=== PATIENT | male | born 1945 | race Caucasian/White ===

== ENCOUNTER → 2020-08-30 10:49 | Outpatient (BNVA) | payer MEDICARE, MEDICAID, SELFPAY | PROVIDERS: PCP Internal Medicine; Visit Provider Urology | DX: N40.0 Benign prostatic hyperplasia without lower urinary tract symptoms (principal); R39.12 Poor urinary stream; R97.20 Elevated prostate specific antigen [PSA] | CPT/HCPCS: Q3014 ==

== ENCOUNTER 2021-03-02 19:30 | Emergency (ER) | payer MEDICARE, MEDICAID, SELFPAY ==
[2021-03-02 19:52] VITALS: BMI 23.0
--- NOTE | 2021-03-02 20:09 | ED_ITS ---
HPI - Fall General Chief Complaint: Fall Stated Complaint: Fall Time Seen by Provider: 03/02/21 20:00 Source: other Mode of arrival: ambulatory Limitations: altered mental status History of Present Illness HPI Narrative: Patient 76 years old with mental challenge brought by kick press operator is he got up from the toilet lost balance and fell hitting his head to the side rail. Patient Registration Supervisor was next to him and tried to break the fall patient did not fall completely does hit the head to the side rail since then patient is behaving at his baseline ambulatory no vomiting no seizures no change in mental status Related Data Home Medications Medication Instructions Recorded Confirmed chlorhexidine gluconate 0.12 % PO 02/10/20 02/10/20 mouthwash finasteride 5 mg tablet 5 mg PO DAILY 02/10/20 02/10/20 fluoxetine 10 mg capsule mg PO 02/10/20 02/10/20 loratadine 10 mg tablet 10 mg PO DAILY 02/10/20 02/10/20 lorazepam 2 mg tablet 2 mg PO BEDTIME PRN 02/10/20 02/10/20 melatonin 3 mg tablet 3 mg PO BEDTIME 02/10/20 02/10/20 multivitamin with folic acid 400 1 tab PO DAILY 02/10/20 02/10/20 mcg tablet omeprazole 20 mg capsule,delayed mg PO 02/10/20 02/10/20 release terazosin 1 mg capsule mg PO 02/10/20 02/10/20 erythromycin with ethanol 2 % 1 appl TOPICAL BID 08/30/20 topical gel fluoxetine 20 mg capsule 20 mg PO DAILY 08/30/20 fluticasone propionate 50 spray INTRANASAL 08/30/20 mcg/actuation nasal spray,suspension loperamide 2 mg capsule 0 mg PO 08/30/20 magnesium hydroxide 400 mg/5 mL 5 ml PO BID 08/30/20 oral suspension melatonin 3 mg capsule 3 mg PO BEDTIME PRN 08/30/20 melatonin 3 mg capsule 3 mg PO BEDTIME PRN 08/30/20 omeprazole 40 mg capsule,delayed 40 mg PO DAILY 08/30/20 release Previous Rx's Medication Instructions Recorded finasteride 5 mg tablet 5 mg PO DAILY 30 Days #30 tab 09/02/20 terazosin 1 mg capsule 1 mg PO BEDTIME 30 Days #30 cap 11/13/20 Allergies Allergy/AdvReac Type Severity Reaction Status Date / Time loxapine [LOXAPINE] Allergy Unknown UNKNOWN Verified 08/30/20 10:50 mesoridazine [From SERENTIL] Allergy Unknown UNKNOWN Verified 08/30/20 10:50 Phenothiazines Allergy Unknown UNKNOWN Verified 08/30/20 10:50 [PHENOTHIAZINES] Loxitane Allergy Unknown Unknown Uncoded 08/30/20 10:50 phenothiazines Allergy Unknown Unknown Uncoded 08/30/20 10:50 SUCCINATE Allergy Unknown UNKNOWN Uncoded 01/25/20 14:39 succinate Allergy Unknown Unknown Uncoded 08/30/20 10:50 Review of Systems Review of Systems: Yes Unobtainable due to mental status [facility] Past Medical History Medical History (Updated 03/02/21 @ 20:15 by Jax Sanz MD) Barretts esophagus BPH (benign prostatic hyperplasia) Edema Elevated PSA GERD (gastroesophageal reflux disease) Incomplete emptying of bladder Incontinent of urine Kyphoscoliosis Scoliosis Weak urinary stream Family History Family History Father No problems noted. Mother No problems noted. Social History Social History Advance Directives: No Advance Directives Information Provided: No Physical Exam Vital Signs: Vital Signs: Body Mass Index 23.0 Appearance: Alert. And awake ambulatory mentally challenged Eyes: PERRLA, HEENT: Pharynx normal. Oral Mucosa moist, superficial abrasion at the top of the head Neck: Normal inspection. Neck supple. No neck tenderness CVS: Normal heart rate and rhythm. Pulses normal. Respiratory: No respiratory distress. Equal air entry bilateral, Abdomen: Soft and nontender. Bowel sounds are present, no mass palpable, Skin: Skin warm and dry. Normal skin color. Normal skin turgor. Extremities: No lower extremity edema. No calf tenderness back; no spinal tenderness Neuro: Alert and awake at his baseline Discharge Plan Discharge Clinical Impression: Head injury Qualifiers: Encounter type: initial encounter Qualified Code(s): S09.90XA - Unspecified injury of head, initial encounter Patient Disposition: Home, Self-Care Instructions: Head Injury (ED) Additional Instructions: No significant injuries noticed No need for any imaging at this time Report to the ER if patient starts vomiting/seizures/change in mental status Prescriptions: No Action finasteride 5 mg tablet 5 mg PO DAILY 30 Days Qty: 30 RF: 11 terazosin 1 mg capsule 1 mg PO BEDTIME 30 Days Qty: 30 RF: 3 finasteride 5 mg tablet 5 mg PO DAILY RF: 0 lorazepam 2 mg tablet 2 mg PO BEDTIME PRNRF: 0 loratadine 10 mg tablet 10 mg PO DAILY RF: 0 omeprazole 20 mg capsule,delayed release(DR/EC) PO RF: 0 terazosin 1 mg capsule PO RF: 0 fluoxetine 10 mg capsule PO RF: 0 melatonin 3 mg tablet 3 mg PO BEDTIME RF: 0 Thera 400 mcg tablet 1 tab PO DAILY RF: 0 chlorhexidine gluconate 0.12 % mouthwash PO RF: 0
[2021-03-02 20:46] VITALS: RESP 16
== END 2021-03-02 20:59 | disposition home or self-care (01) ==
PROVIDERS: Emergency Provider Internal Medicine; PCP Internal Medicine
DX: S09.90XA Unspecified injury of head, initial encounter (principal); R41.82 Altered mental status, unspecified; G44.309 Post-traumatic headache, unspecified, not intractable; W01.0XXA Fall on same level from slipping, tripping and stumbling without subsequent striking against object, initial encounter; Y93.9 Activity, unspecified; Y92.9 Unspecified place or not applicable; Y99.9 Unspecified external cause status; Z79.899 Other long term (current) drug therapy
CPT/HCPCS: 99283; 99284

== ENCOUNTER 2021-06-05 15:07 | Outpatient (REF) | payer MEDICARE, MEDICAID, SELFPAY | END 2021-06-05 15:08 | disposition home or self-care (01) | LOC: HO.HMGCLNP 15:07 | PROVIDERS: PCP Urology; Visit Provider Urology | DX: R39.12 Poor urinary stream (principal) | CPT/HCPCS: 87086 ==

== ENCOUNTER → 2021-08-22 11:14 | Outpatient (BNVA) | payer MEDICARE, MEDICAID, SELFPAY | PROVIDERS: PCP Urology; Visit Provider Urology | DX: R97.20 Elevated prostate specific antigen [PSA] (principal); N40.1 Benign prostatic hyperplasia with lower urinary tract symptoms; R39.12 Poor urinary stream | CPT/HCPCS: 51798; 99212 ==

== ENCOUNTER 2022-01-06 14:42 | Outpatient (REF) | payer MEDICARE, MEDICAID, SELFPAY ==
[2022-01-06 16:41] LABS: Appearance Urine Cloudy; Color Urine Yellow; Glucose Urine UA Negative (Negative); Leukocyte Esterase Urine Large (3+) (Negative); Nitrite Urine Negative (Negative); PH 6.5 (5.0-9.0); Specific Gravity - Urine <= 1.005 (1.005-1.025); Urine Blood Small (1+) (Negative); Urine Ketones Negative (Negative); Urine Protein Negative (Neg-Trace)
[2022-01-06 17:00] LABS: Bacteria Urine Trace (None Seen); Hyaline Casts Urine 0-2 /LPF (0-2); RBC Urine 0-2 /HPF (0-2); Squamous Epithelial Cell Urine 0-2 /HPF (0-2); UACC Culture Trigger YES; WBC Urine >50 /HPF (0-5)
== END 2022-01-06 14:43 | disposition home or self-care (01) ==
LOC: HO.HMGCLNP 14:42
PROVIDERS: Visit Provider Urology
DX: N40.0 Benign prostatic hyperplasia without lower urinary tract symptoms (principal)
CPT/HCPCS: 81001; 87086; 87088; 87186

== ENCOUNTER → 2022-08-21 11:30 | Outpatient (BNVA) | payer MEDICARE, MEDICAID, SELFPAY | PROVIDERS: PCP Urology; Visit Provider Urology | DX: N40.1 Benign prostatic hyperplasia with lower urinary tract symptoms (principal); N13.8 Other obstructive and reflux uropathy; Z79.899 Other long term (current) drug therapy | CPT/HCPCS: 99212 ==

== ENCOUNTER 2022-10-22 16:37 | Outpatient (REF) | payer MEDICARE, MEDICAID, SELFPAY ==
[2022-10-22 17:28] LABS: Appearance Urine Cloudy; Color Urine Yellow; Glucose Urine UA Negative (Negative); Leukocyte Esterase Urine Large (3+) (Negative); Nitrite Urine Positive (Negative); UMIC TRIGGER UA YES; Urine Blood Trace (Negative); Urine Ketones Negative (Negative); Urine Protein Negative (Neg-Trace)
[2022-10-22 17:32] LABS: Bacteria Urine 4+ (None Seen); Hyaline Casts Urine 0-2 /LPF (0-2); RBC Urine 0-2 /HPF (0-2); Squamous Epithelial Cell Urine 0-2 /HPF (0-2); WBC Urine >50 /HPF (0-5)
== END 2022-10-22 16:38 | disposition home or self-care (01) ==
LOC: HO.LNP 16:37
PROVIDERS: Visit Provider Urology
DX: R39.12 Poor urinary stream (principal); N40.0 Benign prostatic hyperplasia without lower urinary tract symptoms
CPT/HCPCS: 81001; 87086; 87088; 87186

== ENCOUNTER 2022-11-08 16:25 | Emergency (ER) | payer MEDICARE, MEDICAID, SELFPAY ==
[2022-11-08 16:53] VITALS: BP 111/71; PULSE 80; RESP 18; TEMP 36.2; O2SAT 96; BMI 23.2
--- NOTE | 2022-11-08 16:57 | ED.GENADULT ---
HPI - General Adult General Chief complaint: Urogenital-Male Stated complaint: uti? 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 Patient usually is prone to antibiotic in the past. Related Data Home Medications Medication Instructions Recorded Confirmed chlorhexidine gluconate 0.12 % PO 02/10/20 02/10/20 mouthwash finasteride 5 mg tablet 5 mg PO DAILY 02/10/20 02/10/20 fluoxetine 10 mg capsule mg PO 02/10/20 02/10/20 loratadine 10 mg tablet 10 mg PO DAILY 02/10/20 02/10/20 lorazepam 2 mg tablet 2 mg PO BEDTIME PRN 02/10/20 02/10/20 melatonin 3 mg tablet 3 mg PO BEDTIME 02/10/20 02/10/20 multivitamin with folic acid 400 1 tab PO DAILY 02/10/20 02/10/20 mcg tablet omeprazole 20 mg capsule,delayed mg PO 02/10/20 02/10/20 release terazosin 1 mg capsule mg PO 02/10/20 02/10/20 erythromycin with ethanol 2 % 1 appl topical BID 08/30/20 topical gel fluoxetine 20 mg capsule 20 mg PO DAILY 08/30/20 fluticasone propionate 50 spray intranasal 08/30/20 mcg/actuation nasal spray,suspension loperamide 2 mg capsule 0 mg PO 08/30/20 magnesium hydroxide 400 mg/5 mL 5 ml PO BID 08/30/20 oral suspension melatonin 3 mg capsule 3 mg PO BEDTIME PRN 08/30/20 melatonin 3 mg capsule 3 mg PO BEDTIME PRN 08/30/20 omeprazole 40 mg capsule,delayed 40 mg PO DAILY 08/30/20 release Previous Rx's Medication Instructions Recorded sulfamethoxazole 800 1 tab PO BID 7 days #14 tabs 01/08/22 mg-trimethoprim 160 mg tablet (Bactrim DS) terazosin 1 mg capsule 1 mg PO BEDTIME 30 days #30 caps 03/11/22 finasteride 5 mg tablet 5 mg PO DAILY 90 days #90 tabs 09/16/22 cefuroxime axetil 500 mg tablet 500 mg PO BID #14 tabs 11/09/22 Allergies Allergy/AdvReac Type Severity Reaction Status Date / Time loxapine [LOXAPINE] Allergy Unknown UNKNOWN Verified 11/08/22 16:53 mesoridazine [From SERENTIL] Allergy Unknown UNKNOWN Verified 11/08/22 16:53 Phenothiazines Allergy Unknown UNKNOWN Verified 11/08/22 16:53 [PHENOTHIAZINES] Loxitane Allergy Unknown Unknown Uncoded 08/21/22 11:52 phenothiazines Allergy Unknown Unknown Uncoded 08/21/22 11:52 SUCCINATE Allergy Unknown UNKNOWN Uncoded 08/21/22 11:52 succinate Allergy Unknown Unknown Uncoded 08/21/22 11:52 Review of Systems Review of Systems: All other systems are reviewed and are negative Constitutional: Reports as per HPI and Reports no additional constitutional complaints Eyes: Reports as per HPI and Reports no additional eye complaints Reports system reviewed and no additional complaints, except as documented Cardiovascular: Reports as per HPI and Reports no additional cardiovascular complaints Respiratory: Reports as per HPI and Reports no additional respiratory complaints Gastrointestinal: Reports as per HPI and Reports no additional gastrointestinal complaints Genitourinary: Reports no additional female genitourinary complaints Musculoskeletal: Reports no additional musculoskeletal complaints Skin/Breast: Reports system reviewed and no additional complaints, except as docu Psychiatric: Reports no additional psychiatric complaints Endocrine: Reports no additional endocrine complaints Hematologic/Lymphatic: Reports no additional hematologic/lymphatic complaints Allergic/Immunologic: Reports no additional allergic/immunologic complaints Reports system reviewed and no additional complaints, except as documented and Reports Abnormal speech present [facility] Past Medical History Medical History Barretts esophagus BPH (benign prostatic hyperplasia) Edema Elevated PSA GERD (gastroesophageal reflux disease) Incomplete emptying of bladder Incontinent of urine Kyphoscoliosis Scoliosis Weak urinary stream Family History Family History Father No problems noted. Mother No problems noted. Social History Social History Alcohol intake: never Patient Tobacco Use Status: Never used Tobacco Smoked in Last 30 Days: No Use of substances other than those prescribed or required for medical reasons: No Advance Directives: No Advance Directives Information Provided: No Physical Exam ED Vital Signs: Vital Signs - 24 hr 11/08/22 16:53 11/09/22 00:17 Temperature 97.2 F 98.0 F Pulse Rate 80 106 H Respiratory Rate 18 20 Blood Pressure 111/71 132/74 Pulse Oximetry 96 98 Oxygen Delivery Method Room Air Room Air BMI result Body Mass Index 23.2 Vital signs have been reviewed as appeared to be correct. Blood pressure normal. Heart rate normal. Respiration rate normal. Temperature normal. Oxygen saturation normal. Appearance: Alert. No acute distress. Head: Normal external exam. Normocephalic. Atraumatic. No Vazquez signs noted. No raccoon eyes noted Eyes: PERRLA. EOMI. Conjunctiva and sclera normal. Eyelids normal. ENT: TM's Normal. Pharynx normal. Uvula midline. Moist mucous membranes. No trismus noted. No drooling noted. No muffled voice noted. Neck: Normal inspection. Neck supple. FROM. No adenopathy. Thyroid Normal. No meningeal signs. No neck mass noted. CVS: Normal heart rate and rhythm. Heart sound normal. No murmurs noted. Pulses normal throughout. Respiratory: No respiratory distress. Painless inspiration. Breath sounds normal. No wheezes/rales/rhonchi noted. Chest nontender. No accessory muscle usage noted or decreased air movement noted. Abdomen: Soft and nontender. Bowel sounds normal in all 4 quadrants. No distention noted. No organomegaly noted. No visible injury noted. Back: No CVA tenderness. Full range of motion noted. Skin: Skin warm and dry. Normal skin color. Normal skin turgor. No rashes/lesions/lacerations noted. Extremities: No lower extremity edema. Extremities exhibit normal range of motion. Extremities nontender. Neuro: Cranial nerve exam: II-XII are grossly intact No motor deficit. No sensory deficit. Reflexes normal. Course Course Course Narrative: RME: 77 yold male brought to ED from care home for foul odor UA and increase urinary freqeuncy. As per care home patient has recurrent UTIS. labs and UA ordered Reevaluation(s) Reevaluation #1: 77-year-old male came in for mild UTI symptoms urine is showing mild UTI will start the patient on cefuroxime for 7 days and encouraged to drink plenty of fluids. Repeat abdominal exam is benign with no abdominal pain. Patient has no nausea, no vomiting, according to the staff patient at his baseline. Time: 01:01 Medical Decision Making Differential Diagnosis Differential Diagnoses: The differential diagnosis associated with the presentation includes (UTI, sepsis, septic shock, electrolyte abnormalities, anemia.) Admission/Observation Consideration of admission/observation: Escalation of care including admission/observation considered Lab Data MDM Lab Attestation statement: I reviewed the patient's lab results. 11/08/22 18:45 11/08/22 18:45 Labs: Lab Results 11/08/22 11/08/22 11/09/22 Range/Units 18:45 18:45 00:07 WBC 6.2 (4.8-10.8) X10*3/uL RBC 4.35 L (4.60-5.80) X10*6/uL Hgb 12.7 L (14.0-18.0) g/dl Hct 38.7 L (42.0-52.0) % MCV 89.0 (80.0-98.0) fL MCH 29.2 (27.0-33.0) pg MCHC 32.8 (31.0-36.0) g/dl RDW 13.4 (11.0-16.0) % Plt Count 243 (160-400) X10*3/uL MPV 11.5 (9.4-12.4) fL Immature Gran % (Auto) 0.3 (0.0-0.4) % Neut % (Auto) 59.1 (45-73) % Lymph % (Auto) 22.7 (20-40) % [place] % (Auto) 10.9 (2-11) % Eos % (Auto) 6.4 H (0-4) % Baso % (Auto) 0.6 (0-2) % Lymph # (Auto) 1.4 (1.2-4.9) X10*3/uL [place] # (Auto) 0.7 (0.1-1.2) X10*3/uL Eos # (Auto) 0.4 (0.0-0.4) X10*3/uL Baso # (Auto) 0.0 (0.0-0.2) X10*3/uL Abs Immat Gran (auto) 0.02 (0.00-0.03) X10*3/uL Absolute Neuts (auto) 3.7 (2.0-8.3) x10*3/uL Absolute Nucleated RBC 0.000 (0.0-0.012) X10*3/uL Nucleated RBC % (auto) 0.0 (0.0-0.2) /100WBC Sodium 140 (135-145) mmol/L Potassium 4.1 (3.3-5.1) mmol/L Chloride 105 (96-108) mmol/L Carbon Dioxide 25 (22-29) mmol/L Anion Gap 14 (12-20) BUN 32 H (9-16) mg/dL Creatinine 0.86 (0.5-1.4) mg/dL Estim Creat Clear Calc 55.5 Estimated GFR > 60 Random Glucose 114 (60-115) mg/dL Calcium 9.4 (8.4-10.2) mg/dL Total Bilirubin 0.4 (0.0-1.0) mg/dL AST 22 (5-37) U/L ALT 18 (0-40) U/L Alkaline Phosphatase 73 (39-117) U/L Total Protein 7.6 (6.5-8.0) g/dL Albumin 3.9 (3.5-5.0) g/dL Urine Color Dark Yellow Urine Appearance Clear Urine pH 5.5 (5.0-9.0) Ur Specific [place] 1.025 (1.005-1.025) Urine Protein 30 (1+) H (Neg-Trace) mg/dL Urine Glucose (UA) Negative (Negative) mg/dL Urine Ketones Trace (Negative) mg/dL Urine Blood Moderate (2+) H (Negative) Urine Nitrite Negative (Negative) Ur Leukocyte Esterase Moderate (2+) H (Negative) Urine RBC 6-10 H (0-2) /HPF Urine WBC 11-20 (0-5) /HPF Ur Squamous Epith Cells 3-5 (0-2) /HPF Calcium Oxalate Crystal Present Urine Bacteria Trace (None Seen) Hyaline Casts 11-20 (0-2) /LPF Independent Historian Clinical information obtained from an independent historian. History obtained from or confirmed by: Other (Caregiver) Discharge Plan Discharge Clinical Impression: Acute UTI Patient Disposition: Xfer [facility] Instructions: Urinary Tract Infection in Men (ED) Prescriptions: New cefuroxime axetil 500 mg tablet 500 mg PO BID Qty: 14 0RF No Action sulfamethoxazole-trimethoprim [Bactrim DS] 800-160 mg tablet 1 tab PO BID 7 Days Qty: 14 0RF terazosin 1 mg capsule 1 mg PO BEDTIME 30 Days Qty: 30 11RF finasteride 5 mg tablet 5 mg PO DAILY 90 Days Qty: 90 3RF finasteride 5 mg tablet 5 mg PO DAILY lorazepam 2 mg tablet 2 mg PO BEDTIME PRN loratadine 10 mg tablet 10 mg PO DAILY omeprazole 20 mg capsule,delayed release(DR/EC) PO terazosin 1 mg capsule PO fluoxetine 10 mg capsule PO melatonin 3 mg tablet 3 mg PO BEDTIME Thera 400 mcg tablet 1 tab PO DAILY chlorhexidine gluconate 0.12 % mouthwash PO omeprazole 40 mg capsule,delayed release(DR/EC) 40 mg PO DAILY fluoxetine 20 mg capsule 20 mg PO DAILY magnesium hydroxide 400 mg/5 mL suspension 5 ml PO BID melatonin 3 mg capsule 3 mg PO BEDTIME PRN fluticasone propionate 50 mcg/actuation spray,suspension intranasal loperamide 2 mg capsule 0 mg PO melatonin 3 mg capsule 3 mg PO BEDTIME PRN erythromycin with ethanol 2 % gel 1 appl topical BID Referrals: John Carmona MD [Primary Care Provider] - Interventions: ED Discharge Assessment Last Done: 11/09/22 01:57 Discharge Date/Time: 11/09/22 01:57
--- NOTE | 2022-11-09 00:10 | PC.NURSE ---
pt was straight cath, tolerated well
[2022-11-09 00:17] VITALS: BP 132/74; PULSE 106; RESP 20; TEMP 36.7; O2SAT 98
--- NOTE | 2022-11-09 01:34 | MHC.EDTECH ---
call out to [facility] to book transport back to senior living at [id number], ETA given was 0200
== END 2022-11-09 01:57 | disposition skilled nursing facility (03) ==
PROVIDERS: Emergency Provider Emergency Medicine; PCP Internal Medicine
DX: N39.0 Urinary tract infection, site not specified (principal); R35.0 Frequency of micturition
CPT/HCPCS: 36415; 80053; 81001; 85025; 87086; 99283; 99284

== ENCOUNTER 2023-04-09 18:08 | Emergency (ER) | payer MEDICARE, MEDICAID, SELFPAY ==
--- NOTE | ~2023-04-09 | XR_ITS ---
EXAMINATION: XR CHEST CLINICAL INFORMATION: Shortness of breath. COMPARISON: None available. TECHNIQUE: AP view of the chest was obtained. FINDINGS: Severe scoliosis with rotation limits the evaluation of parenchymal details. Equivocal focal retrocardiac opacities. No significant pleural effusion or pneumothorax. Normal heart size. Pronounced scoliosis with rib cage deformity. No acute osseous findings. Nonspecific colonic gaseous distention in the upper abdomen. XR/XR chest 1V IMPRESSION: 1. Equivocal focal retrocardiac opacities. Correlate clinically for aspiration or pneumonia. 2. Pronounced scoliosis. 3. Nonspecific colonic gaseous distention; further evaluation with abdominal radiograph as clinically warranted.
--- NOTE | ~2023-04-09 | US_ITS ---
EXAMINATION: US VENOUS ULTRASOUND WITH DOPPLER LOWER EXTREMITY, BILATERAL CLINICAL INFORMATION: Bilateral lower extremity edema. COMPARISON: None available. TECHNIQUE: Ultrasound of the deep veins is performed from the hip to the calf with compression sonography and color and pulse Doppler assessment. Spectral analysis with color-flow imaging is performed. FINDINGS: RIGHT: There is normal venous compression and respiratory variation and augmented flow. The visualized common femoral vein, superficial femoral vein, profunda femoral vein, popliteal vein, and the visualized trifurcation region shows no evidence of deep venous thrombosis. The peroneal vein is not seen. There is no significant popliteal fossa cyst. LEFT: There is normal venous compression and respiratory variation and augmented flow. The visualized common femoral vein, superficial femoral vein, profunda femoral vein, popliteal vein, and the visualized trifurcation region shows no evidence of deep venous thrombosis. The peroneal vein is not seen. There is no significant popliteal fossa cyst. If the patient's symptoms persist, followup ultrasound in 5 days 7 days might be of value to exclude proximal propagation from a non-visualized calf vein. US/US venous duplex LE BI IMPRESSION: No DVT demonstrated in the bilateral lower extremities.
[2023-04-09 18:13] VITALS: BP 128/74; BP 138/69; PULSE 86; PULSE 88; RESP 18; O2SAT 95; O2SAT 96; BMI 25.6
--- NOTE | 2023-04-09 19:36 | ED_ITS ---
HPI - General Adult General Chief complaint: General Medical Stated complaint: Possible choking then cleared with vomiting. Time Seen by Provider: 04/09/23 18:15 Source: other (nursing home director) Limitations: other (cognitively impaired) History of Present Illness HPI narrative: Pt is a 78yo male who presents to the ED with his nursing home director after vomiting multiple times after dinner. Pt is cognitively impaired and nonverbal so information obtained from nursing home director. Director states that the pt ate spaghetti at approximately 1730 and right after he began vomiting it up. After vomiting the director states that employees were concerned that he was wheezing and possibly choked. Additionally the director says that the pt has had increased swelling of his feet that was noticed last night and is associated with itching. Pt saw specialist earlier today for this concern. Related Data Home Medications Medication Instructions Recorded Confirmed chlorhexidine gluconate 0.12 % PO 02/10/20 02/10/20 mouthwash finasteride 5 mg tablet 5 mg PO DAILY 02/10/20 02/10/20 fluoxetine 10 mg capsule mg PO 02/10/20 02/10/20 loratadine 10 mg tablet 10 mg PO DAILY 02/10/20 02/10/20 lorazepam 2 mg tablet 2 mg PO BEDTIME PRN 02/10/20 02/10/20 melatonin 3 mg tablet 3 mg PO BEDTIME 02/10/20 02/10/20 multivitamin with folic acid 400 1 tab PO DAILY 02/10/20 02/10/20 mcg tablet omeprazole 20 mg capsule,delayed mg PO 02/10/20 02/10/20 release terazosin 1 mg capsule mg PO 02/10/20 02/10/20 erythromycin with ethanol 2 % 1 appl topical BID 08/30/20 topical gel fluoxetine 20 mg capsule 20 mg PO DAILY 08/30/20 fluticasone propionate 50 spray intranasal 08/30/20 mcg/actuation nasal spray,suspension loperamide 2 mg capsule 0 mg PO 08/30/20 magnesium hydroxide 400 mg/5 mL 5 ml PO BID 08/30/20 oral suspension melatonin 3 mg capsule 3 mg PO BEDTIME PRN 08/30/20 melatonin 3 mg capsule 3 mg PO BEDTIME PRN 08/30/20 omeprazole 40 mg capsule,delayed 40 mg PO DAILY 08/30/20 release Previous Rx's Medication Instructions Recorded sulfamethoxazole 800 1 tab PO BID 7 days #14 tabs 01/08/22 mg-trimethoprim 160 mg tablet (Bactrim DS) finasteride 5 mg tablet 5 mg PO DAILY 90 days #90 tabs 09/16/22 cefuroxime axetil 500 mg tablet 500 mg PO BID #14 tabs 11/09/22 terazosin 1 mg capsule 1 mg PO BEDTIME 30 days #30 caps 03/08/23 amoxicillin 875 mg-potassium 1 tab PO BID #14 tabs 04/09/23 clavulanate 125 mg tablet Allergies Allergy/AdvReac Type Severity Reaction Status Date / Time loxapine [LOXAPINE] Allergy Unknown UNKNOWN Verified 11/08/22 16:53 mesoridazine [From SERENTIL] Allergy Unknown UNKNOWN Verified 11/08/22 16:53 Phenothiazines Allergy Unknown UNKNOWN Verified 11/08/22 16:53 [PHENOTHIAZINES] Loxitane Allergy Unknown Unknown Uncoded 08/21/22 11:52 phenothiazines Allergy Unknown Unknown Uncoded 08/21/22 11:52 SUCCINATE Allergy Unknown UNKNOWN Uncoded 08/21/22 11:52 succinate Allergy Unknown Unknown Uncoded 08/21/22 11:52 Review of Systems 2 Review of Systems: Yes Unobtainable due to mental condition (pt nonverbal and cognitively impaired) Constitutional: Constitutional: Denies chills and Denies fever(s) Gastrointestinal: Gastrointestinal: Reports vomiting PMFSH Past Medical History Medical History Barretts esophagus BPH (benign prostatic hyperplasia) Edema Elevated PSA GERD (gastroesophageal reflux disease) Incomplete emptying of bladder Incontinent of urine Kyphoscoliosis Scoliosis Weak urinary stream Family History Family History Father No problems noted. Mother No problems noted. Social History Social History Alcohol intake: never Patient Tobacco Use Status: Never used Tobacco Advance Directives: No Advance Directives Information Provided: No Physical Exam ED Vital Signs: Vital Signs - 24 hr 04/09/23 18:13 04/09/23 20:00 Pulse Rate 88 106 H Respiratory Rate 18 20 Blood Pressure 138/69 153/82 H Pulse Oximetry 95 96 Oxygen Delivery Method Room Air Room Air BMI result Body Mass Index 25.6 Const General: no acute distress, alert, awake and Physically active Orientation/consciousness: Other orientation findings (conscious) Limitations: behavioral limitations, physical limitations and other limitations (cognitively impaired) [facility] Head: Yes normal to inspection Ears: hearing grossly normal bilaterally General nose exam: Normal external nose present Eyes General: appearance normal, both eyes and all related structures Resp Effort & Inspection: normal respiratory effort Auscultation: clear to auscultation bilaterally Cardio Rate: regular rate Rhythm: regular rhythm Heart sounds: S1 normal heart sound present and S2 normal heart sound present GI Palpation (GI): Soft to palpation and no guarding Neuro General: moves all extremities Extrem Right lower extremity: edema (edema to the top of the foot with erythema) Left lower extremity: edema (top of foot with erythema) and lower leg (superficial scratches) Course Reevaluation(s) Reevaluation #1: Chest x-ray shows concern for aspiration pneumonia, given the history. The patient treated for this with Augmentin. He has not been hypoxic, tachypneic to suggest any respiratory distress. He has no leukocytosis. The patient is stable for discharge. I discussed this with the nursing home staff. Time: 21:35 Medications Administered Discontinued Medications Generic Name Dose Route Start Last Admin Trade Name Freq PRN Reason Stop Dose Admin Amoxicillin/Clavulanate Potassium 875 mg 04/09/23 21:33 04/09/23 21:54 Amoxicillin/Potassium Clav 875 Mg Tablet PO 04/09/23 21:34 875 mg ONCE ONE Administration Medical Decision Making Medical Decision Making [facility] Narrative: 78-year-old male with history of adenocarcinoma of the esophagus, mental retardation with very limited historian presents for evaluation episode of vomiting after eating dinner. Will check basic labs on the patient not vomiting. He also his leg swelling to the bilateral lower extremities which were present for last few days any apparently followed up with a specialist earlier today regarding this. Will get ultrasound to rule out DVT. Will get it a chest x-ray to evaluate for pleural effusions and heart failure. The patient's lungs sound clear, oxygen saturation is 95%. I have a low suspicion for aspiration, there was no witnessed choking episode, he was vomiting only. Differential Diagnosis Differential Diagnoses: The differential diagnosis associated with the presentation includes (new onset chf, aspiration of foreign body, gastroenteritis, pedal swelling secondary to footwear, dermatitis, leg edema) Admission/Observation Consideration of admission/observation: Escalation of care including admission/observation considered Concern for aspiration pneumonia Lab Data MDM Lab Attestation statement: I reviewed the patient's lab results. No leukocytosis. The patient has a chronic baseline anemia. Normal platelet count. The elevated 26 a normal creatinine 0.77. 04/09/23 20:05 04/09/23 20:05 Labs: Lab Results 04/09/23 04/09/23 04/09/23 Range/Units 20:05 20:07 21:53 WBC 6.8 (4.8-10.8) X10*3/uL RBC 4.12 L (4.60-5.80) X10*6/uL Hgb 12.0 L (14.0-18.0) g/dl Hct 36.9 L (42.0-52.0) % MCV 89.6 (80.0-98.0) fL MCH 29.1 (27.0-33.0) pg MCHC 32.5 (31.0-36.0) g/dl RDW 14.5 (11.0-16.0) % Plt Count 182 D (160-400) X10*3/uL MPV 10.6 (9.4-12.4) fL Immature Gran % (Auto) 0.3 (0.0-0.4) % Neut % (Auto) 54.2 (45-73) % Lymph % (Auto) 21.8 (20-40) % [place] % (Auto) 15.0 H (2-11) % Eos % (Auto) 8.3 H (0-4) % Baso % (Auto) 0.4 (0-2) % Lymph # (Auto) 1.5 (1.2-4.9) X10*3/uL [place] # (Auto) 1.0 (0.1-1.2) X10*3/uL Eos # (Auto) 0.6 H (0.0-0.4) X10*3/uL Baso # (Auto) 0.0 (0.0-0.2) X10*3/uL Abs Immat Gran (auto) 0.02 (0.00-0.03) X10*3/uL Absolute Neuts (auto) 3.7 (2.0-8.3) x10*3/uL Absolute Nucleated RBC 0.000 (0.0-0.012) X10*3/uL Nucleated RBC % (auto) 0.0 (0.0-0.2) /100WBC Sodium 140 (135-145) mmol/L Potassium 4.6 (3.3-5.1) mmol/L Chloride 110 H (96-108) mmol/L Carbon Dioxide 25 (22-29) mmol/L Anion Gap 10 L (12-20) BUN 26 H (9-16) mg/dL Creatinine 0.77 (0.5-1.4) mg/dL Estim Creat Clear Calc 57.7 Estimated GFR > 60 POC Glucose 173 H (60-115) mg/dL Random Glucose 172 H (60-115) mg/dL Calcium 8.3 L D (8.4-10.2) mg/dL Total Bilirubin 0.3 (0.0-1.0) mg/dL AST 23 (5-37) U/L ALT 27 (0-40) U/L Alkaline Phosphatase 67 (39-117) U/L B-Natriuretic Peptide 18 (<100) pg/mL Total Protein 6.6 (6.5-8.0) g/dL Albumin 3.6 (3.5-5.0) g/dL Lipase 13 (8-78) U/L Independent Interpretation I performed an independent interpretation of an: Plain X-Ray (No effusions or focal infiltrate) Radiology Impression Discussion of test interpretation with radiology: I have reviewed the radiologist's reading. (Concern for aspiration pneumonia) Discharge Plan Discharge Clinical Impression: Aspiration pneumonia Patient Disposition: Home, Self-Care Instructions: Aspiration Pneumonia (DC), Aspiration Precautions (ED) Additional Instructions: Aviva has evidence of aspiration pneumonia on x-ray. Take the antibiotic twice daily for 7 days Return for new or worsening symptoms He may take all of his other medications as prescribed Prescriptions: New amoxicillin-pot clavulanate 875-125 mg tablet 1 tab PO BID Qty: 14 0RF No Action sulfamethoxazole-trimethoprim [Bactrim DS] 800-160 mg tablet 1 tab PO BID 7 Days Qty: 14 0RF finasteride 5 mg tablet 5 mg PO DAILY 90 Days Qty: 90 3RF terazosin 1 mg capsule 1 mg PO BEDTIME 30 Days Qty: 30 11RF cefuroxime axetil 500 mg tablet 500 mg PO BID Qty: 14 0RF finasteride 5 mg tablet 5 mg PO DAILY lorazepam 2 mg tablet 2 mg PO BEDTIME PRN loratadine 10 mg tablet 10 mg PO DAILY omeprazole 20 mg capsule,delayed release(DR/EC) PO terazosin 1 mg capsule PO fluoxetine 10 mg capsule PO melatonin 3 mg tablet 3 mg PO BEDTIME Thera 400 mcg tablet 1 tab PO DAILY chlorhexidine gluconate 0.12 % mouthwash PO omeprazole 40 mg capsule,delayed release(DR/EC) 40 mg PO DAILY fluoxetine 20 mg capsule 20 mg PO DAILY magnesium hydroxide 400 mg/5 mL suspension 5 ml PO BID melatonin 3 mg capsule 3 mg PO BEDTIME PRN fluticasone propionate 50 mcg/actuation spray,suspension intranasal loperamide 2 mg capsule 0 mg PO melatonin 3 mg capsule 3 mg PO BEDTIME PRN erythromycin with ethanol 2 % gel 1 appl topical BID
[2023-04-09 20:00] VITALS: BP 153/82; PULSE 106; RESP 20; O2SAT 96
[2023-04-09 20:11] LABS: MANUAL DIFF FLAG NO
[2023-04-09 20:13] LABS: Basophils Percent Auto 0.4 % (0-2); Eosinophils Absolute Auto 0.6 X10*3/uL (0.0-0.4); Eosinophils Percent Auto 8.3 % (0-4); Hematocrit 36.9 % (42.0-52.0); Imm Gran Abs Auto 0.02 X10*3/uL (0.00-0.03); Imm Gran Pct Auto 0.3 % (0.0-0.4); Lymphocytes Absolute Auto 1.5 X10*3/uL (1.2-4.9); Lymphocytes Percent Auto 21.8 % (20-40); Mean Corpuscular HGB Conc 32.5 g/dl (31.0-36.0); Mean Corpuscular Hemoglobin 29.1 pg (27.0-33.0); Mean Corpuscular Volume 89.6 fL (80.0-98.0); Mean Platelet Volume 10.6 fL (9.4-12.4); Neutrophils Absolute Auto 3.7 x10*3/uL (2.0-8.3); Neutrophils Percent Auto 54.2 % (45-73); Platelet Count 182 X10*3/uL (160-400); Red Blood Count 4.12 X10*6/uL (4.60-5.80); Red Cell Distribution Width 14.5 % (11.0-16.0); White Blood Count 6.8 X10*3/uL (4.8-10.8)
[2023-04-09 20:37] LABS: Alanine Aminotransferase 27 U/L (0-40); Albumin Level 3.6 g/dL (3.5-5.0); Alkaline Phosphatase 67 U/L (39-117); Anion Gap 10 (12-20); Aspartate Amino Transferase 23 U/L (5-37); Bilirubin Total 0.3 mg/dL (0.0-1.0); Blood Urea Nitrogen 26 mg/dL (9-16); Calcium 8.3 mg/dL (8.4-10.2); Carbon Dioxide 25 mmol/L (22-29); Chloride 110 mmol/L (96-108); Creatinine Clr Calc Pharmacy 57.7; Estimated Glomerular Filt Rate > 60; Glucose Random 172 mg/dL (60-115); Lipase 13 U/L (8-78); Potassium 4.6 mmol/L (3.3-5.1); Sodium 140 mmol/L (135-145); Total Protein 6.6 g/dL (6.5-8.0)
[2023-04-09 20:44] LABS: B Type Natriuretic Peptide 18 pg/mL (<100)
[2023-04-09] MEDS: Amoxicillin/Potassium Clav 875 MG TABLET PO (21:54)
[2023-04-09 21:56] LABS: Glucose, Whole Blood 173 mg/dL (60-115)
== END 2023-04-09 23:22 | disposition home or self-care (01) ==
PROVIDERS: Physician Assistant; Emergency Provider Emergency Medicine
DX: J69.0 Pneumonitis due to inhalation of food and vomit (principal); R09.89 Other specified symptoms and signs involving the circulatory and respiratory systems; R60.0 Localized edema; R06.02 Shortness of breath; Z79.899 Other long term (current) drug therapy
CPT/HCPCS: 36415; 71045; 80053; 82947; 83690; 83880; 85025; 93970; 99284

== ENCOUNTER 2023-08-26 10:39 | Outpatient (AMB) | payer MEDICARE, MEDICAID, SELFPAY ==
--- NOTE | 2023-08-26 10:51 | MHC.OFFVIS ---
Intake Intake Visit Reasons: 1y follow up Intake Note: Patient is Present for Follow Up Urology Medication: Finasteride Antibiotic Allergies:None Blood Thinners: None Allergies loxapine [LOXAPINE] Allergy (Unknown, Verified 08/26/23 10:51) UNKNOWN mesoridazine [From SERENTIL] Allergy (Unknown, Verified 08/26/23 10:51) UNKNOWN Phenothiazines [PHENOTHIAZINES] Allergy (Unknown, Verified 08/26/23 10:51) UNKNOWN Loxitane Allergy (Unknown, Uncoded 08/26/23 10:51) Unknown phenothiazines Allergy (Unknown, Uncoded 08/26/23 10:51) Unknown SUCCINATE Allergy (Unknown, Uncoded 08/26/23 10:51) UNKNOWN succinate Allergy (Unknown, Uncoded 08/26/23 10:51) Unknown Medication List - Last Reconciled 08/26/23 by Jeffry Dc MD amoxicillin-pot clavulanate 875-125 mg 1 tab PO BID cefuroxime axetil 500 mg PO BID chlorhexidine gluconate 0.12% PO erythromycin with ethanol 2 % 1 appl topical BID finasteride 5 mg PO DAILY 90 days fluoxetine 20 mg PO DAILY fluticasone propionate 50 mcg/actuation sprays intranasal loperamide 0 mg PO loratadine 10 mg PO DAILY lorazepam 2 mg PO BEDTIME PRN magnesium hydroxide 5 mL PO BID melatonin 3 mg PO BEDTIME multivitamin with folic acid 400 mcg 1 tab PO DAILY omeprazole mg PO omeprazole 40 mg PO DAILY terazosin 1 mg PO BEDTIME 30 days HPI HPI Comments History of Present Illness Details Mr Rosa is a very pleasant male. He is a patient of Dr. Carmona. He is seen for the following urologic conditions. - lower urinary tract symptoms - elevated PSA Yearly appointment He is a [facility] of a [facility] Symptoms managed with timed voiding +medications Continue with finasteride and alpha-sarah Elevated PSA/Abnormal SARAVANAN: He presents for further evaluation of elevated PSA. Current management is medication with 5AR, low dose alpha sarah. Laboratory investigations include a total PSA evaluation May 2014 2.7, May 2015 3.4, November 2015 4.4, July 2016 1.6, Dec 2016 1.6 01/25 1.6, 01/26 1.8, 08/28 1.8, 08/28 1.4, 08/30 1.0 Individualized Prostate Cancer Risk Calculator < 5% high risk. Symptoms include incomplete emptying, frequency, urgency, and are , and are stable - responds to terazosin 1mg. Overall symptoms are mild. His prior IPSS was moderate. Therapeutic plan will be continued surveillance on finasteride and terazosin PFS Medical History Barretts esophagus Kyphoscoliosis Scoliosis Edema GERD (gastroesophageal reflux disease) Incomplete emptying of bladder Weak urinary stream Incontinent of urine BPH (benign prostatic hyperplasia) Elevated PSA Family History Father No problems noted. Mother No problems noted. Social History Alcohol intake: never Patient Tobacco Use Status: Never used Tobacco Review of Systems Const Denies chills and Denies fever(s) Card Reports no additional complaints and Denies syncope Resp Denies cough GI Denies abdominal pain and Denies heartburn Reports as per HPI and Denies change in libido Neuro Denies syncope Psych Denies change in libido Endo Denies change in libido Physical Exam Const General: cooperative, healthy appearing, comfortable and no acute distress Orientation/consciousness: patient oriented x3 HEENT Face and sinus: Yes normal facial exam Mouth: moist mucous membranes Neck Neck: Yes normal visual inspection, Yes full ROM and Yes trachea midline Chest Chest palpation & inspection: normal inspection of the chest Resp Effort & Inspection: normal respiratory effort, able to speak in complete sentences and no respiratory distress GI Inspection: Yes normal to inspection Back/Spine/Pelvis Cervical Spine: normal cervical lordosis Thoracic/Lumbar Spine: thoracic and lumbar spine normal to inspection Skin General skin exam: no rashes or lesions noted Neuro General: patient oriented x3, gait normal, tone normal and moves all extremities Extrem General: Yes normal to inspection and Yes capillary refill normal Assessment & Plan Assessment & Plan (1) Elevated PSA: Code(s): R97.20 - Elevated prostate specific antigen [PSA] (2) Weak urinary stream: Code(s): R39.12 - Poor urinary stream (3) BPH (benign prostatic hyperplasia): Code(s): N40.0 - Benign prostatic hyperplasia without lower urinary tract symptoms Plan 12 month follow-up Continue medication Medications: Refilled terazosin 1 mg PO BEDTIME 30 days 30 caps 11RF finasteride 5 mg PO DAILY 90 days 90 tabs 3RF Discontinued sulfamethoxazole-trimethoprim 800-160 mg (Bactrim DS) Discontinued Reason: Patient Completed Course 1 tab PO BID 7 days 14 tabs 0RF Patient Instructions: Imaging studies, laboratory and physical exam results were discussed and reviewed in detail. No major barriers to patient understanding were identified. An opportunity to ask questions regarding the treatment plan was provided. All questions were answered. The patient expressed understanding and agreement with the above treatment plan. The patient is aware they should contact our office by phone for worsening of their current condition or the appearance of new urologic symptoms. Compliance is encouraged with any medications and followup testing that is ordered. It is a privilege to participate in the urologic care of your patient. If you have any questions or concerns regarding treatment for the above conditions, or other urologic issues, please do not hesitate to contact me. The office telephone contact is [phone]. This note is constructed using voice recognition software. While every effort has been made to ensure accuracy system dispatcher errors may have been included. Yours sincerely, Dr Jeffry Dc MD, [facility] - Urology Providers of Expert, Compassionate Care for the Genitourinary System Coding Level of Care Code Est Pt Level 4 (25787) Diagnoses Elevated PSA R97.20 Weak urinary stream R39.12 BPH (benign prostatic hyperplasia) N40.0
== END 2023-08-26 11:05 | disposition home or self-care (01) ==
PROVIDERS: Visit Provider Urology
DX: R97.20 Elevated prostate specific antigen [PSA] (principal); R39.12 Poor urinary stream; N40.0 Benign prostatic hyperplasia without lower urinary tract symptoms
CPT/HCPCS: 99213

== ENCOUNTER → 2023-08-26 10:39 | Outpatient (BNVA) | payer MEDICARE, MEDICAID, SELFPAY | PROVIDERS: Visit Provider Urology | DX: N40.1 Benign prostatic hyperplasia with lower urinary tract symptoms (principal); N13.8 Other obstructive and reflux uropathy; R39.12 Poor urinary stream; R97.20 Elevated prostate specific antigen [PSA] | CPT/HCPCS: 99212 ==

== ENCOUNTER 2024-03-18 18:52 | Inpatient (IN) | payer MEDICARE, MEDICAID, SELFPAY ==
--- NOTE | 2024-03-18 | ECG_ITS ---
Test Reason : TACHYCARDIA Blood Pressure : / mmHG Vent. Rate : 110 BPM Atrial Rate : 110 BPM P-R Int : 188 ms QRS Dur : 068 ms QT Int : 312 ms P-R-T Axes : 045 000 067 degrees QTc Int : 422 ms Sinus tachycardia Possible Left atrial enlargement Nonspecific ST abnormality Abnormal ECG No previous ECGs available Referred By: Generic ED Physician Electronically Signed By:KORI JONES MD
--- NOTE | ~2024-03-18 | XR_ITS ---
EXAMINATION: XR ABDOMEN KUB CLINICAL INDICATION: Abdominal distention COMPARISON: None available. TECHNIQUE: AP view of the abdomen. FINDINGS: Loops of bowel are significantly distended with possible small bowel obstruction. There is large amount of fecal debris in the colon. There is dextroscoliosis of lower thoracic-upper lumbar spine XR/XR KUB IMPRESSION: Questionably bowel obstruction and constipation Electronically signed by: Ramandeep Silva MD 03/18/2024 08:50 PM [facility]
--- NOTE | ~2024-03-18 | XR_ITS ---
EXAMINATION: XR CHEST CLINICAL INFORMATION: Dyspnea COMPARISON: Chest x-ray on 03/19/2024 TECHNIQUE: Frontal view of the chest was obtained. FINDINGS: HEART & VASCULARITY: There are mild cardiomegaly and increased pulmonary vascularity. LUNGS: Diffuse vascular prominence and superimposed patchy alveolar densities are seen in bilateral lungs, more intense in the upper lobes. Medial left lower lobe retrocardiac airspace disease with air bronchograms is also present, partially effacing the medial left hemidiaphragm. No pneumothorax is seen. BONES: There is persistent severe lower thoracic dextroscoliosis. A catheter is seen wrapping around the lower jaw of the patient ending at right side of C6 vertebral body. XR/XR chest 1V IMPRESSION: 1. Persistent Mild cardiomegaly and interval development of pulmonary venous congestion. 2. Interval increase in Diffuse vascular prominence and superimposed patchy alveolar densities in bilateral lungs, more intense in the upper lobes, compatible with worsening pneumonia. 3. Probable interval withdrawal of the coiled up enteric tube. A catheter is seen wrapping around the patient's lower jaw. 4. Persistent severe lower thoracic dextroscoliosis. Electronically signed by: Nadira Roberson MD 03/22/2024 06:42 AM EST
--- NOTE | ~2024-03-18 | CT_ITS ---
EXAMINATION: CT ABDOMEN AND PELVIS WITHOUT CONTRAST CLINICAL INFORMATION: Bowel obstruction. COMPARISON: None available. TECHNIQUE: Multidetector volumetric imaging was performed from the superior aspect of the liver through the pubic symphysis. Sagittal and coronal reformatted images were obtained on the technologist's workstation. This CT examination was performed using dose optimization techniques as appropriate, variously including the following: *Automated exposure control *Adjustment of mA and/or kV according to patient size (this includes techniques or standardized protocols for targeted exams where dose is matched to indication/reason for exam; i.e. extremities or head) *Use of iterative reconstruction technique DLP: 646 mGy-cm FINDINGS: LUNG BASES: There is elevation of the diaphragm with linear lung base opacities. LIVER, GALLBLADDER, AND BILIARY TREE: The liver is normal in size, shape, and attenuation. No focal hepatic lesion or biliary ductal dilatation is present. The gallbladder is unremarkable with no evidence of radiopaque gallstones, gallbladder wall thickening, or obvious pericholecystic inflammatory changes. PANCREAS: Atrophic/fatty infiltrated. SPLEEN: Spleen is not seen. ADRENAL GLANDS: Unremarkable. KIDNEYS AND URETERS: The kidneys are normal in size, shape, and attenuation. No hydronephrosis, hydroureter, or calculi seen. No perinephric stranding. BLADDER: Unremarkable. GASTROINTESTINAL TRACT: There is twisting at the base of the mesentery associated with sigmoid colon dilatation up to 10 cm and distention/dilatation of the more proximal colon. A small tubular structure along the cecum suggests a normal appendix. There is a moderate hiatal hernia. ABDOMINAL WALL: No significant hernia is appreciated. LYMPH NODES: Normal. VASCULAR: Unremarkable. PELVIC VISCERA: Unremarkable. OSSEOUS STRUCTURES: There is right-sided curvature of the thoracic spine and left curvature of the thoracolumbar spine. CT/CT abdomen pelvis wo IV con IMPRESSION: Twisting at the base of the mesentery with dilatation of the sigmoid colon consistent with sigmoid volvulus. Atelectatic change at the lung bases. Moderate hiatal hernia. Fleischner guidelines were followed. Electronically signed by: Joaquin Jara MD 03/19/2024 01:14 AM [facility]
--- NOTE | ~2024-03-18 | XR_ITS ---
EXAMINATION: XR CHEST CLINICAL INFORMATION: Nasogastric tube placement. COMPARISON: April 09, 2023. Correlation made with CT performed on the same day. TECHNIQUE: Frontal view of the chest was obtained. FINDINGS: The patient is rotated and the lung volumes are low limiting evaluation. The cardiomediastinal silhouette is grossly stable. There are faint basilar opacities. A G-tube is noted and appears to be coiled within a distended esophagus which was present on prior CT. The tip of G-tube is in the region of the gastroesophageal junction with side port at the level of the mid to lower chest. Distended/dilated large bowel loops are noted. There is moderate curvature of the thoracolumbar spine convex to the right. XR/XR chest 1V IMPRESSION: The G-tube appears to be coiled within a distended esophagus which was present on prior CT. The tip of the G-tube is in the region of the gastroesophageal junction with side port at the level of the mid to lower chest. Consider readjustment. There appears to be bibasilar atelectasis. Distended/dilated bowel loops again seen Electronically signed by: Joaquin Jara MD 03/19/2024 04:23 AM EST
--- NOTE | ~2024-03-18 | XR_ITS ---
EXAMINATION: XR CHEST CLINICAL INFORMATION: Follow-up aspiration versus edema. COMPARISON: Chest 03/22/2024 and chest 04/09/2023 TECHNIQUE: Frontal view of the chest was obtained. FINDINGS: The lungs are hypoexpanded with diffuse patchy opacities in both lungs likely representing infiltrates. The lungs are clear on old exam 04/09/2023. There is no pneumothorax. Pleural effusion cannot be excluded. There is moderate dextroscoliosis of dorsolumbar spine. Heart size appears enlarged with pulmonary vascularity within normal limits. XR/XR chest 1V IMPRESSION: Likely bilateral infiltrates stable to earlier exam at 1:39 AM. Electronically signed by: Bran Prado MD 03/22/2024 06:08 PM [facility]
[2024-03-18 19:15] VITALS: BP 124/80; BP 147/88; PULSE 106; PULSE 86; RESP 16; TEMP 36.6; O2SAT 95; BMI 21.0
[2024-03-18 19:32] LABS: MANUAL DIFF FLAG NO
[2024-03-18 19:36] LABS: Basophils Percent Auto 0.2 % (0-2); Hematocrit 34.8 % (42.0-52.0); Hemoglobin 11.7 g/dl (14.0-18.0); Imm Gran Abs Auto 0.05 X10*3/uL (0.00-0.03); Imm Gran Pct Auto 0.4 % (0.0-0.4); Lymphocytes Absolute Auto 0.5 X10*3/uL (1.2-4.9); Lymphocytes Percent Auto 4.4 % (20-40); Mean Corpuscular HGB Conc 33.6 g/dl (31.0-36.0); Mean Corpuscular Volume 83.3 fL (80.0-98.0); Mean Platelet Volume 11.1 fL (9.4-12.4); Monocytes Absolute Auto 1.2 X10*3/uL (0.1-1.2); Monocytes Percent Auto 10.3 % (2-11); Neutrophils Absolute Auto 9.5 x10*3/uL (2.0-8.3); Neutrophils Percent Auto 84.7 % (45-73); Platelet Count 197 X10*3/uL (160-400); Red Blood Count 4.18 X10*6/uL (4.60-5.80); Red Cell Distribution Width 14.9 % (11.0-16.0); White Blood Count 11.3 X10*3/uL (4.8-10.8)
[2024-03-18 19:37] VITALS: TEMP 37.5
--- NOTE | 2024-03-18 19:38 | PC.NURSE ---
on arrival pt is getting oob to go to the bathroom, sits on toilet for some time and back to room. uncooperative but follows commands. staff to bedside. made aware of belly distention, to bedside for eval. rectal temp obtained. staff reports pt has had some URI sx and low grade fevers at home.
--- NOTE | 2024-03-18 19:39 | ED_ITS ---
HPI - General Adult General Chief complaint: General Medical Stated complaint: [facility] staff says pt. not himself & wants eval Time Seen by Provider: 03/18/24 19:25 Source: EMS and other ([facility] staff) History of Present Illness ED Provider: Dr. Hattie Camacho HPI narrative: Patient comes to the emergency room [facility] by [facility]. According to the staff, patient has not had a bowel movement for over 24 hours, he has not been acting himself. According to EMS, the staff reported that patient has a new diagnosis of esophageal cancer. At baseline patient is nonverbal. Seems that he is able to follow commands and answer yes/no questions intermittently. Patient can not give any significant history overall. Related Data Home Medications ?Medication ?Instructions ?Recorded ?Confirmed chlorhexidine gluconate 0.12 % PO 02/10/20 08/26/23 mouthwash loratadine 10 mg tablet 10 mg PO DAILY 02/10/20 08/26/23 lorazepam 2 mg tablet 2 mg PO BEDTIME PRN 02/10/20 08/26/23 melatonin 3 mg tablet 3 mg PO BEDTIME 02/10/20 08/26/23 multivitamin with folic acid 400 1 tab PO DAILY 02/10/20 08/26/23 mcg tablet omeprazole 20 mg capsule,delayed mg PO 02/10/20 08/26/23 release erythromycin with ethanol 2 % 1 appl topical BID 08/30/20 08/26/23 topical gel fluoxetine 20 mg capsule 20 mg PO DAILY 08/30/20 08/26/23 fluticasone propionate 50 spray intranasal 08/30/20 08/26/23 mcg/actuation nasal spray,suspension loperamide 2 mg capsule 0 mg PO 08/30/20 08/26/23 magnesium hydroxide 400 mg/5 mL 5 ml PO BID 08/30/20 08/26/23 oral suspension omeprazole 40 mg capsule,delayed 40 mg PO DAILY 08/30/20 08/26/23 release Previous Rx's ?Medication ?Instructions ?Recorded cefuroxime axetil 500 mg tablet 500 mg PO BID #14 tabs 11/09/22 amoxicillin 875 mg-potassium 1 tab PO BID #14 tabs 04/09/23 clavulanate 125 mg tablet finasteride 5 mg tablet 5 mg PO DAILY 90 days #90 tabs 08/26/23 terazosin 1 mg capsule 1 mg PO BEDTIME 30 days #30 caps 08/26/23 Allergies Allergy/AdvReac Type Severity Reaction Status Date / Time loxapine [LOXAPINE] Allergy Unknown UNKNOWN Verified 03/18/24 19:17 mesoridazine [From SERENTIL] Allergy Unknown UNKNOWN Verified 03/18/24 19:17 Phenothiazines Allergy Unknown UNKNOWN Verified 03/18/24 19:17 [PHENOTHIAZINES] Loxitane Allergy Unknown Unknown Uncoded 03/18/24 19:17 phenothiazines Allergy Unknown Unknown Uncoded 03/18/24 19:17 SUCCINATE Allergy Unknown UNKNOWN Uncoded 03/18/24 19:17 succinate Allergy Unknown Unknown Uncoded 03/18/24 19:17 Review of Systems 2 Review of Systems: Yes Unobtainable due to mental status [facility] Past Medical History Medical History (Updated 03/19/24 @ 03:35 by Hattie Camacho MD) Esophageal cancer Barretts esophagus Kyphoscoliosis Scoliosis Edema GERD (gastroesophageal reflux disease) Incomplete emptying of bladder Weak urinary stream Incontinent of urine BPH (benign prostatic hyperplasia) Elevated PSA Family History Family History Father No problems noted. Mother No problems noted. Social History Social History Alcohol intake: never Patient Tobacco Use Status: Never used Tobacco Advance Directives: No Advance Directives Information Provided: Yes Physical Exam ED Vital Signs: Vital Signs - 24 hr 03/18/24 19:15 03/18/24 19:37 03/18/24 22:03 Temperature 97.8 F 99.5 F 97.8 F Pulse Rate 106 H 86 Respiratory Rate 16 16 Blood Pressure 147/88 H 144/82 H Pulse Oximetry 95 94 Oxygen Delivery Method Room Air Room Air 03/18/24 22:30 03/19/24 02:24 Temperature 99.5 F Pulse Rate 97 Respiratory Rate 18 Blood Pressure 131/78 Pulse Oximetry 98 Oxygen Delivery Method Room Air BMI result Body Mass Index 21.4 Const Other: Appearance: Alert. Seems uncomfortable Eyes: Pupils equal, round and reactive to light. ENT: Mucous membranes Neck: Normal inspection. Neck supple. No lymph nodes noted. No crepitus CVS: Normal heart rate and rhythm. Pulses normal. Normal S1 and S2 Respiratory: No respiratory distress. Breath sounds normal. No Wheezing. No rales Abdomen: Significantly distended, seems to be uncomfortable to palpation. Skin: Skin warm and dry. Normal skin color. Normal skin turgor. Extremities: No lower extremity edema. No Lacerations. No Rash Neuro: Patient nonverbal at baseline, cranial nerves 2 -12 grossly intact, patient can not participate in full asthma has been Psych: A bit agitated but redirectable Medications Administered Discontinued Medications Generic Name Dose Route Start Last Admin Trade Name Freradha PRN Reason Stop Dose Admin Ceftriaxone Sodium 1 gm 03/19/24 01:48 03/19/24 02:09 Ceftriaxone Sodium 1 Gm Vial IVPUSH 03/19/24 01:49 1 gm ONCE ONE Administration Cefuroxime Axetil 250 mg 03/18/24 23:21 03/19/24 01:56 Cefuroxime Axetil 250 Mg Tablet PO 03/18/24 23:22 Not Given ONCE ONE Piperacillin Sod/Tazobactam 50 mls @ 100 mls/hr 03/19/24 02:23 03/19/24 02:33 Sod 3.375 gm/ Sodium Chloride IV 03/19/24 02:52 100 mls/hr ONCE ONE Administration Morphine Sulfate 4 mg 03/19/24 01:44 03/19/24 01:54 Morphine Sulfate 4 Mg/Ml Cartridge IVPUSH 03/19/24 01:45 4 mg ONCE ONE Administration Protocol Medical Decision Making Medical Decision Making [facility] Narrative: My interpretation of labs: Patient's white blood cell count 11.3. Patient seems to be anemic at baseline, hemoglobin today 11.7, hematocrit 34.8. Chemistry does not show any significant abnormality other than a BUN of 47 with a creatinine of 0.99, patient likely dehydrated. Lactic acid 3.2. Serology negative for influenza RSV and COVID Patient's lactic acid and steatosis likely secondary to the small bowel obstruction. Patient does have a UTI, already received antibiotics. Patient's blood pressure has been normal, no fever. Sepsis is not suspected. -KUB shows an SBO possible volvulus CT report: Twisting of the base of the mesentery with dilation of the sigmoid colon consistent with sigmoid volvulus -I discussed the patient with patient's niece Glory Rosa who is the patient's healthcare proxy. Informed her of the current situation. Dr. Lorenzana is on the way in to evaluate the patient. -Dr. Lorenzana evaluated the patient, patient likely will need surgery. He spoke with the patient's healthcare proxy who consented to proceed with surgery -patient's nostrils and oropharynx were sprayed with 4% lidocaine . An NG-tube was placed. X-ray for position pending. Differential Diagnosis Differential Diagnoses: The differential diagnosis associated with the presentation includes (SBO, volvulus, perforation) Admission/Observation Consideration of admission/observation: Escalation of care including admission/observation considered Consult Healthcare Provider Management of the patient was discussed with: [facility] Lab Data MDM Lab Attestation statement: I reviewed the patient's lab results. 03/18/24 19:28 03/18/24 19:28 Labs: Lab Results 03/18/24 03/18/24 03/18/24 Range/Units 19:28 19:41 22:28 WBC 11.3 H (4.8-10.8) X10*3/uL RBC 4.18 L (4.60-5.80) X10*6/uL Hgb 11.7 L (14.0-18.0) g/dl Hct 34.8 L (42.0-52.0) % MCV 83.3 (80.0-98.0) fL MCH 28.0 (27.0-33.0) pg MCHC 33.6 (31.0-36.0) g/dl RDW 14.9 (11.0-16.0) % Plt Count 197 (160-400) X10*3/uL MPV 11.1 (9.4-12.4) fL Immature Gran % (Auto) 0.4 (0.0-0.4) % Neut % (Auto) 84.7 H (45-73) % Lymph % (Auto) 4.4 L (20-40) % [place] % (Auto) 10.3 (2-11) % Eos % (Auto) 0.0 (0-4) % Baso % (Auto) 0.2 (0-2) % Lymph # (Auto) 0.5 L (1.2-4.9) X10*3/uL [place] # (Auto) 1.2 (0.1-1.2) X10*3/uL Eos # (Auto) 0.0 (0.0-0.4) X10*3/uL Baso # (Auto) 0.0 (0.0-0.2) X10*3/uL Abs Immat Gran (auto) 0.05 H (0.00-0.03) X10*3/uL Absolute Neuts (auto) 9.5 H (2.0-8.3) x10*3/uL Absolute Nucleated RBC 0.000 (0.0-0.012) X10*3/uL Nucleated RBC % (auto) 0.0 (0.0-0.2) /100WBC Sodium 140 (135-145) mmol/L Potassium 3.5 (3.3-5.1) mmol/L Chloride 107 (96-108) mmol/L Carbon Dioxide 21 L (22-29) mmol/L Anion Gap 16 (12-20) BUN 47 H (9-16) mg/dL Creatinine 0.99 (0.5-1.4) mg/dL Estim Creat Clear Calc 44.6 Estimated GFR > 60 Random Glucose 173 H (60-115) mg/dL Lactic Acid (0.5-2.0) mmol/L Calcium 9.5 D (8.4-10.2) mg/dL Total Bilirubin 0.4 (0.0-1.0) mg/dL AST 36 (5-37) U/L ALT 30 (0-40) U/L Alkaline Phosphatase 103 (39-117) U/L Troponin I High Sens 46.0 H 47.3 H (<3.5-35.0) ng/L Total Protein 7.2 (6.5-8.0) g/dL Albumin 3.9 (3.5-5.0) g/dL Lipase 8 (8-78) U/L Urine Color Yellow Urine Appearance Clear Urine pH 5.5 (5.0-9.0) Ur Specific [place] 1.025 (1.005-1.025) Urine Protein 30 (1+) H (Neg-Trace) mg/dL Urine Glucose (UA) Negative (Negative) mg/dL Urine Ketones Trace (Negative) mg/dL Urine Blood Small (1+) H (Negative) Urine Nitrite Positive H (Negative) Ur Leukocyte Esterase Moderate (2+) H (Negative) Urine RBC 3-5 H (0-2) /HPF Urine WBC 21-50 H (0-5) /HPF Ur Squamous Epith Cells 0-2 (0-2) /HPF Calcium Oxalate Crystal Present Urine Bacteria 1+ (None Seen) Hyaline Casts 0-2 (0-2) /LPF Influenza Type A (PCR) NEGATIVE (Negative) Influenza Type B (PCR) NEGATIVE (Negative) RSV RNA Qual (PCR) NEGATIVE (Negative) SARS-CoV-2 RNA (RT-PCR) NEGATIVE (Negative) 03/19/24 Range/Units 02:06 WBC (4.8-10.8) X10*3/uL RBC (4.60-5.80) X10*6/uL Hgb (14.0-18.0) g/dl Hct (42.0-52.0) % MCV (80.0-98.0) fL MCH (27.0-33.0) pg MCHC (31.0-36.0) g/dl RDW (11.0-16.0) % Plt Count (160-400) X10*3/uL MPV (9.4-12.4) fL Immature Gran % (Auto) (0.0-0.4) % Neut % (Auto) (45-73) % Lymph % (Auto) (20-40) % [place] % (Auto) (2-11) % Eos % (Auto) (0-4) % Baso % (Auto) (0-2) % Lymph # (Auto) (1.2-4.9) X10*3/uL [place] # (Auto) (0.1-1.2) X10*3/uL Eos # (Auto) (0.0-0.4) X10*3/uL Baso # (Auto) (0.0-0.2) X10*3/uL Abs Immat Gran (auto) (0.00-0.03) X10*3/uL Absolute Neuts (auto) (2.0-8.3) x10*3/uL Absolute Nucleated RBC (0.0-0.012) X10*3/uL Nucleated RBC % (auto) (0.0-0.2) /100WBC Sodium (135-145) mmol/L Potassium (3.3-5.1) mmol/L Chloride (96-108) mmol/L Carbon Dioxide (22-29) mmol/L Anion Gap (12-20) BUN (9-16) mg/dL Creatinine (0.5-1.4) mg/dL Estim Creat Clear Calc Estimated GFR Random Glucose (60-115) mg/dL Lactic Acid 3.2 H* (0.5-2.0) mmol/L Calcium (8.4-10.2) mg/dL Total Bilirubin (0.0-1.0) mg/dL AST (5-37) U/L ALT (0-40) U/L Alkaline Phosphatase (39-117) U/L Troponin I High Sens (<3.5-35.0) ng/L Total Protein (6.5-8.0) g/dL Albumin (3.5-5.0) g/dL Lipase (8-78) U/L Urine Color Urine Appearance Urine pH (5.0-9.0) Ur Specific [place] (1.005-1.025) Urine Protein (Neg-Trace) mg/dL Urine Glucose (UA) (Negative) mg/dL Urine Ketones (Negative) mg/dL Urine Blood (Negative) Urine Nitrite (Negative) Ur Leukocyte Esterase (Negative) Urine RBC (0-2) /HPF Urine WBC (0-5) /HPF Ur Squamous Epith Cells (0-2) /HPF Calcium Oxalate Crystal Urine Bacteria (None Seen) Hyaline Casts (0-2) /LPF Influenza Type A (PCR) (Negative) Influenza Type B (PCR) (Negative) RSV RNA Qual (PCR) (Negative) SARS-CoV-2 RNA (RT-PCR) (Negative) Independent Interpretation I performed an independent interpretation of an: Plain X-Ray and CT Scan Radiology Impression Discussion of test interpretation with radiology: I have reviewed the radiologist's reading. Radiologist Impression: Twisting at the base of the mesentery with dilatation of the sigmoid colon consistent with sigmoid volvulus. Atelectatic change at the lung bases. Moderate hiatal hernia. Fleischner guidelines were followed. KUB: Questionably bowel obstruction and constipation Critical Care Time Critical Care Time Critical Care Time: Yes Total Critical Care Time: 75 Attestation: I have personally provided critical care time. Time includes review of lab data, radiology results, discussion with consultants, and monitoring for potential decompensation. Intervention performed as documented. Discharge Plan Discharge Clinical Impression: Volvulus Patient Disposition: Admitted As Inpatient
[2024-03-18 19:48] LABS: Alanine Aminotransferase 30 U/L (0-40); Albumin Level 3.9 g/dL (3.5-5.0); Alkaline Phosphatase 103 U/L (39-117); Anion Gap 16 (12-20); Aspartate Amino Transferase 36 U/L (5-37); Bilirubin Total 0.4 mg/dL (0.0-1.0); Blood Urea Nitrogen 47 mg/dL (9-16); Calcium 9.5 mg/dL (8.4-10.2); Carbon Dioxide 21 mmol/L (22-29); Chloride 107 mmol/L (96-108); Creatinine Clr Calc Pharmacy 44.6; Estimated Glomerular Filt Rate > 60; Glucose Random 173 mg/dL (60-115); Lipase 8 U/L (8-78); Potassium 3.5 mmol/L (3.3-5.1); Sodium 140 mmol/L (135-145); Total Protein 7.2 g/dL (6.5-8.0)
[2024-03-18 20:25] LABS: Influenza A PCR NEGATIVE (Negative); Influenza B PCR NEGATIVE (Negative); Resp Syncy Virus RNA Qual PCR NEGATIVE (Negative); SARS COV2 PCR INHOUSE NEGATIVE (Negative)
[2024-03-18 22:03] VITALS: BP 144/82; PULSE 86; RESP 16; TEMP 36.6; O2SAT 94
[2024-03-18 22:30] VITALS: TEMP 37.5
[2024-03-18 22:38] LABS: Appearance Urine Clear; Color Urine Yellow; Glucose Urine UA Negative (Negative); Leukocyte Esterase Urine Moderate (2+) (Negative); Nitrite Urine Positive (Negative); PH 5.5 (5.0-9.0); Specific Gravity - Urine 1.025 (1.005-1.025); UMIC TRIGGER UACC YES; Urine Blood Small (1+) (Negative); Urine Ketones Trace mg/dL (Negative); Urine Protein 30 (1+) mg/dL (Neg-Trace)
[2024-03-18 22:51] LABS: Bacteria Urine 1+ (None Seen); Calcium Oxalate Crystals Urine Present; Hyaline Casts Urine 0-2 /LPF (0-2); Squamous Epithelial Cell Urine 0-2 /HPF (0-2); UACC Culture Trigger YES; WBC Urine 21-50 /HPF (0-5)
[2024-03-18 22:53] LABS: Troponin-I High Sensitivity 47.3 ng/L (<3.5-35.0)
[2024-03-19] VITALS (20 sets, daily range): BP systolic 118–179; BP diastolic 65–99; PULSE 63–103; RESP 16–24; TEMP 36.1–37.4; O2SAT 93–99; BMI 21.4
[2024-03-19] MEDS: Morphine Sulfate 4 MG/ML CARTRIDGE IVPUSH (01:54)
[2024-03-19] MEDS: cefTRIAXone sodium 1 GM VIAL IVPUSH (02:09)
[2024-03-19] MEDS: Piperacillin Sodium/Tazobactam 3.375 GM in 0.9 % Sodium Chloride 50 ML IV ×4 (02:33→21:24)
[2024-03-19 02:39] LABS: Lactic Acid 3.2 mmol/L (0.5-2.0)
--- NOTE | 2024-03-19 02:39 | P.CONGS_ITS ---
History of Present Illness Consult details Consult date: 03/19/24 Reason for consult: abdominal pain Requesting physician: Hattie Camacho Narrative: 79-year-old male, nonverbal resident of [facility] presenting with abdominal distention and obstipation. He was reported by the [facility] staff to be ?not acting like himself. ? He apparently was recently diagnosed with esophageal cancer although records are not available at the time of this dictation. Patient presented to the emergency department and was noted to be markedly distended. The patient was found to be agitated especially when the abdomen was palpated. Laboratories revealed a WBC of 11.3 and lactic acid of 3.2. CT abdomen and pelvis revealed twisting at the base of the mesentery with dilated sigmoid colon up to 10 cm consistent with a sigmoid volvulus. Surgical consultation was requested for further management of the sigmoid volvulus. Review of Systems 2 Review of Systems: Yes Unobtainable due to mental status Neurologic: Reports confusion Psychiatric: Psychiatric: Reports confusion PMFSH Past Medical History Medical History Barretts esophagus Kyphoscoliosis Scoliosis Edema GERD (gastroesophageal reflux disease) Incomplete emptying of bladder Weak urinary stream Incontinent of urine BPH (benign prostatic hyperplasia) Elevated PSA Family History Family History Father No problems noted. Mother No problems noted. Social History Social History Alcohol intake: never Patient Tobacco Use Status: Never used Tobacco Advance Directives: No Advance Directives Information Provided: Yes Meds Allergies Allergy/AdvReac Type Severity Reaction Status Date / Time loxapine [LOXAPINE] Allergy Unknown UNKNOWN Verified 03/18/24 19:17 mesoridazine [From SERENTIL] Allergy Unknown UNKNOWN Verified 03/18/24 19:17 Phenothiazines Allergy Unknown UNKNOWN Verified 03/18/24 19:17 [PHENOTHIAZINES] Loxitane Allergy Unknown Unknown Uncoded 03/18/24 19:17 phenothiazines Allergy Unknown Unknown Uncoded 03/18/24 19:17 SUCCINATE Allergy Unknown UNKNOWN Uncoded 03/18/24 19:17 succinate Allergy Unknown Unknown Uncoded 03/18/24 19:17 Active Medications: Current Medications Piperacillin Sod/Tazobactam (Sod 3.375 gm/ Sodium Chloride) 50 mls @ 100 mls/hr IV ONCE ONE Stop: 03/19/24 02:52 Last Admin: 03/19/24 02:33 Dose: 100 mls/hr Home Medications ?Medication ?Instructions ?Recorded ?Confirmed ?Last Taken ?Type chlorhexidine gluconate 0.12 % PO 02/10/20 08/26/23 Unknown History mouthwash loratadine 10 mg tablet 10 mg PO DAILY 02/10/20 08/26/23 Unknown History lorazepam 2 mg tablet 2 mg PO BEDTIME PRN 02/10/20 08/26/23 Unknown History melatonin 3 mg tablet 3 mg PO BEDTIME 02/10/20 08/26/23 Unknown History multivitamin with folic acid 400 1 tab PO DAILY 02/10/20 08/26/23 Unknown History mcg tablet omeprazole 20 mg capsule,delayed mg PO 02/10/20 08/26/23 Unknown History release erythromycin with ethanol 2 % 1 appl topical BID 08/30/20 08/26/23 Unknown History topical gel fluoxetine 20 mg capsule 20 mg PO DAILY 08/30/20 08/26/23 Unknown History fluticasone propionate 50 spray intranasal 08/30/20 08/26/23 Unknown History mcg/actuation nasal spray,suspension loperamide 2 mg capsule 0 mg PO 08/30/20 08/26/23 Unknown History magnesium hydroxide 400 mg/5 mL 5 ml PO BID 08/30/20 08/26/23 Unknown History oral suspension omeprazole 40 mg capsule,delayed 40 mg PO DAILY 08/30/20 08/26/23 Unknown History release Physical Exam 2 Vital Signs: Vital Signs: Last Vital Signs Temp 99.5 F 03/18/24 22:30 Pulse 97 03/19/24 02:24 Resp 18 03/19/24 02:24 BP 131/78 03/19/24 02:24 Pulse Ox 98 03/19/24 02:24 O2 Del Method Room Air 03/19/24 02:24 BMI result Body Mass Index 21.4 Const: General: awake, confusion and ill appearing Nutritional Appearance: thin Orientation/consciousness: confusion Limitations: language barrier HEENT: Head: Yes normocephalic and Yes atraumatic Resp: Effort & Inspection: normal respiratory effort, no audible wheezes, no cough and no respiratory distress GI: Other: Marked abdominal distention with tympany to percussion, peristalsis noted, tenderness to palpation, no abdominal scars appreciated. Skin: Other: Warm and dry Neuro: General: confusion Extrem: Other: No peripheral edema Results Labs 03/18/24 19:28 03/18/24 19:28 Labs: Abnormal lab results 03/18/24 03/18/24 Range/Units 19:28 22:28 WBC 11.3 H (4.8-10.8) X10*3/uL RBC 4.18 L (4.60-5.80) X10*6/uL Hgb 11.7 L (14.0-18.0) g/dl Hct 34.8 L (42.0-52.0) % Neut % (Auto) 84.7 H (45-73) % Lymph % (Auto) 4.4 L (20-40) % Lymph # (Auto) 0.5 L (1.2-4.9) X10*3/uL Abs Immat Gran (auto) 0.05 H (0.00-0.03) X10*3/uL Absolute Neuts (auto) 9.5 H (2.0-8.3) x10*3/uL Carbon Dioxide 21 L (22-29) mmol/L BUN 47 H (9-16) mg/dL Random Glucose 173 H (60-115) mg/dL Troponin I High Sens 46.0 H 47.3 H (<3.5-35.0) ng/L Urine Protein 30 (1+) H (Neg-Trace) mg/dL Urine Blood Small (1+) H (Negative) Urine Nitrite Positive H (Negative) Ur Leukocyte Esterase Moderate (2+) H (Negative) Urine RBC 3-5 H (0-2) /HPF Urine WBC 21-50 H (0-5) /HPF Short CBC 03/18/24 Range/Units 19:28 WBC 11.3 H (4.8-10.8) X10*3/uL Hgb 11.7 L (14.0-18.0) g/dl Hct 34.8 L (42.0-52.0) % Plt Count 197 (160-400) X10*3/uL BMP 03/18/24 19:28 Sodium 140 Potassium 3.5 Chloride 107 Carbon Dioxide 21 L BUN 47 H Creatinine 0.99 Calcium 9.5 D Liver Function 03/18/24 Range/Units 19:28 Total Bilirubin 0.4 (0.0-1.0) mg/dL AST 36 (5-37) U/L ALT 30 (0-40) U/L Alkaline Phosphatase 103 (39-117) U/L Albumin 3.9 (3.5-5.0) g/dL Urine 03/18/24 Range/Units 22:28 Urine Color Yellow Urine Appearance Clear Urine pH 5.5 (5.0-9.0) Ur Specific [place] 1.025 (1.005-1.025) Urine Protein 30 (1+) H (Neg-Trace) mg/dL Urine Glucose (UA) Negative (Negative) mg/dL All other labs normal. Assessment and Plan (1) Sigmoid volvulus: Status: Acute Plan 79-year-old male patient, resident of [facility], mentally disabled presenting with abdominal distention found to have evidence of a sigmoid volvulus. Recommendation for exploratory laparotomy, sigmoid resection and colostomy were discussed with the patient's niece (patient's guardian) Glory Johnsonzniak ([phone]). After a discussion of the procedure, risks, and alternatives, she consents to the exploratory laparotomy, sigmoid resection and colostomy. Surgical team has been called in. Total time managing care of this patient today: 65 minutes. Procedures Date of Service Date of Service: 03/19/24
--- NOTE | 2024-03-19 03:25 | PC.NURSE ---
NG tube placed to L Nare by . pt pulling tube out. soft restraints placed to BUE per MD Camacho verbal order.
[2024-03-19] MEDS: 0.9 % Sodium Chloride 1,000 ML 999 ML IVCONT (03:30)
[2024-03-19] MEDS: Lidocaine HCl 4 % MPF w/MADgic 5 ML AMPUL 1 APPL TOPICAL (03:31)
--- NOTE | 2024-03-19 03:31 | PC.NURSE ---
NG tube placed to L Nare by . pt pulling tube out. soft restraints placed to BUE per MD Camacho verbal order. confirmed placement and on intermittent suction approx 150cc brown tinged output.
--- NOTE | 2024-03-19 04:07 | HO.ANESPROP2 ---
PMFSH Active Problems Active Problems: All Active Problems Volvulus (Acute) Sigmoid volvulus (Acute) BPH (benign prostatic hyperplasia) (Acute) Weak urinary stream (Acute) Elevated PSA (Acute) Past Medical History Medical History Esophageal cancer Barretts esophagus Kyphoscoliosis Scoliosis Edema GERD (gastroesophageal reflux disease) Incomplete emptying of bladder Weak urinary stream Incontinent of urine BPH (benign prostatic hyperplasia) Elevated PSA Functional capacity: independent ambulation Family History Family History Father No problems noted. Mother No problems noted. Surgical History History of Problems with Anesthesia: No Social History Social History Alcohol intake: never Patient Tobacco Use Status: Never used Tobacco Advance Directives: No Advance Directives Information Provided: Yes Meds Allergies Allergy/AdvReac Type Severity Reaction Status Date / Time loxapine [LOXAPINE] Allergy Unknown UNKNOWN Verified 03/18/24 19:17 mesoridazine [From SERENTIL] Allergy Unknown UNKNOWN Verified 03/18/24 19:17 Phenothiazines Allergy Unknown UNKNOWN Verified 03/18/24 19:17 [PHENOTHIAZINES] Loxitane Allergy Unknown Unknown Uncoded 03/18/24 19:17 phenothiazines Allergy Unknown Unknown Uncoded 03/18/24 19:17 SUCCINATE Allergy Unknown UNKNOWN Uncoded 03/18/24 19:17 succinate Allergy Unknown Unknown Uncoded 03/18/24 19:17 Home Medications ?Medication ?Instructions ?Recorded ?Confirmed ?Last Taken ?Type chlorhexidine gluconate 0.12 % PO 02/10/20 08/26/23 Unknown History mouthwash loratadine 10 mg tablet 10 mg PO DAILY 02/10/20 08/26/23 Unknown History lorazepam 2 mg tablet 2 mg PO BEDTIME PRN 02/10/20 08/26/23 Unknown History melatonin 3 mg tablet 3 mg PO BEDTIME 02/10/20 08/26/23 Unknown History multivitamin with folic acid 400 1 tab PO DAILY 02/10/20 08/26/23 Unknown History mcg tablet omeprazole 20 mg capsule,delayed mg PO 02/10/20 08/26/23 Unknown History release erythromycin with ethanol 2 % 1 appl topical BID 08/30/20 08/26/23 Unknown History topical gel fluoxetine 20 mg capsule 20 mg PO DAILY 08/30/20 08/26/23 Unknown History fluticasone propionate 50 spray intranasal 08/30/20 08/26/23 Unknown History mcg/actuation nasal spray,suspension loperamide 2 mg capsule 0 mg PO 08/30/20 08/26/23 Unknown History magnesium hydroxide 400 mg/5 mL 5 ml PO BID 08/30/20 08/26/23 Unknown History oral suspension omeprazole 40 mg capsule,delayed 40 mg PO DAILY 08/30/20 08/26/23 Unknown History release Exam Height,Weight and Vital Signs: Height 5 ft 2 in Weight 53.1 kg Last Vital Signs Temp 99.3 F 03/19/24 03:25 Pulse 102 H 03/19/24 03:25 Resp 16 03/19/24 03:25 BP 144/91 H 03/19/24 03:25 Pulse Ox 94 03/19/24 03:25 O2 Del Method Room Air, Venturi Mask 03/19/24 03:25 Pertinent Lab Results Pertinent Lab Results: Laboratory Tests 03/18/24 03/18/24 03/18/24 19:28 19:41 22:28 WBC 11.3 H RBC 4.18 L Hgb 11.7 L Hct 34.8 L MCV 83.3 MCH 28.0 MCHC 33.6 RDW 14.9 Plt Count 197 MPV 11.1 Immature Gran % (Auto) 0.4 Neut % (Auto) 84.7 H Lymph % (Auto) 4.4 L [place] % (Auto) 10.3 Eos % (Auto) 0.0 Baso % (Auto) 0.2 Lymph # (Auto) 0.5 L [place] # (Auto) 1.2 Eos # (Auto) 0.0 Baso # (Auto) 0.0 Abs Immat Gran (auto) 0.05 H Absolute Neuts (auto) 9.5 H Absolute Nucleated RBC 0.000 Nucleated RBC % (auto) 0.0 Sodium 140 Potassium 3.5 Chloride 107 Carbon Dioxide 21 L Anion Gap 16 BUN 47 H Creatinine 0.99 Estim Creat Clear Calc 44.6 Estimated GFR > 60 Random Glucose 173 H Lactic Acid Calcium 9.5 D Total Bilirubin 0.4 AST 36 ALT 30 Alkaline Phosphatase 103 Troponin I High Sens 46.0 H 47.3 H Total Protein 7.2 Albumin 3.9 Lipase 8 Urine Color Yellow Urine Appearance Clear Urine pH 5.5 Ur Specific [place] 1.025 Urine Protein 30 (1+) H Urine Glucose (UA) Negative Urine Ketones Trace Urine Blood Small (1+) H Urine Nitrite Positive H Ur Leukocyte Esterase Moderate (2+) H Urine RBC 3-5 H Urine WBC 21-50 H Ur Squamous Epith Cells 0-2 Calcium Oxalate Crystal Present Urine Bacteria 1+ Hyaline Casts 0-2 Influenza Type A (PCR) NEGATIVE Influenza Type B (PCR) NEGATIVE RSV RNA Qual (PCR) NEGATIVE SARS-CoV-2 RNA (RT-PCR) NEGATIVE 03/19/24 02:06 WBC RBC Hgb Hct MCV MCH MCHC RDW Plt Count MPV Immature Gran % (Auto) Neut % (Auto) Lymph % (Auto) [place] % (Auto) Eos % (Auto) Baso % (Auto) Lymph # (Auto) [place] # (Auto) Eos # (Auto) Baso # (Auto) Abs Immat Gran (auto) Absolute Neuts (auto) Absolute Nucleated RBC Nucleated RBC % (auto) Sodium Potassium Chloride Carbon Dioxide Anion Gap BUN Creatinine Estim Creat Clear Calc Estimated GFR Random Glucose Lactic Acid 3.2 H* Calcium Total Bilirubin AST ALT Alkaline Phosphatase Troponin I High Sens Total Protein Albumin Lipase Urine Color Urine Appearance Urine pH Ur Specific [place] Urine Protein Urine Glucose (UA) Urine Ketones Urine Blood Urine Nitrite Ur Leukocyte Esterase Urine RBC Urine WBC Ur Squamous Epith Cells Calcium Oxalate Crystal Urine Bacteria Hyaline Casts Influenza Type A (PCR) Influenza Type B (PCR) RSV RNA Qual (PCR) SARS-CoV-2 RNA (RT-PCR) Airway Mallampati Class: III TM Dist: >3cm Neck ROM: Full Heart: RRR Lungs: CYA Assessment and Plan Final Anesthetic Review History of Problems with Anesthesia: No ASA Class: III and Emergency Final Preanesthetic Review: Meds/Allgs Chart Reviewed, Consent Obtained/Reviewed and Anes Risks/Benef Reviewed Patient Risk: Intermediate Procedure Risk: Intermediate Anesthetic Plan Anesthetic Plan: GA Disposition: Standard PACU
[2024-03-19 04:10] LABS: Reflex Lactate? Lactic Acid Added
--- NOTE | 2024-03-19 04:37 | PC.NURSE ---
0425 restraints removed. pt transported to [facility] without issues report to Luis M ARIAS.
[2024-03-19 04:55] LABS: ~Lactic Acid-LAB USE ONLY 3.2 mmol/L (0.5-2.0)
[2024-03-19 06:27] LABS: Reflex Lactate? 2 Y
--- NOTE | 2024-03-19 06:51 | W.PM.OPN ---
Operative Note Operative Note Date of Service: 03/19/24 Narrative: Preoperative diagnosis: Sigmoid volvulus Postoperative diagnosis: Same Procedure: Exploratory laparotomy, enterolysis, Sigmoid colectomy, descending colostomy Surgeon: José Miguel Lorenzana MD Silviculture Professor: None Anesthesia: General endotracheal Indications for procedure: 79-year-old male patient with mental disability, nonverbal, resident [facility] presenting with abdominal distention and obstipation. Workup with CT abdomen revealed distended colon with twist of the mesentery suggestive of sigmoid volvulus. Operative findings: Sigmoid volvulus with dense adhesions requiring enterolysis Specimen: Sigmoid colon Estimated blood loss: 10 mL Complications: None Procedure details: Patient was brought to the OR and placed in a supine position. After administering general anesthesia a Kulkarni catheter was placed. The patient's abdomen was prepped with ChloraPrep and draped in a sterile fashion. A surgical time-out was called the consent confirmed. Patient received preoperative antibiotics and Venodyne boots were in place. Local anesthesia consisting of 0.5% Sensorcaine was then infiltrated in the midline. A midline incision was then made with a scalpel and carried out through subcutaneous tissue, through linea alba into the peritoneum. The abdomen was then explored. Markedly distended colon was identified. Dense adhesions kept the bowel adherent to adjacent loops of distended bowel. A gentle lysis of adhesions using electrocautery and Metzenbaum scissors was then used to free the sigmoid colon. This was then brought up through the incision and de torsed x2. The bowel wall was markedly distended but no evidence of perforation or ischemia was identified. The decision was made to proceed with resection of the markedly distended bowel. Beginning proximally at the proximal sigmoid colon mesentery was divided and the bowel divided using a GOYO stapler, blue 60. The mesentery was then further divided from proximal to distal using LigaSure. At the distal sigmoid colon once again a GOYO stapler was fired and the bowel divided. The remaining mesentery was divided using the LigaSure. The sigmoid colon was then passed off the table and sent to pathology for further examination. An area in the left lower quadrant was identified as the site for colostomy placement. A circular incision was then made with a scalpel and widened using electrocautery down to fascia. A cruciate incision was made in the anterior rectus sheath. The rectus muscle was then using a Raquel clamp and the posterior sheath and peritoneum entered. This was then dilated with 2 index fingers. The proximal divided bowel was then brought up through this incision and easily passed with the enough length to create a colostomy. This was secured using Brillion clamps. The abdomen was then irrigated with saline solution and suctioned dry. Fascia was then closed using a running 0 PDS looped suture. Dermis was reapproximated using interrupted 3-0 Polysorb sutures. Skin was closed using skin marisa. Attention was then directed to the ostomy. Electrocautery was used to open the staple line. The bowel was then matured to the skin using interrupted 4-0 Polysorb sutures beginning in 4 quadrants to create a salamatof. Sterile dressings were then applied followed by ostomy bag. The patient tolerated the procedure well. Sponge, instrument, and needle counts reported as correct. The patient was transferred to PACU in stable condition.
[2024-03-19] MEDS: fentaNYL citrate/PF 100 MCG/2 ML VIAL 25 MCG IVPUSH ×4 (07:28→07:43)
[2024-03-19] MEDS: Midazolam HCl/PF 2 MG/2 ML VIAL IVPUSH (07:59)
[2024-03-19 08:20] LABS: ~Lactic Acid-LAB USE ONLY 2.2 mmol/L (0.5-2.0)
[2024-03-19] MEDS: Dextrose 5 % and Lactated Ring 1,000 ML 125 ML IVCONT ×2 (08:25→16:26)
[2024-03-19] MEDS: Acetaminophen 1,000 MG/100 ML PIGGYBACK 400 MG IV ×3 (08:25→19:12)
--- NOTE | 2024-03-19 08:42 | PC.NURSE ---
Restraints checked and RNable to slide finger beneath. Pt wristband partially obscured by restraint and pushed up high on forearm. Unable to slide finger beneath ID dband. Band removed and replaced
[2024-03-19] MEDS: ondansetron HCL 4 MG/2 ML VIAL IVPUSH (11:01)
[2024-03-19] MEDS: HYDROmorphone HCl 0.5 MG/0.5 ML SYRINGE 0.25 MG IVPUSH ×3 (11:04→20:50)
[2024-03-19] MEDS: LORazepam 2 MG/ML VIAL 1 MG IVPUSH ×2 (11:16→17:11)
--- NOTE | 2024-03-19 14:10 | PHA.MEDREC ---
Pharmacy Consult ? Medication Reconciliation Pharmacy has completed the medication reconciliation. Used list from [facility].
--- NOTE | 2024-03-19 15:53 | HO.PM.IMCN ---
History of Present Illness Data of Consult Service Date: 03/19/24 Primary Care Provider: John Carmona MD [facility] Reason for consult: Medical management Patient is a 79-year-old male with a PMH significant for mental disability, HTN, adenocarcinoma of esophagus, Eubanks's esophagus, kypho-rotary scoliosis, MR, dysphagia, diet-controlled diabetes, essential tremors, BPH, GERD, anxiety, and pica who [facility] a prison and is primarily nonverbal who was admitted to the hospital under general surgery services for sigmoid volvulus. Patient underwent emergent sigmoid resection and colostomy earlier this morning. POD0. Hospitalist consult for medical management. Patient seen and evaluated at bedside where he is resting comfortably in bed. Patient is somnolent postanesthesia. Spoke with staff from prison who report patient has limited vocabulary, but is capable of making some of his needs known. Reports is usually eager to eat food and will take his medications willingly. Interview and exam limited due to patient's somnolence and baseline mentation, but does not appear to be in any acute distress. Ostomy in place. Review of Systems Review of Systems: Yes Unobtainable due to mental status FOR[facility], [facility] Medical History Esophageal cancer Barretts esophagus Kyphoscoliosis Scoliosis Edema GERD (gastroesophageal reflux disease) Incomplete emptying of bladder Weak urinary stream Incontinent of urine BPH (benign prostatic hyperplasia) Elevated PSA Functional capacity: independent ambulation Family History Father No problems noted. Mother No problems noted. Social History Household Members: Other Household Members Other:: pt lives in prison Housing: Other Housing Other:: prison Alcohol intake: never Patient Tobacco Use Status: Never used Tobacco Use of substances other than those prescribed or required for medical reasons: Unknown Currently Displaying Signs/Symptoms of Drug Intoxication Withdrawal: No Advance Directives: No Advance Directives Information Provided: Yes Do you have a plan to hurt others: No Plan Recently lost weight without trying: Unsure Eating poorly because of decreased appetite: No Nutrition Risks: No Nutritional Risk Poor oral hygiene: No Meds Allergies Allergy/AdvReac Type Severity Reaction Status Date / Time loxapine [LOXAPINE] Allergy Unknown UNKNOWN Verified 03/18/24 19:17 mesoridazine [From SERENTIL] Allergy Unknown UNKNOWN Verified 03/18/24 19:17 Phenothiazines Allergy Unknown UNKNOWN Verified 03/18/24 19:17 [PHENOTHIAZINES] Loxitane Allergy Unknown Unknown Uncoded 03/18/24 19:17 phenothiazines Allergy Unknown Unknown Uncoded 03/18/24 19:17 SUCCINATE Allergy Unknown UNKNOWN Uncoded 03/18/24 19:17 succinate Allergy Unknown Unknown Uncoded 03/18/24 19:17 Active Medications: Current Medications Hydromorphone HCl (Hydromorphone Hcl 0.5 Mg/0.5 Ml Syringe) 0.25 mg IVPUSH Q3H PRN; Protocol PRN Reason: Pain, Severe (Pain Scale 7-10) Last Admin: 03/19/24 11:04 Dose: 0.25 mg Dextrose/Lactated Ringer's (D5lr) 1,000 mls @ 125 mls/hr IVCONT .Q8H CHELITA Last Admin: 03/19/24 08:25 Dose: 125 mls/hr Piperacillin Sod/Tazobactam (Sod 3.375 gm/ Sodium Chloride) 50 mls @ 100 mls/hr IV Q6H CHELITA Last Infusion: 03/19/24 10:24 Dose: Infused Acetaminophen (Ofirmev) 1,000 mg in 100 mls @ 400 mls/hr IV Q6H CHELITA Stop: 03/20/24 08:14 Last Infusion: 03/19/24 14:10 Dose: Infused Lorazepam (Lorazepam 2 Mg/Ml Vial) 1 mg IVPUSH Q6H PRN PRN Reason: agitation Ondansetron HCl (Ondansetron Hcl 4 Mg/2 Ml Vial) 4 mg IVPUSH QID PRN PRN Reason: Nausea Last Admin: 03/19/24 11:01 Dose: 4 mg Home Medications ?Medication ?Instructions ?Recorded ?Confirmed ?Last Taken ?Type chlorhexidine gluconate 0.12 % 5 ml PO BID 02/10/20 03/19/24 Unknown History mouthwash loratadine 10 mg tablet 10 mg PO DAILY@0900 02/10/20 03/19/24 Unknown History melatonin 3 mg tablet 3 mg PO BEDTIME 02/10/20 03/19/24 Unknown History multivitamin with folic acid 400 1 tab PO DAILY 02/10/20 03/19/24 Unknown History mcg tablet fluticasone propionate 50 2 spray intranasal DAILY@0900 08/30/20 03/19/24 Unknown History mcg/actuation nasal spray,suspension loperamide 2 mg capsule 2 mg PO QID PRN loose stools 08/30/20 03/19/24 Unknown History magnesium hydroxide 400 mg/5 mL 30 ml PO BEDTIME PRN No BM for 3 08/30/20 03/19/24 Unknown History oral suspension days omeprazole 40 mg capsule,delayed 40 mg PO DAILY@0630 08/30/20 03/19/24 Unknown History release acetaminophen 325 mg tablet 650 mg PO Q6H PRN Fever Or Pain 03/19/24 03/19/24 Unknown History amantadine HCl 100 mg capsule 100 mg PO BID@0900,1200 03/19/24 03/19/24 Unknown History ammonium lactate 12 % lotion 1 appl topical BID 03/19/24 03/19/24 Unknown History bacitracin zinc 500 unit/gram 1 appl topical QID PRN superficial 03/19/24 03/19/24 Unknown History topical ointment wounds coal tar 0.5 % shampoo 1 appl topical TUFR 03/19/24 03/19/24 Unknown History deutetrabenazine 9 mg tablet 9 mg PO BIDWM 03/19/24 03/19/24 Unknown History (Austedo) finasteride 5 mg tablet 5 mg PO BEDTIME 03/19/24 03/19/24 Unknown History fluoxetine 40 mg capsule 40 mg PO DAILY@0900 03/19/24 03/19/24 Unknown History gabapentin 300 mg capsule 300 mg PO TID 03/19/24 03/19/24 Unknown History guaifenesin 100 mg/5 mL oral 100 mg PO Q6H PRN cough/cold 03/19/24 03/19/24 Unknown History liquid (Robafen) symptoms lorazepam 0.5 mg tablet 0.5 mg PO BID@1400,2100 03/19/24 03/19/24 Unknown History lorazepam 1 mg tablet 3 mg PO DAILY PRN medical 03/19/24 03/19/24 Unknown History appointments triamcinolone acetonide 0.025 % 1 appl topical BID PRN flares 03/19/24 03/19/24 Unknown History topical cream Physical Exam Vital Signs and Narrative: Vital Signs: Last Vital Signs Temp 98.2 F 03/19/24 15:44 Pulse 80 03/19/24 15:44 Resp 16 03/19/24 15:44 BP 131/72 03/19/24 15:44 Pulse Ox 96 03/19/24 15:44 O2 Del Method Nasal Cannula 03/19/24 15:44 O2 Flow Rate 3 03/19/24 15:44 BMI result Body Mass Index 21.4 General: Somnolent, post-anasthesia. Resting comfortably in bed. In no acute distress Resp: CTA bilaterally CVS: S1, S2, RRR, +murmur GI: +BS, NT, no distention, ostomy in place Skin: Warm, dry Neuro: Cranial nerves II-XII grossly intact bilaterally. Motor grossly intact bilaterally Extremities: No edema Results Labs 03/18/24 19:28 03/18/24 19:28 Labs: Laboratory Results - last 24 hr 03/18/24 03/18/24 03/18/24 19:28 19:41 22:28 MCV 83.3 MCH 28.0 MCHC 33.6 RDW 14.9 Plt Count 197 MPV 11.1 Immature Gran % (Auto) 0.4 Neut % (Auto) 84.7 H Lymph % (Auto) 4.4 L [place] % (Auto) 10.3 Eos % (Auto) 0.0 Baso % (Auto) 0.2 Lymph # (Auto) 0.5 L [place] # (Auto) 1.2 Eos # (Auto) 0.0 Baso # (Auto) 0.0 Abs Immat Gran (auto) 0.05 H Absolute Neuts (auto) 9.5 H Absolute Nucleated RBC 0.000 Nucleated RBC % (auto) 0.0 Anion Gap 16 Estim Creat Clear Calc 44.6 Estimated GFR > 60 Random Glucose 173 H Lactic Acid Lactic Acid F/U @ 2Hr Lactic Acid F/U @ 4Hr Calcium 9.5 D Total Bilirubin 0.4 AST 36 ALT 30 Alkaline Phosphatase 103 Troponin I High Sens 46.0 H 47.3 H Total Protein 7.2 Albumin 3.9 Lipase 8 Urine Color Yellow Urine Appearance Clear Urine pH 5.5 Ur Specific [place] 1.025 Urine Protein 30 (1+) H Urine Glucose (UA) Negative Urine Ketones Trace Urine Blood Small (1+) H Urine Nitrite Positive H Ur Leukocyte Esterase Moderate (2+) H Urine RBC 3-5 H Urine WBC 21-50 H Ur Squamous Epith Cells 0-2 Calcium Oxalate Crystal Present Urine Bacteria 1+ Hyaline Casts 0-2 Influenza Type A (PCR) NEGATIVE Influenza Type B (PCR) NEGATIVE RSV RNA Qual (PCR) NEGATIVE SARS-CoV-2 RNA (RT-PCR) NEGATIVE 03/19/24 03/19/24 03/19/24 02:06 04:24 07:45 MCV MCH MCHC RDW Plt Count MPV Immature Gran % (Auto) Neut % (Auto) Lymph % (Auto) [place] % (Auto) Eos % (Auto) Baso % (Auto) Lymph # (Auto) [place] # (Auto) Eos # (Auto) Baso # (Auto) Abs Immat Gran (auto) Absolute Neuts (auto) Absolute Nucleated RBC Nucleated RBC % (auto) Anion Gap Estim Creat Clear Calc Estimated GFR Random Glucose Lactic Acid 3.2 H* Lactic Acid F/U @ 2Hr 3.2 H* Lactic Acid F/U @ 4Hr 2.2 H* Calcium Total Bilirubin AST ALT Alkaline Phosphatase Troponin I High Sens Total Protein Albumin Lipase Urine Color Urine Appearance Urine pH Ur Specific [place] Urine Protein Urine Glucose (UA) Urine Ketones Urine Blood Urine Nitrite Ur Leukocyte Esterase Urine RBC Urine WBC Ur Squamous Epith Cells Calcium Oxalate Crystal Urine Bacteria Hyaline Casts Influenza Type A (PCR) Influenza Type B (PCR) RSV RNA Qual (PCR) SARS-CoV-2 RNA (RT-PCR) Imaging Radiologist's Impressions: Impressions KUB X-Ray 03/18/24 19:34 IMPRESSION: Questionably bowel obstruction and constipation Electronically signed by: Ramandeep Silva MD 03/18/2024 08:50 PM EST RP Abdomen/Pelvis CT 03/18/24 23:32 IMPRESSION: Twisting at the base of the mesentery with dilatation of the sigmoid colon consistent with sigmoid volvulus. Atelectatic change at the lung bases. Moderate hiatal hernia. Fleischner guidelines were followed. Electronically signed by: Joaquin Jara MD 03/19/2024 01:14 AM EST RP Chest X-Ray 03/19/24 03:31 IMPRESSION: The G-tube appears to be coiled within a distended esophagus which was present on prior CT. The tip of the G-tube is in the region of the gastroesophageal junction with side port at the level of the mid to lower chest. Consider readjustment. There appears to be bibasilar atelectasis. Distended/dilated bowel loops again seen Electronically signed by: Joaquin Jara MD 03/19/2024 04:23 AM [facility] Assessment and Plan (1) Sigmoid volvulus: Status: Acute Plan Patient is a 79-year-old male with a PMH significant for mental disability, HTN, adenocarcinoma of esophagus, Eubanks's esophagus, kypho-rotary scoliosis, MR, dysphagia, diet-controlled diabetes, essential tremors, BPH, GERD, anxiety, and pica who resides at a prison and is primarily nonverbal who was admitted to the hospital under general surgery services for sigmoid volvulus. Patient underwent emergent sigmoid resection and colostomy earlier this morning. POD0. Hospitalist consult for medical management. Sigmoid volvulus Ostomy in place, POD0 Plan as per general surgery Essential tremors Continue amantadine BPH Continue finasteride Mood disorder Continue fluoxetine, lorazepam Peripheral neuropathy Continue gabapentin GERD PPI Thank you for allowing us to participate in the care of this patient. Will continue to follow along with you for now.
[2024-03-19 17:22] LABS: Glucose, Whole Blood 166 mg/dL (60-115)
[2024-03-19 20:05] LABS: Glucose, Whole Blood 163 mg/dL (60-115)
[2024-03-19] MEDS: Doxazosin Mesylate 1 MG TABLET PO (20:57)
[2024-03-19] MEDS: LORazepam 0.5 MG TABLET PO (20:57)
[2024-03-19] MEDS: Finasteride 5 MG TABLET PO (21:01)
[2024-03-19] MEDS: Insulin Lispro 100 UNIT/ML 3 ML VIAL SUBCUT (21:02)
[2024-03-19] MEDS: Chlorhexidine Gluc Oral Rinse 15 ML MOUTHWASH 5 ML BUCCAL (21:03)
[2024-03-20] VITALS (7 sets, daily range): BP systolic 114–169; BP diastolic 60–75; PULSE 75–115; RESP 12–18; TEMP 36.1–36.5; O2SAT 92–94
[2024-03-20] MEDS: Dextrose 5 % and Lactated Ring 1,000 ML 125 ML IVCONT ×2 (00:02→07:28)
[2024-03-20] MEDS: Acetaminophen 1,000 MG/100 ML PIGGYBACK 400 MG IV ×2 (01:42→07:14)
[2024-03-20] MEDS: LORazepam 2 MG/ML VIAL 1 MG IVPUSH ×4 (03:53→23:36)
[2024-03-20] MEDS: Piperacillin Sodium/Tazobactam 3.375 GM in 0.9 % Sodium Chloride 50 ML IV ×2 (03:53→09:11)
[2024-03-20] MEDS: Omeprazole 40 MG CAPSULE.DR PO (06:03)
[2024-03-20 06:05] LABS: MANUAL DIFF FLAG NO
[2024-03-20 06:17] LABS: Basophils Percent Auto 0.1 % (0-2); Eosinophils Percent Auto 0.1 % (0-4); Imm Gran Abs Auto 0.13 X10*3/uL (0.00-0.03); Imm Gran Pct Auto 1.3 % (0.0-0.4); Lymphocytes Absolute Auto 0.5 X10*3/uL (1.2-4.9); Lymphocytes Percent Auto 5.2 % (20-40); Mean Corpuscular HGB Conc 32.3 g/dl (31.0-36.0); Mean Corpuscular Hemoglobin 28.2 pg (27.0-33.0); Mean Corpuscular Volume 87.3 fL (80.0-98.0); Mean Platelet Volume 11.8 fL (9.4-12.4); Monocytes Absolute Auto 1.2 X10*3/uL (0.1-1.2); Monocytes Percent Auto 11.7 % (2-11); Neutrophils Percent Auto 81.6 % (45-73); Platelet Count 134 X10*3/uL (160-400); Red Blood Count 3.55 X10*6/uL (4.60-5.80); Red Cell Distribution Width 15.4 % (11.0-16.0); White Blood Count 9.8 X10*3/uL (4.8-10.8)
[2024-03-20 06:26] LABS: Anion Gap 12 (12-20); Blood Urea Nitrogen 31 mg/dL (9-16); Carbon Dioxide 24 mmol/L (22-29); Chloride 112 mmol/L (96-108); Creatinine Clr Calc Pharmacy 64.1; Estimated Glomerular Filt Rate > 60; Glucose Random 158 mg/dL (60-115); Potassium 3.6 mmol/L (3.3-5.1); Sodium 144 mmol/L (135-145)
[2024-03-20 07:09] LABS: Glucose, Whole Blood 150 mg/dL (60-115)
[2024-03-20] MEDS: Multivitamin TABLET 1 TAB PO (07:29)
[2024-03-20] MEDS: FLUoxetine HCl 20 MG CAPSULE 40 MG PO (07:29)
[2024-03-20] MEDS: amantadine HCL 100 MG CAPSULE PO (07:29)
[2024-03-20] MEDS: Fluticasone Propionate Nasal 16 GM SPRAY 2 SPRAY NOSTRIL-B (07:30)
[2024-03-20] MEDS: Chlorhexidine Gluc Oral Rinse 15 ML MOUTHWASH 5 ML BUCCAL ×2 (07:30→19:31)
[2024-03-20] MEDS: Gabapentin 300 MG CAPSULE PO ×3 (07:30→19:32)
[2024-03-20] MEDS: Loratadine 10 MG TABLET PO (07:31)
[2024-03-20] MEDS: HYDROmorphone HCl 0.5 MG/0.5 ML SYRINGE 0.25 MG IVPUSH ×3 (07:31→20:59)
--- NOTE | 2024-03-20 09:16 | HO.POSTANES ---
Post Anesthesia Evaluation Post Anesthesia Evaluation Date of Service: 03/20/24 Vital Signs: Vital Signs Temp Pulse Resp BP Pulse Ox O2 Del Method O2 Flow Rate 03/20/24 07:20 97.7 F 76 17 169/72 H 94 Nasal Cannula 2.5 03/20/24 03:05 97.2 F 85 18 114/63 94 Nasal Cannula 2.5 03/19/24 23:10 97.4 F 78 18 119/67 96 Nasal Cannula 2.5 Anesthesia: General Endotracheal-GETA Mental Status: Sedated Pain Control: Satisfactory Nausea/Vomiting: None Hydration: Adequate Anesthesia-Related Issues: No Anes. Related Issues Comments: pt's baseline is decreased mentation
--- NOTE | 2024-03-20 09:19 | P.PNGS_ITS ---
Subjective Subjective Date of Service: 03/20/24 Interval history: long-term staff at bedside. Patient sleepy. Physical Exam 2 Vital Signs: Vital Signs: Last Vital Signs Temp 97.7 F 03/20/24 07:20 Pulse 76 03/20/24 07:20 Resp 17 03/20/24 07:20 BP 169/72 H 03/20/24 07:20 Pulse Ox 94 03/20/24 07:20 O2 Del Method Nasal Cannula 03/20/24 07:20 O2 Flow Rate 2.5 03/20/24 07:20 BMI result Body Mass Index 21.4 Const: General: no acute distress and tired appearing; No ill appearing Resp: Effort & Inspection: normal respiratory effort GI: Other: ostomy edematous, beefy red centrally, slighty dusky at edges, gas in appliance midline dressing dry Inspection: Yes distended (mild ) Palpation (GI): Soft to palpation and nontender Skin: General skin exam: no rashes or lesions noted Neuro: General: moves all extremities Objective Data Active Medications Acetaminophen (Acetaminophen 325 Mg Tablet) 650 mg PO Q6H PRN PRN Reason: Fever Or Pain Amantadine HCl (Amantadine Hcl 100 Mg Capsule) 100 mg PO BID@0900,1200 [facility] Last Admin: 03/20/24 07:29 Dose: 100 mg Documented By: SAGAR Chlorhexidine Gluconate (Chlorhexidine Gluc Oral Rinse 15 Ml Mouthwash) 5 ml BUCCAL BID [facility] Last Admin: 03/20/24 07:30 Dose: 5 ml Documented By: SAGAR Doxazosin Mesylate (Doxazosin Mesylate 1 Mg Tablet) 1 mg PO BEDTIME [facility] Last Admin: 03/19/24 20:57 Dose: 1 mg Documented By: ZAHRAA Finasteride (Finasteride 5 Mg Tablet) 5 mg PO BEDTIME [facility] Last Admin: 03/19/24 21:01 Dose: 5 mg Documented By: ZHARAA Fluoxetine HCl (Fluoxetine Hcl 20 Mg Capsule) 40 mg PO DAILY@0900 [facility] Last Admin: 03/20/24 07:29 Dose: 40 mg Documented By: SAGAR Fluticasone Propionate (Fluticasone Propionate Nasal 16 Gm [place]) 2 spray NOSTRIL-B DAILY@0900 [facility] Last Admin: 03/20/24 07:30 Dose: 2 spray Documented By: SAGAR Gabapentin (Gabapentin 300 Mg Capsule) 300 mg PO TID [facility] Last Admin: 03/20/24 07:30 Dose: 300 mg Documented By: SAGAR Glucose (Glucose Gel 15 Gm Gel..Gram.) 15 gm PO Q15M PRN; Protocol PRN Reason: per Hypoglycemia Standing Ord. Guaifenesin/Dextromethorphan (Guaifenesin Dm 100/10/5 Ml 5 Ml Syrup) 5 ml PO Q6H PRN PRN Reason: cough/cold symptoms Hydromorphone HCl (Hydromorphone Hcl 0.5 Mg/0.5 Ml Syringe) 0.25 mg IVPUSH Q3H PRN; Protocol PRN Reason: Pain, Severe (Pain Scale 7-10) Last Admin: 03/20/24 07:31 Dose: 0.25 mg Documented By: SAGAR Dextrose/Lactated Ringer's (D5lr) 1,000 mls @ 80 mls/hr IVCONT .[id number] [facility] Last Admin: 03/20/24 07:28 Dose: 125 mls/hr Documented By: SAGAR Piperacillin Sod/Tazobactam (Sod 3.375 gm/ Sodium Chloride) 50 mls @ 100 mls/hr IV Q6H [facility] Last Admin: 03/20/24 09:11 Dose: 100 mls/hr Documented By: SAGAR Dextrose (D10) 250 mls @ 750 mls/hr IV Q15M PRN; Protocol PRN Reason: per Hypoglycemia Standing Ord. Insulin Human Lispro (Insulin Lispro 100 Unit/Ml 3 Ml Vial) 0 unit SUBCUT QIDACHS [facility]; Protocol Last Admin: 03/20/24 07:10 Dose: Not Given Documented By: SAGAR Non-Admin Reason: No Insulin Coverage Loratadine (Loratadine 10 Mg Tablet) 10 mg PO DAILY@0900 [facility] Last Admin: 03/20/24 07:31 Dose: 10 mg Documented By: SAGAR Lorazepam (Lorazepam 2 Mg/Ml Vial) 1 mg IVPUSH Q6H PRN PRN Reason: agitation Last Admin: 03/20/24 03:53 Dose: 1 mg Documented By: ZAHRAA Lorazepam (Lorazepam 0.5 Mg Tablet) 0.5 mg PO BID@1400,2100 [facility] Last Admin: 03/19/24 20:57 Dose: 0.5 mg Documented By: ZAHRAA Multivitamins/Vitamin C (Multivitamin Tablet) 1 tab PO DAILY [facility] Last Admin: 03/20/24 07:29 Dose: 1 tab Documented By: SAGAR Omeprazole (Omeprazole 40 Mg Capsule.) 40 mg PO DAILY@0630 [facility] Last Admin: 03/20/24 06:03 Dose: 40 mg Documented By: ZAHRAA Ondansetron HCl (Ondansetron Hcl 4 Mg/2 Ml Vial) 4 mg IVPUSH QID PRN PRN Reason: Nausea Last Admin: 03/19/24 11:01 Dose: 4 mg Documented By: GABE Labs 03/20/24 05:26 03/20/24 05:26 Labs: Laboratory Results - last 24 hr 03/19/24 03/19/24 03/20/24 17:17 20:01 05:26 MCV 87.3 MCH 28.2 MCHC 32.3 RDW 15.4 Plt Count 134 L D MPV 11.8 Immature Gran % (Auto) 1.3 H Neut % (Auto) 81.6 H Lymph % (Auto) 5.2 L [place] % (Auto) 11.7 H Eos % (Auto) 0.1 Baso % (Auto) 0.1 Lymph # (Auto) 0.5 L [place] # (Auto) 1.2 Eos # (Auto) 0.0 Baso # (Auto) 0.0 Abs Immat Gran (auto) 0.13 H Absolute Neuts (auto) 8.0 Absolute Nucleated RBC 0.000 Nucleated RBC % (auto) 0.0 Anion Gap 12 Estim Creat Clear Calc 64.1 Estimated GFR > 60 POC Glucose 166 H 163 H Random Glucose 158 H Calcium 8.0 L D 03/20/24 07:04 MCV MCH MCHC RDW Plt Count MPV Immature Gran % (Auto) Neut % (Auto) Lymph % (Auto) [place] % (Auto) Eos % (Auto) Baso % (Auto) Lymph # (Auto) [place] # (Auto) Eos # (Auto) Baso # (Auto) Abs Immat Gran (auto) Absolute Neuts (auto) Absolute Nucleated RBC Nucleated RBC % (auto) Anion Gap Estim Creat Clear Calc Estimated GFR POC Glucose 150 H Random Glucose Calcium Microbiology Microbiology Results: Microbiology 03/19/24 01:59 Blood Culture - Preliminary Blood - Venous No growth after 24 hours. 03/19/24 02:06 Blood Culture - Preliminary Blood - Venous No growth after 24 hours. 03/18/24 Unknown Urine Culture - Preliminary Urine clean catch - Clean Catch Midstream Culture in progress. Procedures Date of Service Date of Service: 03/20/24 Progress Note: A&P Assessment and plan (1) Sigmoid volvulus: Status: Acute (2) S/P colostomy: Status: Acute Plan POD #1 s/p Exploratory laparotomy, enterolysis, Sigmoid colectomy, descending colostomy for sigmoid volvulus. No acute issues. VSS. Abd benign, softly distended, dressing intact. Ostomy viable appearing with gas in appliance, no stool. AM labs reviewed, WBC normal. Cont clear liquids/nectar thick for now until ostomy output increases. Cont perez until more alert. Pain control. OOB. Ostomy education for staff. Time Spent With Patient Time: Total time managing care of this patient today ____ minutes. Quality Stroke Does the patient have a stroke diagnosis?: No VTE Prior VTE?: No VTE Risk Level:: Surgical - high VTE Device Contraindication: N/A - Device Ordered VTE Drug Contraindication: N/A - Med Ordered
[2024-03-20] MEDS: Heparin Sodium,Porcine 5,000 UNIT/ML VIAL 5000 UNIT SUBCUT ×2 (09:56→20:59)
--- NOTE | 2024-03-20 10:41 | HO.PM.IMPN ---
Subjective Subjective Date of Service: 03/20/24 Interval History: Patient resting comfortably, [facility] staff at bedside concern about patient pulling out colostomy. Patient communicate his needs through actions. Review of Systems Unable to obtain due to mental status Physical Exam Vital Signs: Vital Signs: Last Vital Signs Temp 97.7 F 03/20/24 07:20 Pulse 76 03/20/24 07:20 Resp 17 03/20/24 07:20 BP 169/72 H 03/20/24 07:20 Pulse Ox 94 03/20/24 07:20 O2 Del Method Nasal Cannula 03/20/24 07:20 O2 Flow Rate 2.5 03/20/24 07:20 BMI result Body Mass Index 21.4 Const: Other: General resting comfortably no acute distress No JVD Lungs coarse breath sounds bilaterally Heart regular rate rhythm Abdomen soft to palpation, nontender, ostomy edematous, gas in appliance Extremities no edema Skin warm and dry Objective Data Active Medications Acetaminophen (Acetaminophen 325 Mg Tablet) 650 mg PO Q6H PRN PRN Reason: Fever Or Pain Amantadine HCl (Amantadine Hcl 100 Mg Capsule) 100 mg PO BID@0900,1200 [facility] Last Admin: 03/20/24 07:29 Dose: 100 mg Documented By: SAGAR Chlorhexidine Gluconate (Chlorhexidine Gluc Oral Rinse 15 Ml Mouthwash) 5 ml BUCCAL BID [facility] Last Admin: 03/20/24 07:30 Dose: 5 ml Documented By: SAGAR Doxazosin Mesylate (Doxazosin Mesylate 1 Mg Tablet) 1 mg PO BEDTIME [facility] Last Admin: 03/19/24 20:57 Dose: 1 mg Documented By: ZAHRAA Finasteride (Finasteride 5 Mg Tablet) 5 mg PO BEDTIME [facility] Last Admin: 03/19/24 21:01 Dose: 5 mg Documented By: ZAHARA Fluoxetine HCl (Fluoxetine Hcl 20 Mg Capsule) 40 mg PO DAILY@0900 [facility] Last Admin: 03/20/24 07:29 Dose: 40 mg Documented By: SAGAR Fluticasone Propionate (Fluticasone Propionate Nasal 16 Gm [place]) 2 spray NOSTRIL-B DAILY@0900 [facility] Last Admin: 03/20/24 07:30 Dose: 2 spray Documented By: SAGRA Gabapentin (Gabapentin 300 Mg Capsule) 300 mg PO TID [facility] Last Admin: 03/20/24 07:30 Dose: 300 mg Documented By: SAGAR Glucose (Glucose Gel 15 Gm Gel..Gram.) 15 gm PO Q15M PRN; Protocol PRN Reason: per Hypoglycemia Standing Ord. Guaifenesin/Dextromethorphan (Guaifenesin Dm 100/10/5 Ml 5 Ml Syrup) 5 ml PO Q6H PRN PRN Reason: cough/cold symptoms Heparin Sodium (Porcine) (Heparin Sodium,Porcine 5,000 Unit/Ml Vial) 5,000 unit SUBCUT Q12H [facility] Last Admin: 03/20/24 09:56 Dose: 5,000 unit Documented By: SAGAR Hydromorphone HCl (Hydromorphone Hcl 0.5 Mg/0.5 Ml Syringe) 0.25 mg IVPUSH Q3H PRN; Protocol PRN Reason: Pain, Severe (Pain Scale 7-10) Last Admin: 03/20/24 07:31 Dose: 0.25 mg Documented By: SAGAR Dextrose/Lactated Ringer's (D5lr) 1,000 mls @ 80 mls/hr IVCONT .[id number] [facility] Last Admin: 03/20/24 07:28 Dose: 125 mls/hr Documented By: SAGAR Piperacillin Sod/Tazobactam (Sod 3.375 gm/ Sodium Chloride) 50 mls @ 100 mls/hr IV Q6H [facility] Last Infusion: 03/20/24 09:58 Dose: Infused Documented By: SAGAR Dextrose (D10) 250 mls @ 750 mls/hr IV Q15M PRN; Protocol PRN Reason: per Hypoglycemia Standing Ord. Insulin Human Lispro (Insulin Lispro 100 Unit/Ml 3 Ml Vial) 0 unit SUBCUT QIDACHS [facility]; Protocol Last Admin: 03/20/24 07:10 Dose: Not Given Documented By: SAGAR Non-Admin Reason: No Insulin Coverage Loratadine (Loratadine 10 Mg Tablet) 10 mg PO DAILY@0900 [facility] Last Admin: 03/20/24 07:31 Dose: 10 mg Documented By: SAGAR Lorazepam (Lorazepam 2 Mg/Ml Vial) 1 mg IVPUSH Q6H PRN PRN Reason: agitation Last Admin: 03/20/24 10:30 Dose: 1 mg Documented By: SAGAR Lorazepam (Lorazepam 0.5 Mg Tablet) 0.5 mg PO BID@1400,2100 [facility] Last Admin: 03/19/24 20:57 Dose: 0.5 mg Documented By: ZAHRAA Multivitamins/Vitamin C (Multivitamin Tablet) 1 tab PO DAILY [facility] Last Admin: 03/20/24 07:29 Dose: 1 tab Documented By: SAGAR Omeprazole (Omeprazole 40 Mg Capsule.Dr) 40 mg PO DAILY@0630 [facility] Last Admin: 03/20/24 06:03 Dose: 40 mg Documented By: ZAHRAA Ondansetron HCl (Ondansetron Hcl 4 Mg/2 Ml Vial) 4 mg IVPUSH QID PRN PRN Reason: Nausea Last Admin: 03/19/24 11:01 Dose: 4 mg Documented By: GABE Labs 03/20/24 05:26 03/20/24 05:26 Labs: Laboratory Results - last 24 hr 03/19/24 03/19/24 03/20/24 17:17 20:01 05:26 MCV 87.3 MCH 28.2 MCHC 32.3 RDW 15.4 Plt Count 134 L D MPV 11.8 Immature Gran % (Auto) 1.3 H Neut % (Auto) 81.6 H Lymph % (Auto) 5.2 L [place] % (Auto) 11.7 H Eos % (Auto) 0.1 Baso % (Auto) 0.1 Lymph # (Auto) 0.5 L [place] # (Auto) 1.2 Eos # (Auto) 0.0 Baso # (Auto) 0.0 Abs Immat Gran (auto) 0.13 H Absolute Neuts (auto) 8.0 Absolute Nucleated RBC 0.000 Nucleated RBC % (auto) 0.0 Anion Gap 12 Estim Creat Clear Calc 64.1 Estimated GFR > 60 POC Glucose 166 H 163 H Random Glucose 158 H Calcium 8.0 L D 03/20/24 07:04 MCV MCH MCHC RDW Plt Count MPV Immature Gran % (Auto) Neut % (Auto) Lymph % (Auto) [place] % (Auto) Eos % (Auto) Baso % (Auto) Lymph # (Auto) [place] # (Auto) Eos # (Auto) Baso # (Auto) Abs Immat Gran (auto) Absolute Neuts (auto) Absolute Nucleated RBC Nucleated RBC % (auto) Anion Gap Estim Creat Clear Calc Estimated GFR POC Glucose 150 H Random Glucose Calcium Microbiology Microbiology Results: Microbiology 03/19/24 01:59 Blood Culture - Preliminary Blood - Venous No growth after 24 hours. 03/19/24 02:06 Blood Culture - Preliminary Blood - Venous No growth after 24 hours. 03/18/24 Unknown Urine Culture - Preliminary Urine clean catch - Clean Catch Midstream Culture in progress. Assessment and Plan (1) S/P colostomy: Status: Acute (2) Sigmoid volvulus: Status: Acute Plan 79-year-old male with a PMH significant for mental disability, HTN, adenocarcinoma of esophagus, Eubanks's esophagus, kypho-rotary scoliosis, MR, dysphagia, diet-controlled diabetes, essential tremors, BPH, GERD, anxiety, and pica who resides at a [facility] and is primarily nonverbal who was admitted to the hospital under general surgery services for sigmoid volvulus. Patient underwent emergent sigmoid resection and colostomy earlier this morning. POD0. Hospitalist consult for medical management. Sigmoid volvulus POD 1 status post exploratory laparotomy, enterolysis, sigmoid colectomy, descending colostomy On clear liquids/nectar thick further treatment plan as per General surgery DC IV fluids Wean oxygen as tolerated, not on home oxygen DC Kulkarni once patient more awake alert Essential tremors Continue amantadine BPH Continue finasteride Mood disorder Continue fluoxetine, lorazepam Peripheral neuropathy Continue gabapentin GERD PPI Thanks for the consult, Will sign off please reconsult for any recurrent medical issues. Quality Stroke Does the patient have a stroke diagnosis?: No VTE Prior VTE?: No VTE Risk Level:: Surgical - high VTE Device Contraindication: N/A - Device Ordered VTE Drug Contraindication: N/A - Med Ordered
[2024-03-20 11:29] LABS: Glucose, Whole Blood 120 mg/dL (60-115)
--- NOTE | 2024-03-20 11:31 | MHC.CM.PN ---
PT FROM [facility] HAS 24 HR CARE PT WILL BE DCD WITH A COLOSTOMY IF STAFF CAN NOT MANAGE COLOSTOMY ANOTHER NURSING [facility] WILL BE FOUND FOR PT ..PATROL OFFICER ARSENIO WILL BE IN WILL CONTACT HIM IN AM RE SAME PT WILL NEED AMB TRANSPORT PTS NIECE IS JAYJAY [phone]
[2024-03-20] MEDS: LORazepam 0.5 MG TABLET PO ×2 (14:44→19:32)
[2024-03-20 16:13] LABS: Glucose, Whole Blood 143 mg/dL (60-115)
--- NOTE | 2024-03-20 18:07 | PC.NURSE ---
Pt intermittently pulling at perez, removing O2, and taking deb and blankets off. Staff from long term along with sitter at bedside this shift. Medicated twice with IV dilaudid for facial grimacing as well as IV ativan for increased agitation. Pt pulled on perez ending with blood tinged urine. Per Gabriella Cai ok to dc perez. DTV #[id number]. Midline dressing CDI.
[2024-03-20] MEDS: oxyCODONE HCl Immed Release 5 MG TABLET PO (19:32)
[2024-03-20] MEDS: Doxazosin Mesylate 1 MG TABLET PO (19:32)
[2024-03-20] MEDS: Finasteride 5 MG TABLET PO (19:32)
[2024-03-20 20:08] LABS: Glucose, Whole Blood 138 mg/dL (60-115)
[2024-03-21] VITALS (11 sets, daily range): BP systolic 102–154; BP diastolic 56–82; PULSE 84–115; RESP 13–16; TEMP 36.3–36.8; O2SAT 91–97
[2024-03-21] MEDS: HYDROmorphone HCl 0.5 MG/0.5 ML SYRINGE 0.25 MG IVPUSH ×3 (00:53→17:31)
[2024-03-21] MEDS: LORazepam 2 MG/ML VIAL 1 MG IVPUSH ×4 (02:37→18:33)
--- NOTE | 2024-03-21 03:55 | PC.NURSE ---
Patient highly aggitated from 2300 start of my shift until second dose IV ativan around 0300. Patient is currently sleeping. assisted staff member at bedside and pt was too much to handle, pulling O2 off, breif etc.often requiring two people in the room, patient scratched [employer]. Patient pulled surgical dressing off and corner of ostomy appliance lifted up. Surgical site cleaned and redressed with ABD pad. Sharon intact. Ostomy appliance replaced.
--- NOTE | 2024-03-21 05:56 | PC.NURSE ---
patient has voided three times overnight. Kulkarni was pulled by patient during daytime
--- NOTE | 2024-03-21 07:52 | P.PNGS_ITS ---
Subjective Subjective Date of Service: 03/21/24 Interval history: Had a difficult night, tore off ostomy appliance multiple times. Did not sleep. Physical Exam 2 Vital Signs: Vital Signs: Last Vital Signs Temp 97.5 F 03/21/24 07:39 Pulse 96 03/21/24 07:39 Resp 16 03/21/24 07:39 BP 131/82 03/21/24 07:39 Pulse Ox 91 L 03/21/24 07:39 O2 Del Method Nasal Cannula 03/21/24 07:39 O2 Flow Rate 4.0 03/21/24 07:39 BMI result Body Mass Index 21.4 Const: General: alert and other (agitated) Resp: Effort & Inspection: normal respiratory effort, no respiratory distress and no use of accessory muscles GI: Other: ostomy beefy red, small amount of pasty stool in appliance incision clean Palpation (GI): Soft to palpation and nontender Percussion: Yes normal to percussion Skin: General skin exam: no rashes or lesions noted Objective Data Active Medications Acetaminophen (Acetaminophen 325 Mg Tablet) 650 mg PO Q6H PRN PRN Reason: Fever Or Pain Amantadine HCl (Amantadine Hcl 100 Mg Capsule) 100 mg PO BID@0900,1200 [facility] Last Admin: 03/20/24 12:56 Dose: Not Given Documented By: SAGAR Non-Admin Reason: lethargic Chlorhexidine Gluconate (Chlorhexidine Gluc Oral Rinse 15 Ml Mouthwash) 5 ml BUCCAL BID [facility] Last Admin: 03/20/24 19:31 Dose: 5 ml Documented By: ZAHRAA Doxazosin Mesylate (Doxazosin Mesylate 1 Mg Tablet) 1 mg PO BEDTIME [facility] Last Admin: 03/20/24 19:32 Dose: 1 mg Documented By: ZAHRAA Finasteride (Finasteride 5 Mg Tablet) 5 mg PO BEDTIME [facility] Last Admin: 03/20/24 19:32 Dose: 5 mg Documented By: ZAHRAA Fluoxetine HCl (Fluoxetine Hcl 20 Mg Capsule) 40 mg PO DAILY@0900 [facility] Last Admin: 03/20/24 07:29 Dose: 40 mg Documented By: SAGAR Fluticasone Propionate (Fluticasone Propionate Nasal 16 Gm [place]) 2 spray NOSTRIL-B DAILY@0900 [facility] Last Admin: 03/20/24 07:30 Dose: 2 spray Documented By: SAGAR Gabapentin (Gabapentin 300 Mg Capsule) 300 mg PO TID [facility] Last Admin: 03/20/24 19:32 Dose: 300 mg Documented By: ZAHRAA Glucose (Glucose Gel 15 Gm Gel..Gram.) 15 gm PO Q15M PRN; Protocol PRN Reason: per Hypoglycemia Standing Ord. Guaifenesin/Dextromethorphan (Guaifenesin Dm 100/10/5 Ml 5 Ml Syrup) 5 ml PO Q6H PRN PRN Reason: cough/cold symptoms Heparin Sodium (Porcine) (Heparin Sodium,Porcine 5,000 Unit/Ml Vial) 5,000 unit SUBCUT Q12H [facility] Last Admin: 03/20/24 20:59 Dose: 5,000 unit Documented By: ZAHRAA Hydromorphone HCl (Hydromorphone Hcl 0.5 Mg/0.5 Ml Syringe) 0.25 mg IVPUSH Q3H PRN; Protocol PRN Reason: Pain, Severe (Pain Scale 7-10) Last Admin: 03/21/24 00:53 Dose: 0.25 mg Documented By: ROB Dextrose (D10) 250 mls @ 750 mls/hr IV Q15M PRN; Protocol PRN Reason: per Hypoglycemia Standing Ord. Insulin Human Lispro (Insulin Lispro 100 Unit/Ml 3 Ml Vial) 0 unit SUBCUT QIDACHS [facility]; Protocol Last Admin: 03/20/24 20:22 Dose: Not Given Documented By: ZAHRAA Non-Admin Reason: No Insulin Coverage Loratadine (Loratadine 10 Mg Tablet) 10 mg PO DAILY@0900 [facility] Last Admin: 03/20/24 07:31 Dose: 10 mg Documented By: SAGAR Lorazepam (Lorazepam 2 Mg/Ml Vial) 1 mg IVPUSH Q6H PRN PRN Reason: agitation Last Admin: 03/21/24 05:09 Dose: 1 mg Documented By: ROB Comments: yuan dumont charge nurse contacted and eusebio to give early Lorazepam (Lorazepam 0.5 Mg Tablet) 0.5 mg PO BID@1400,2100 [facility] Last Admin: 03/20/24 19:32 Dose: 0.5 mg Documented By: ZAHRAA Multivitamins/Vitamin C (Multivitamin Tablet) 1 tab PO DAILY [facility] Last Admin: 03/20/24 07:29 Dose: 1 tab Documented By: SAGAR Omeprazole (Omeprazole 40 Mg Capsule.) 40 mg PO DAILY@0630 [facility] Last Admin: 03/21/24 05:05 Dose: Not Given Documented By: ROB Non-Admin Reason: not following directions Ondansetron HCl (Ondansetron Hcl 4 Mg/2 Ml Vial) 4 mg IVPUSH QID PRN PRN Reason: Nausea Last Admin: 03/19/24 11:01 Dose: 4 mg Documented By: GABE Oxycodone HCl (Oxycodone Hcl Immed Release 5 Mg Tablet) 5 mg PO Q4H PRN PRN Reason: Pain, Moderate(Pain Scale 4-6) Last Admin: 03/20/24 19:32 Dose: 5 mg Documented By: VIJAYQC Labs 03/20/24 05:26 03/20/24 05:26 Labs: Laboratory Results - last 24 hr 03/20/24 03/20/24 03/20/24 11:25 16:09 19:34 POC Glucose 120 H 143 H 138 H Microbiology Microbiology Results: Microbiology 03/19/24 01:59 Blood Culture - Preliminary Blood - Venous No growth after 48 hours. 03/19/24 02:06 Blood Culture - Preliminary Blood - Venous No growth after 48 hours. 03/18/24 Unknown Urine Culture - Preliminary Urine clean catch - Clean Catch Midstream Staphylococcus species Procedures Date of Service Date of Service: 03/21/24 Progress Note: A&P Assessment and plan (1) S/P colostomy: Status: Acute (2) Sigmoid volvulus: Status: Acute Plan POD #2 s/p Exploratory laparotomy, enterolysis, Sigmoid colectomy, descending colostomy for sigmoid volvulus. Agitated overnight. VSS. Abd benign, softly distended, dressing intact. Ostomy viable appearing with small amount of stool. Advance diet to ground diet, nectar thick liquids. Binder in place. Wean O2. Time Spent With Patient Time: Total time managing care of this patient today ____ minutes. Quality Stroke Does the patient have a stroke diagnosis?: No VTE Prior VTE?: No VTE Risk Level:: Surgical - high VTE Device Contraindication: N/A - Device Ordered VTE Drug Contraindication: N/A - Med Ordered
[2024-03-21 08:03] LABS: Glucose, Whole Blood 129 mg/dL (60-115)
[2024-03-21] MEDS: amantadine HCL 100 MG CAPSULE PO ×2 (08:58→13:19)
[2024-03-21] MEDS: Gabapentin 300 MG CAPSULE PO ×3 (08:58→22:27)
[2024-03-21] MEDS: Multivitamin TABLET 1 TAB PO (08:58)
[2024-03-21] MEDS: FLUoxetine HCl 20 MG CAPSULE 40 MG PO (08:58)
[2024-03-21] MEDS: Loratadine 10 MG TABLET PO (08:59)
[2024-03-21] MEDS: Heparin Sodium,Porcine 5,000 UNIT/ML VIAL 5000 UNIT SUBCUT ×2 (08:59→22:34)
[2024-03-21] MEDS: Chlorhexidine Gluc Oral Rinse 15 ML MOUTHWASH 5 ML BUCCAL (08:59)
[2024-03-21] MEDS: Fluticasone Propionate Nasal 16 GM SPRAY 2 SPRAY NOSTRIL-B (10:52)
[2024-03-21 11:30] LABS: Glucose, Whole Blood 158 mg/dL (60-115)
[2024-03-21] MEDS: oxyCODONE HCl Immed Release 5 MG TABLET PO (13:19)
--- NOTE | 2024-03-21 14:36 | PC.NURSE ---
Patient intermittently restless/ agitated/ combative. [facility] staff patient observer, custodial staff member and camera at bedside for safety. Abdominal binder applied to cover new ostomy. Small amount of root pasty stool noted in ostomy bag. Dilaudid administered at 0900 and 1mg IV ativan administered at 1045 for agitation/ restlessness. Patient incontinent of urine x 3, beginning of shift urine output was pink tinged, last episode of incontinence urine was red tinged. PA aware, continue to monitor at this time.
[2024-03-21 15:48] LABS: Glucose, Whole Blood 156 mg/dL (60-115)
[2024-03-21 20:06] LABS: Glucose, Whole Blood 159 mg/dL (60-115)
[2024-03-21] MEDS: LORazepam 0.5 MG TABLET PO (22:28)
[2024-03-21] MEDS: Doxazosin Mesylate 1 MG TABLET PO (22:28)
[2024-03-21] MEDS: Finasteride 5 MG TABLET PO ×2 (22:30)
[2024-03-22] VITALS (12 sets, daily range): BP systolic 117–156; BP diastolic 63–75; PULSE 79–104; RESP 16–30; TEMP 36.1–37.2; O2SAT 92–97
[2024-03-22] MEDS: LORazepam 2 MG/ML VIAL 1 MG IVPUSH ×4 (01:31→19:37)
[2024-03-22 01:46] LABS: Venous Blood Gas Refer to POC result
[2024-03-22 02:04] LABS: VBG Base Excess 8.5 mmol/L; VBG HCO3 28 mmol/L (22-26); VBG pCO2 25 mmHg; VBG pH 7.65 (7.32-7.43); VBG pO2 161 mmHg
[2024-03-22 02:12] LABS: B Type Natriuretic Peptide 202 pg/mL (<100)
--- NOTE | 2024-03-22 02:23 | PM.EVENT ---
Event Note Date of Service: 03/22/24 Event Note: Rapid response was called as patient with increasing oxygen requirements. Crackles heard on auscultation. No wheezing. Patient with tachypnea. Obtained x-ray, ABG. Will also obtain CBC and CMP. Concern for aspiration pneumonia, will initiate patient on IV Zosyn. No sepsis Time Spent With Patient Time: Total time managing care of this patient today ____ minutes.
[2024-03-22 03:02] LABS: MANUAL DIFF FLAG NO
[2024-03-22 03:04] LABS: Basophils Percent Auto 0.1 % (0-2); Eosinophils Percent Auto 0.2 % (0-4); Hematocrit 29.6 % (42.0-52.0); Hemoglobin 9.8 g/dl (14.0-18.0); Imm Gran Abs Auto 0.03 X10*3/uL (0.00-0.03); Imm Gran Pct Auto 0.3 % (0.0-0.4); Lymphocytes Absolute Auto 0.4 X10*3/uL (1.2-4.9); Lymphocytes Percent Auto 3.4 % (20-40); Mean Corpuscular HGB Conc 33.1 g/dl (31.0-36.0); Mean Corpuscular Hemoglobin 28.2 pg (27.0-33.0); Mean Corpuscular Volume 85.1 fL (80.0-98.0); Mean Platelet Volume 10.5 fL (9.4-12.4); Monocytes Percent Auto 8.6 % (2-11); Neutrophils Absolute Auto 9.6 x10*3/uL (2.0-8.3); Neutrophils Percent Auto 87.4 % (45-73); Platelet Count 146 X10*3/uL (160-400); Red Blood Count 3.48 X10*6/uL (4.60-5.80); Red Cell Distribution Width 15.3 % (11.0-16.0)
[2024-03-22] MEDS: HYDROmorphone HCl 0.5 MG/0.5 ML SYRINGE 0.25 MG IVPUSH ×3 (03:17→13:31)
[2024-03-22 03:18] LABS: Alanine Aminotransferase 47 U/L (0-40); Albumin Level 2.7 g/dL (3.5-5.0); Alkaline Phosphatase 78 U/L (39-117); Anion Gap 13 (12-20); Aspartate Amino Transferase 56 U/L (5-37); Bilirubin Total 0.7 mg/dL (0.0-1.0); Blood Urea Nitrogen 29 mg/dL (9-16); Calcium 8.6 mg/dL (8.4-10.2); Carbon Dioxide 26 mmol/L (22-29); Chloride 111 mmol/L (96-108); Estimated Glomerular Filt Rate > 60; Glucose Random 147 mg/dL (60-115); Lactic Acid 1.1 mmol/L (0.5-2.0); Sodium 146 mmol/L (135-145); Total Protein 5.4 g/dL (6.5-8.0)
[2024-03-22] MEDS: Piperacillin Sodium/Tazobactam 3.375 GM in 0.9 % Sodium Chloride 50 ML IV ×4 (03:20→22:05)
[2024-03-22 04:24] LABS: Glucose, Whole Blood 136 mg/dL (60-115)
--- NOTE | 2024-03-22 07:55 | PC.NURSE ---
Approximately after 01:00, pt became agitated, restless, trying to pull off his O2 NC, tachypnea. Prior to this event, pt was given CHELITA Ativan with good effect and satting at 92% via NC. Pt O2 was checked and desat to 70s/low 80s. Pt was placed on Oxymask 15L, O2 increased to 93%. RT was called and came to bed and MD Olivia was notified of the situation. Labs and chest X-ray was ordered. PRN Ativan was administered to pt, with minimal effect, see MAR. Continuous pulse oximetry was ordered as well. One hour later pt's O2 started to desat again(70s/80s) and rapid response was called. Pt became more restless /agitated, tachypnea, and crackles heard on auscultation. More labs were ordered. IV Zosyn was ordered, see MAR. Pt was able to maintain in the 90s while on 15L O2 via Oxymask. Will continue to monitor pt's O2 and symptoms. 1:1 sitter at bedside and camera in .
[2024-03-22 08:00] LABS: Glucose, Whole Blood 157 mg/dL (60-115)
[2024-03-22] MEDS: Heparin Sodium,Porcine 5,000 UNIT/ML VIAL 5000 UNIT SUBCUT (09:05)
[2024-03-22] MEDS: Dextrose 5 % and 0.45 % NaCl 1,000 ML 80 ML IVCONT (09:05)
[2024-03-22] MEDS: methylPREDNISolone Sod Succ 40 MG/ML VIAL IVPUSH ×2 (09:05→20:59)
--- NOTE | 2024-03-22 10:28 | P.PNGS_ITS ---
Subjective Subjective Date of Service: 03/22/24 <Gabriella Cai PA-C - Last Filed: 03/22/24 10:33> 03/22/24 <José Miguel Lorenzana MD - Last Filed: 03/22/24 10:39> Interval history: Continuously agitated. CXR performed yesterday for hypoxia. Started on IV zosyn for presumed aspiration PNA. <Gabriella Cai PA-C - Last Filed: 03/22/24 10:33> Physical Exam 2 Vital Signs: Vital Signs: Last Vital Signs Temp 97.8 F 03/22/24 07:23 Pulse 79 03/22/24 07:23 Resp 20 03/22/24 07:23 BP 117/67 03/22/24 07:23 Pulse Ox 97 03/22/24 07:23 O2 Del Method Oxymask 03/22/24 07:23 O2 Flow Rate 12 03/22/24 07:23 Oxygen Flow Rate 15 03/22/24 02:20 BMI result Body Mass Index 21.4 <Gabriella Cai PA-C - Last Filed: 03/22/24 10:33> Const: Other: agitated <Gabriella Cai PA-C - Last Filed: 03/22/24 10:33> Resp: Effort & Inspection: tachypneic and uses accessory muscles <Gabriella Cai PA-C - Last Filed: 03/22/24 10:33> GI: Other: ostomy beefy red, soft stool in appliance <Gabriella Cai PA-C - Last Filed: 03/22/24 10:33> Inspection: Yes incision (clean) <Gabriella Cai PA-C - Last Filed: 03/22/24 10:33> Palpation (GI): Soft to palpation and nontender <VALDEZ Tijerina Last Filed: 03/22/24 10:33> Percussion: Yes normal to percussion <Gabriella Cai PA-C - Last Filed: 03/22/24 10:33> Skin: General skin exam: no rashes or lesions noted <VALDEZ Tijerina Last Filed: 03/22/24 10:33> Objective Data Active Medications Acetaminophen (Acetaminophen 325 Mg Tablet) 650 mg PO Q6H PRN PRN Reason: Fever Or Pain Amantadine HCl (Amantadine Hcl 100 Mg Capsule) 100 mg PO BID@0900,1200 [facility] Last Admin: 03/21/24 13:19 Dose: 100 mg Documented By: LEO Chlorhexidine Gluconate (Chlorhexidine Gluc Oral Rinse 15 Ml Mouthwash) 5 ml BUCCAL BID [facility] Last Admin: 03/21/24 22:35 Dose: Not Given Documented By: DARIUS Non-Admin Reason: Patient Condition Contraindication Doxazosin Mesylate (Doxazosin Mesylate 1 Mg Tablet) 1 mg PO BEDTIME [facility] Last Admin: 03/21/24 22:28 Dose: 1 mg Documented By: DARIUS Finasteride (Finasteride 5 Mg Tablet) 5 mg PO BEDTIME [facility] Last Admin: 03/21/24 22:30 Dose: 5 mg Documented By: DARIUS Fluoxetine HCl (Fluoxetine Hcl 20 Mg Capsule) 40 mg PO DAILY@0900 [facility] Last Admin: 03/21/24 08:58 Dose: 40 mg Documented By: LEO Fluticasone Propionate (Fluticasone Propionate Nasal 16 Gm [place]) 2 spray NOSTRIL-B DAILY@0900 [facility] Last Admin: 03/22/24 10:03 Dose: Not Given Documented By: SAMMY Non-Admin Reason: Patient Refused Gabapentin (Gabapentin 300 Mg Capsule) 300 mg PO TID [facility] Last Admin: 03/21/24 22:27 Dose: 300 mg Documented By: DARIUS Glucose (Glucose Gel 15 Gm Gel..Gram.) 15 gm PO Q15M PRN; Protocol PRN Reason: per Hypoglycemia Standing Ord. Guaifenesin/Dextromethorphan (Guaifenesin Dm 100/10/5 Ml 5 Ml Syrup) 5 ml PO Q6H PRN PRN Reason: cough/cold symptoms Heparin Sodium (Porcine) (Heparin Sodium,Porcine 5,000 Unit/Ml Vial) 5,000 unit SUBCUT Q12H [facility] Last Admin: 03/22/24 09:05 Dose: 5,000 unit Documented By: SAMMY Hydromorphone HCl (Hydromorphone Hcl 0.5 Mg/0.5 Ml Syringe) 0.25 mg IVPUSH Q3H PRN; Protocol PRN Reason: Pain, Severe (Pain Scale 7-10) Last Admin: 03/22/24 09:17 Dose: 0.25 mg Documented By: SAMMY Dextrose (D10) 250 mls @ 750 mls/hr IV Q15M PRN; Protocol PRN Reason: per Hypoglycemia Standing Ord. Piperacillin Sod/Tazobactam (Sod 3.375 gm/ Sodium Chloride) 50 mls @ 100 mls/hr IV Q6H [facility] Last Infusion: 03/22/24 10:04 Dose: Infused Documented By: SAMMY Dextrose/Sodium Chloride (D51/2ns) 1,000 mls @ 80 mls/hr IVCONT .[id number] [facility] Last Admin: 03/22/24 09:05 Dose: 80 mls/hr Documented By: SAMMY Insulin Human Lispro (Insulin Lispro 100 Unit/Ml 3 Ml Vial) 0 unit SUBCUT QIDACHS [facility]; Protocol Last Admin: 03/22/24 08:10 Dose: Not Given Documented By: SAMMY Non-Admin Reason: NPO Loratadine (Loratadine 10 Mg Tablet) 10 mg PO DAILY@0900 [facility] Last Admin: 03/21/24 08:59 Dose: 10 mg Documented By: LEO Lorazepam (Lorazepam 0.5 Mg Tablet) 0.5 mg PO BID@1400,2100 [facility] Last Admin: 03/21/24 22:28 Dose: 0.5 mg Documented By: DARIUS Lorazepam (Lorazepam 2 Mg/Ml Vial) 1 mg IVPUSH Q6H PRN PRN Reason: agitation Last Admin: 03/22/24 06:00 Dose: 1 mg Documented By: DARIUS Methylprednisolone Sodium Succinate (Methylprednisolone Sod Succ 40 Mg/Ml Vial) 40 mg IVPUSH Q12H [facility] Last Admin: 03/22/24 09:05 Dose: 40 mg Documented By: SAMMY Multivitamins/Vitamin C (Multivitamin Tablet) 1 tab PO DAILY [facility] Last Admin: 03/21/24 08:58 Dose: 1 tab Documented By: LEO Omeprazole (Omeprazole 40 Mg Capsule.Dr) 40 mg PO DAILY@0630 [facility] Last Admin: 03/22/24 06:03 Dose: Not Given Documented By: DARIUS Non-Admin Reason: pt restless, agitated Ondansetron HCl (Ondansetron Hcl 4 Mg/2 Ml Vial) 4 mg IVPUSH QID PRN PRN Reason: Nausea Last Admin: 03/19/24 11:01 Dose: 4 mg Documented By: GABE Oxycodone HCl (Oxycodone Hcl Immed Release 5 Mg Tablet) 5 mg PO Q4H PRN PRN Reason: Pain, Moderate(Pain Scale 4-6) Last Admin: 03/21/24 13:19 Dose: 5 mg Documented By: LEO <Gabriella Cai PA-C - Last Filed: 03/22/24 10:33> Labs CBC & Chem 7: 03/22/24 02:54 03/22/24 02:54 <Gabriella Cai PA-C - Last Filed: 03/22/24 10:33> Labs: Laboratory Results - last 24 hr 03/21/24 03/21/24 03/21/24 11:24 15:43 20:02 MCV MCH MCHC RDW Plt Count MPV Immature Gran % (Auto) Neut % (Auto) Lymph % (Auto) [place] % (Auto) Eos % (Auto) Baso % (Auto) Lymph # (Auto) [place] # (Auto) Eos # (Auto) Baso # (Auto) Abs Immat Gran (auto) Absolute Neuts (auto) Absolute Nucleated RBC Nucleated RBC % (auto) VBG pH VBG pCO2 VBG pO2 VBG HCO3 VBG O2 Saturation VBG Base Excess Anion Gap Estim Creat Clear Calc Estimated GFR POC Glucose 158 H 156 H 159 H Random Glucose Lactic Acid Calcium Total Bilirubin AST ALT Alkaline Phosphatase B-Natriuretic Peptide Total Protein Albumin 03/22/24 03/22/24 03/22/24 01:41 01:44 02:17 MCV MCH MCHC RDW Plt Count MPV Immature Gran % (Auto) Neut % (Auto) Lymph % (Auto) [place] % (Auto) Eos % (Auto) Baso % (Auto) Lymph # (Auto) [place] # (Auto) Eos # (Auto) Baso # (Auto) Abs Immat Gran (auto) Absolute Neuts (auto) Absolute Nucleated RBC Nucleated RBC % (auto) VBG pH 7.65 H* VBG pCO2 25 VBG pO2 161 VBG HCO3 28 H VBG O2 Saturation 99.0 VBG Base Excess 8.5 Anion Gap Estim Creat Clear Calc Estimated GFR POC Glucose 136 H Random Glucose Lactic Acid Calcium Total Bilirubin AST ALT Alkaline Phosphatase B-Natriuretic Peptide 202 H Total Protein Albumin 03/22/24 03/22/24 02:54 07:32 MCV 85.1 MCH 28.2 MCHC 33.1 RDW 15.3 Plt Count 146 L MPV 10.5 Immature Gran % (Auto) 0.3 Neut % (Auto) 87.4 H Lymph % (Auto) 3.4 L [place] % (Auto) 8.6 Eos % (Auto) 0.2 Baso % (Auto) 0.1 Lymph # (Auto) 0.4 L [place] # (Auto) 1.0 Eos # (Auto) 0.0 Baso # (Auto) 0.0 Abs Immat Gran (auto) 0.03 Absolute Neuts (auto) 9.6 H Absolute Nucleated RBC 0.000 Nucleated RBC % (auto) 0.0 VBG pH VBG pCO2 VBG pO2 VBG HCO3 VBG O2 Saturation VBG Base Excess Anion Gap 13 Estim Creat Clear Calc 66.0 Estimated GFR > 60 POC Glucose 157 H Random Glucose 147 H Lactic Acid 1.1 Calcium 8.6 D Total Bilirubin 0.7 AST 56 H ALT 47 H Alkaline Phosphatase 78 B-Natriuretic Peptide Total Protein 5.4 L Albumin 2.7 L <Gabriella Cai PA-C - Last Filed: 03/22/24 10:33> Microbiology Microbiology Results: Microbiology 03/18/24 Unknown Urine Culture - Final Urine clean catch - Clean Catch Midstream Staphylococcus haemolyticus <Gabriella Cai PA-C - Last Filed: 03/22/24 10:33> Procedures Date of Service Date of Service: 03/22/24 <Gabriella Cai PA-C - Last Filed: 03/22/24 10:33> 03/22/24 <José Miguel Lorenzana MD - Last Filed: 03/22/24 10:39> Progress Note: A&P Assessment and plan (1) Sigmoid volvulus: Status: Acute <VALDEZ Tijerina Last Filed: 03/22/24 10:33> (2) S/P colostomy: Status: Acute <Gabriella Cai PA-C - Last Filed: 03/22/24 10:33> Assessment and Plan: POD #3 s/p Exploratory laparotomy, enterolysis, sigmoid colectomy, descending colostomy for sigmoid volvulus. Ostomy functioning well, incision clean, abd soft. Hypoxia secondary to aspiration PNA, now on IV zosyn. Management as per hospitalist team. NPO pending swallowing eval. Ostomy consult for education for staff. <Gabriella Cai PA-C - Last Filed: 03/22/24 10:33> POD #3 s/p Exploratory laparotomy, enterolysis, sigmoid colectomy, descending colostomy for sigmoid volvulus. Ostomy functioning well, incision clean, abd soft. Hypoxia secondary to aspiration PNA, now on IV zosyn. Management as per hospitalist team. NPO pending swallowing eval. Ostomy consult for education for staff. Events of evening noted and x-rays reviewed. Patient is producing stool per ostomy but may still have dilated loops of small bowel, hiatal hernia. Further management per hospitalist team. <José Miguel Lorenzana MD - Last Filed: 03/22/24 10:39> Time Spent With Patient Time: Total time managing care of this patient today ____ minutes. <Gabriella Cai PA-C - Last Filed: 03/22/24 10:33> Quality Stroke Does the patient have a stroke diagnosis?: No <Gabriella Cai PA-C - Last Filed: 03/22/24 10:33> VTE Prior VTE?: No <Gabriella Cai PA-C - Last Filed: 03/22/24 10:33> VTE Risk Level:: Surgical - high <Gabriella Cai PA-C - Last Filed: 03/22/24 10:33> VTE Device Contraindication: N/A - Device Ordered <Gabriella Cai PA-C - Last Filed: 03/22/24 10:33> VTE Drug Contraindication: N/A - Med Ordered <Gabriella Cai PA-C - Last Filed: 03/22/24 10:33>
--- NOTE | 2024-03-22 10:47 | MHC.SLORD ---
Speech Language Pathology Order Status: HAND VIOLIN MAKER attempted eval with pt this morning, RN consulted. Pt currently medicated d/t restlessness/combativeness. care home staff familiar with pt was at bedside, reported pt is on ground diet with thickened liquids at baseline. Pt currently on 02 mask, gurgly quality to respirations, usp staff noted this sound is not pt baseline. HAND VIOLIN MAKER to assess when pt appropriate, RN to text when pt mentation improves.
[2024-03-22 11:18] LABS: Glucose, Whole Blood 164 mg/dL (60-115)
--- NOTE | 2024-03-22 15:43 | HO.OSTOMY ---
Ostomy Consult: Initial Teaching 79yr old male admitted to [facility] on 03/19/24 07:14 see H&P for detailed history and admission.? Consult for new ostomy teaching. ?He had an End Colostomy creation on 03/19/[address] Lorenzana. ?Upon entry into patient's room, he is lying in his bed, he is not verbally responsive at baseline and lives [facility]. jail nurse and insurance healthcare consultant at bedside requesting education on ostomy care. ?We began by discussing general knowledge about the Colostomy and questions they had. ?We discussed opening and closing the ostomy pouch. We discussed the importance of emptying pouch when 1/3 to 1/2 full, how to empty pouch, and lining water with toilet paper to prevent splash back. They were educated on when to contact biology intern/Dr Lorenzana's office/seek emergency medical treatment. Patient was given some ostomy pouches for transition to home. Aware that Rx written for pouches and rings will be sent by Outpt nurse to [place] for home delivery.? Reviewed written education with care home staff and left at bedside for further review. ?They were advised to watch the education videos supplied by [facility]. Pouch assessed and no leak was noted.? Stoma is red and appears viable through pouch.? Due to patint current resipatory status and level of irritation when emptying his pouch I deferred to change his pouch to future. Will assess at tomorrow?s teaching. They reported having no questions at this time. All questions and concerns addressed at this time. We discussed the following steps: 1. Empty pouch before pouch change 2. Remove pouch using push/pull technique from top to bottom 3. Cleanse stoma and skin with tap water only - no soap or baby wipes 4. Pat dry 5. Measure stoma and cut new pouch no more than 1/8 inch larger than stoma and no smaller than stoma 6. If instructed by your ostomy nurse stretch barrier seal to the size of the stoma and press onto skin around stoma (up to the edge of the stoma but not onto the stoma) 7. Press the new pouch into place and hold for several minutes (close pouch tail) 8. Empty pouch when 1/3 to 1/2 full 9. Change pouch twice weekly on a schedule (for example, every Wednesday and ) and as needed for any leaking (feels like intense itch or burn at edge of stoma) 10. May order pre-cut pouches (already cut to size of stoma) once stoma measures the same size consistently. ?
[2024-03-22 15:56] LABS: Anion Gap 12 (12-20); Blood Urea Nitrogen 31 mg/dL (9-16); Calcium 8.5 mg/dL (8.4-10.2); Carbon Dioxide 26 mmol/L (22-29); Chloride 111 mmol/L (96-108); Creatinine Clr Calc Pharmacy 64.1; Estimated Glomerular Filt Rate > 60; Glucose Random 214 mg/dL (60-115); Potassium 3.6 mmol/L (3.3-5.1); Sodium 145 mmol/L (135-145)
--- NOTE | 2024-03-22 16:00 | MHC.CM.PN ---
spoke with geraldo chapman for dds [phone] explins their home has no nursign fri to mon and if pt requires 02 they can not take pt if his 02 stats are dropping referrals made to [facility] and [facility]
[2024-03-22 16:07] LABS: Glucose, Whole Blood 200 mg/dL (60-115)
--- NOTE | 2024-03-22 16:10 | HO.PM.IMPN ---
Subjective Subjective Date of Service: 03/22/24 Interval History: seen and evaluated today anxious, moving in bed, reaching out to IV and O2 maskk had incident of aspiration overnight with hypoxia Review of Systems Review of Systems: Yes Unobtainable due to mental status Physical Exam Vital Signs: Vital Signs: Last Vital Signs Temp 98.7 F 03/22/24 14:44 Pulse 79 03/22/24 14:44 Resp 16 03/22/24 14:44 BP 132/63 03/22/24 14:44 Pulse Ox 92 03/22/24 14:44 O2 Del Method Oxymask 03/22/24 14:44 O2 Flow Rate 11 03/22/24 14:44 Oxygen Flow Rate 15 03/22/24 02:20 BMI result Body Mass Index 21.4 Const: Other: Constitutional : altered, anxious, not responding Neck : Normal inspection, Supple Cardiovascular : RRR, no JVP, no lower extremity edema Respiratory : fair bilateral air entry, basal fine crackles, no wheezes Gastrointestinal: soft, lax, decreased bowel sounds, Non tender Skin : Warm, Dry Neurological : alert but confused and anxious, unable to assess orientation Objective Data Active Medications Acetaminophen (Acetaminophen 325 Mg Tablet) 650 mg PO Q6H PRN PRN Reason: Fever Or Pain Amantadine HCl (Amantadine Hcl 100 Mg Capsule) 100 mg PO BID@0900,1200 [facility] Last Admin: 03/22/24 14:17 Dose: Not Given Documented By: SAMMY Non-Admin Reason: NPO Chlorhexidine Gluconate (Chlorhexidine Gluc Oral Rinse 15 Ml Mouthwash) 5 ml BUCCAL BID [facility] Last Admin: 03/22/24 14:17 Dose: Not Given Documented By: SAMMY Non-Admin Reason: NPO Doxazosin Mesylate (Doxazosin Mesylate 1 Mg Tablet) 1 mg PO BEDTIME [facility] Last Admin: 03/21/24 22:28 Dose: 1 mg Documented By: DARIUS Finasteride (Finasteride 5 Mg Tablet) 5 mg PO BEDTIME [facility] Last Admin: 03/21/24 22:30 Dose: 5 mg Documented By: DARIUS Fluoxetine HCl (Fluoxetine Hcl 20 Mg Capsule) 40 mg PO DAILY@0900 [facility] Last Admin: 03/22/24 14:17 Dose: Not Given Documented By: SAMMY Non-Admin Reason: NPO Fluticasone Propionate (Fluticasone Propionate Nasal 16 Gm [place]) 2 spray NOSTRIL-B DAILY@0900 [facility] Last Admin: 03/22/24 10:03 Dose: Not Given Documented By: SAMMY Non-Admin Reason: Patient Refused Gabapentin (Gabapentin 300 Mg Capsule) 300 mg PO TID [facility] Last Admin: 03/22/24 15:32 Dose: Not Given Documented By: SAMMY Non-Admin Reason: NPO Glucose (Glucose Gel 15 Gm Gel..Gram.) 15 gm PO Q15M PRN; Protocol PRN Reason: per Hypoglycemia Standing Ord. Guaifenesin/Dextromethorphan (Guaifenesin Dm 100/10/5 Ml 5 Ml Syrup) 5 ml PO Q6H PRN PRN Reason: cough/cold symptoms Heparin Sodium (Porcine) (Heparin Sodium,Porcine 5,000 Unit/Ml Vial) 5,000 unit SUBCUT Q12H [facility] Last Admin: 03/22/24 09:05 Dose: 5,000 unit Documented By: SAMMY Hydromorphone HCl (Hydromorphone Hcl 0.5 Mg/0.5 Ml Syringe) 0.25 mg IVPUSH Q3H PRN; Protocol PRN Reason: Pain, Severe (Pain Scale 7-10) Last Admin: 03/22/24 13:31 Dose: 0.25 mg Documented By: SAMMY Dextrose (D10) 250 mls @ 750 mls/hr IV Q15M PRN; Protocol PRN Reason: per Hypoglycemia Standing Ord. Piperacillin Sod/Tazobactam (Sod 3.375 gm/ Sodium Chloride) 50 mls @ 100 mls/hr IV Q6H [facility] Last Admin: 03/22/24 15:33 Dose: 100 mls/hr Documented By: SAMMY Dextrose/Sodium Chloride (D51/2ns) 1,000 mls @ 80 mls/hr IVCONT .[id number] [facility] Last Admin: 03/22/24 09:05 Dose: 80 mls/hr Documented By: SAMMY Insulin Human Lispro (Insulin Lispro 100 Unit/Ml 3 Ml Vial) 0 unit SUBCUT QIDACHS [facility]; Protocol Last Admin: 03/22/24 14:17 Dose: Not Given Documented By: SAMMY Non-Admin Reason: NPO Loratadine (Loratadine 10 Mg Tablet) 10 mg PO DAILY@0900 [facility] Last Admin: 03/22/24 14:17 Dose: Not Given Documented By: SAMMY Non-Admin Reason: NPO Lorazepam (Lorazepam 0.5 Mg Tablet) 0.5 mg PO BID@1400,2100 [facility] Last Admin: 03/22/24 14:17 Dose: Not Given Documented By: SAMMY Non-Admin Reason: NPO Lorazepam (Lorazepam 2 Mg/Ml Vial) 1 mg IVPUSH Q6H PRN PRN Reason: agitation Last Admin: 03/22/24 11:30 Dose: 1 mg Documented By: SAMMY Comments: ok to give early per Dr. Mendez. Methylprednisolone Sodium Succinate (Methylprednisolone Sod Succ 40 Mg/Ml Vial) 40 mg IVPUSH Q12H [facility] Last Admin: 03/22/24 09:05 Dose: 40 mg Documented By: SAMMY Multivitamins/Vitamin C (Multivitamin Tablet) 1 tab PO DAILY [facility] Last Admin: 03/22/24 14:17 Dose: Not Given Documented By: SAMMY Non-Admin Reason: NPO Omeprazole (Omeprazole 40 Mg [place].) 40 mg PO DAILY@0630 [facility] Last Admin: 03/22/24 06:03 Dose: Not Given Documented By: DARIUS Non-Admin Reason: pt restless, agitated Ondansetron HCl (Ondansetron Hcl 4 Mg/2 Ml Vial) 4 mg IVPUSH QID PRN PRN Reason: Nausea Last Admin: 03/19/24 11:01 Dose: 4 mg Documented By: GABE Oxycodone HCl (Oxycodone Hcl Immed Release 5 Mg Tablet) 5 mg PO Q4H PRN PRN Reason: Pain, Moderate(Pain Scale 4-6) Last Admin: 03/21/24 13:19 Dose: 5 mg Documented By: LEO Labs 03/22/24 02:54 03/22/24 15:37 Labs: Laboratory Results - last 24 hr 03/21/24 03/22/24 03/22/24 20:02 01:41 01:44 MCV MCH MCHC RDW Plt Count MPV Immature Gran % (Auto) Neut % (Auto) Lymph % (Auto) [place] % (Auto) Eos % (Auto) Baso % (Auto) Lymph # (Auto) [place] # (Auto) Eos # (Auto) Baso # (Auto) Abs Immat Gran (auto) Absolute Neuts (auto) Absolute Nucleated RBC Nucleated RBC % (auto) VBG pH 7.65 H* VBG pCO2 25 VBG pO2 161 VBG HCO3 28 H VBG O2 Saturation 99.0 VBG Base Excess 8.5 Anion Gap Estim Creat Clear Calc Estimated GFR POC Glucose 159 H Random Glucose Lactic Acid Calcium Total Bilirubin AST ALT Alkaline Phosphatase B-Natriuretic Peptide 202 H Total Protein Albumin 03/22/24 03/22/24 03/22/24 02:17 02:54 07:32 MCV 85.1 MCH 28.2 MCHC 33.1 RDW 15.3 Plt Count 146 L MPV 10.5 Immature Gran % (Auto) 0.3 Neut % (Auto) 87.4 H Lymph % (Auto) 3.4 L [place] % (Auto) 8.6 Eos % (Auto) 0.2 Baso % (Auto) 0.1 Lymph # (Auto) 0.4 L [place] # (Auto) 1.0 Eos # (Auto) 0.0 Baso # (Auto) 0.0 Abs Immat Gran (auto) 0.03 Absolute Neuts (auto) 9.6 H Absolute Nucleated RBC 0.000 Nucleated RBC % (auto) 0.0 VBG pH VBG pCO2 VBG pO2 VBG HCO3 VBG O2 Saturation VBG Base Excess Anion Gap 13 Estim Creat Clear Calc 66.0 Estimated GFR > 60 POC Glucose 136 H 157 H Random Glucose 147 H Lactic Acid 1.1 Calcium 8.6 D Total Bilirubin 0.7 AST 56 H ALT 47 H Alkaline Phosphatase 78 B-Natriuretic Peptide Total Protein 5.4 L Albumin 2.7 L 03/22/24 03/22/24 03/22/24 10:54 15:37 16:02 MCV MCH MCHC RDW Plt Count MPV Immature Gran % (Auto) Neut % (Auto) Lymph % (Auto) [place] % (Auto) Eos % (Auto) Baso % (Auto) Lymph # (Auto) [place] # (Auto) Eos # (Auto) Baso # (Auto) Abs Immat Gran (auto) Absolute Neuts (auto) Absolute Nucleated RBC Nucleated RBC % (auto) VBG pH VBG pCO2 VBG pO2 VBG HCO3 VBG O2 Saturation VBG Base Excess Anion Gap 12 Estim Creat Clear Calc 64.1 Estimated GFR > 60 POC Glucose 164 H 200 H Random Glucose 214 H Lactic Acid Calcium 8.5 Total Bilirubin AST ALT Alkaline Phosphatase B-Natriuretic Peptide Total Protein Albumin Assessment and Plan (1) Hypoxia: Status: Acute (2) Aspiration pneumonia: Status: Acute (3) Acute hypernatremia: Status: Acute Plan a 79 years old male with Sigmoid volvolus post surgical intervention having hypoxia and altered mentation Hypoxia 2/2 aspiration pneumonia\pneumonitis CXR suggestive of aspiration Covered with Zosyn O2 supplement, wean down as toelrated add steroids IV DRY CLEANER eval NPO for now acute hypernatremia IV D5NS follow BMP Acute inpatient delerium secondary to hospitalization, surgery , medications redirection Haldol PRN for restlessness Explaratory laparotomy w Sigmoid colectomy POD3 post colostomy Ostomy functioning surgery team following Thank you for the consult will continue to monitor with you Quality Stroke Does the patient have a stroke diagnosis?: No VTE Prior VTE?: No VTE Risk Level:: Surgical - high VTE Device Contraindication: N/A - Device Ordered VTE Drug Contraindication: N/A - Med Ordered
[2024-03-22] MEDS: Furosemide 20 MG/2 ML VIAL 40 MG IVPUSH (18:02)
[2024-03-22] MEDS: Haloperidol Lactate 5 MG/ML VIAL 2 MG IM (18:19)
--- NOTE | 2024-03-22 19:00 | PC.NURSE ---
Pt on oxymask 11L, sats 92-96%. Desats rapidly without o2. Restless at times and pulls off O2 and tries to pull at lines and colostomy bag. Sitter at bedside as well as Long Term staff. Medicated for pain with some effect throughout the day. Medicated with Ativan Prn with some effect. Becoming more restless and pulling off O2 frequently. Desats to low 80's. Sats 90-91% on 13L. Lungs diminished. Dr. Mendez notified and in to assess patient. CXR ordered. IV lasix 40mg given x1 @ 1800. Haldol 2mg IM given x1. @ 1820. Report to Oralia cage shift manager nurse.
--- NOTE | 2024-03-22 19:35 | PC.RT ---
Pt was CONSULTING MANAGER due to Hypoxia on oxymask, placed on HFNC w/ max settings. Pt has sitter 1;1 due to pt's altered mental status and ripping everything off. Pt daxa HFNC at this time, will monitor and wean as daxa
--- NOTE | 2024-03-22 19:46 | PM.EVENT ---
Event Note Date of Service: 03/22/24 Event Note: Rapid response was called as patient was found to be hypoxic on OxyMask 13-15 L. Will transfer patient to telemetry and switch to high-flow nasal cannula. Obtaining VBG. Concern for ongoing aspiration. Time Spent With Patient Time: Total time managing care of this patient today ____ minutes.
[2024-03-22 19:57] LABS: Glucose, Whole Blood 192 mg/dL (60-115)
--- NOTE | 2024-03-22 20:00 | PC.NURSE ---
Upon assuming care of pt at 19:00, this RN was informed by previous RN that the pt received Haldol 5mg IM at 18:20 d/t increased restlessness and pulling off O2 frequently. Per report, pt desats to low 80s, pt on 13L via Oxymask. Upon assessment, pt was restless/agitated, pulling off 02 mask, tachypnea, desating to 70s-80s, O2 was increased to 15L, but the pt was sustaining in the same range. Rapid response was called at 19:35. Pt was given PRN Ativan 1mg IVPUSH see MAR, placed on non-rebreather. MD Olivia placed an transfer order for Med[facility]. Pt was transferred to [facility] and report was given to JUANA Ayers. Plan of care ongoing.
[2024-03-22 20:34] LABS: Glucose, Whole Blood 163 mg/dL (60-115)
[2024-03-22 20:34] LABS: VBG Base Excess 8.5 mmol/L; VBG HCO3 32 mmol/L (22-26); VBG pCO2 42 mmHg; VBG pH 7.49 (7.32-7.43); VBG pO2 40 mmHg
[2024-03-22 20:35] LABS: Venous Blood Gas Refer to POC result
[2024-03-22 22:15] LABS: Glucose, Whole Blood 162 mg/dL (60-115)
[2024-03-23] VITALS (10 sets, daily range): BP systolic 121–178; BP diastolic 70–80; PULSE 75–89; RESP 14–22; TEMP 36.4–36.7; O2SAT 90–99
[2024-03-23] MEDS: Heparin Sodium,Porcine 5,000 UNIT/ML VIAL 5000 UNIT SUBCUT (00:51)
[2024-03-23] MEDS: LORazepam 2 MG/ML VIAL 1 MG IVPUSH ×5 (01:54→13:21)
[2024-03-23] MEDS: Piperacillin Sodium/Tazobactam 3.375 GM in 0.9 % Sodium Chloride 50 ML IV (04:44)
--- NOTE | 2024-03-23 07:16 | PC.NURSE ---
pt arrived to unit from med surg due to increase oxygen demand, currently on high flow oxygen. pt nonverbal at baseline, from a halfway. Pt combative, restless, pulling on tubes. medicated with ativan 1 mg IV with slight decrease in agitation. Midline incision to abdomen marisa SENIOR GAME ADVISOR.
[2024-03-23 07:26] LABS: Glucose, Whole Blood 178 mg/dL (60-115)
[2024-03-23] MEDS: methylPREDNISolone Sod Succ 40 MG/ML VIAL IVPUSH (07:33)
--- NOTE | 2024-03-23 08:00 | P.PNIM_ITS ---
Subjective Subjective Date of Service: 03/23/24 Interval History: seen and evaluated this morning Increase O2 requirements to High flow, maxed out on 50L and still dropping to high 80s very restless and anxious, keeps moving and takes off O2 Dr Lorenzana spoke to his guardian who decided to change him to ADOLESCENT COORDINATOR Review of Systems Review of Systems: Yes Unobtainable due to mental status Physical Exam 2 Vital Signs: Vital Signs: Last Vital Signs Temp 98.0 F 03/23/24 04:00 Pulse 87 03/23/24 04:00 Resp 21 H 03/23/24 07:48 BP 144/72 H 03/23/24 04:00 Pulse Ox 90 L 03/23/24 04:00 O2 Del Method High Flow Nasal C annula 03/23/24 04:00 O2 Flow Rate 50 03/23/24 04:00 FiO2 100 03/23/24 04:00 Oxygen Flow Rate 15 03/22/24 19:35 BMI result Body Mass Index 21.4 Const: Other: comfort measures Objective Data Active Medications Acetaminophen (Acetaminophen 325 Mg Tablet) 650 mg PO Q6H PRN PRN Reason: Fever Or Pain Amantadine HCl (Amantadine Hcl 100 Mg Capsule) 100 mg PO BID@0900,1200 [facility] Last Admin: 03/23/24 07:58 Dose: Not Given Documented By: KHALIF Non-Admin Reason: NPO Chlorhexidine Gluconate (Chlorhexidine Gluc Oral Rinse 15 Ml Mouthwash) 5 ml BUCCAL BID [facility] Last Admin: 03/23/24 07:58 Dose: Not Given Documented By: KHALIF Non-Admin Reason: NPO Doxazosin Mesylate (Doxazosin Mesylate 1 Mg Tablet) 1 mg PO BEDTIME [facility] Last Admin: 03/22/24 22:07 Dose: Not Given Documented By: KARLA Non-Admin Reason: NPO Finasteride (Finasteride 5 Mg Tablet) 5 mg PO BEDTIME [facility] Last Admin: 03/21/24 22:30 Dose: 5 mg Documented By: DARIUS Fluoxetine HCl (Fluoxetine Hcl 20 Mg Capsule) 40 mg PO DAILY@0900 [facility] Last Admin: 03/23/24 07:58 Dose: Not Given Documented By: KHALIF Non-Admin Reason: NPO Fluticasone Propionate (Fluticasone Propionate Nasal 16 Gm Funk) 2 spray NOSTRIL-B DAILY@0900 [facility] Last Admin: 03/23/24 07:59 Dose: Not Given Documented By: KHALIF Non-Admin Reason: NPO Gabapentin (Gabapentin 300 Mg Capsule) 300 mg PO TID [facility] Last Admin: 03/23/24 07:59 Dose: Not Given Documented By: KHALIF Non-Admin Reason: NPO Glucose (Glucose Gel 15 Gm Gel..Gram.) 15 gm PO Q15M PRN; Protocol PRN Reason: per Hypoglycemia Standing Ord. Guaifenesin/Dextromethorphan (Guaifenesin Dm 100/10/5 Ml 5 Ml Syrup) 5 ml PO Q6H PRN PRN Reason: cough/cold symptoms Haloperidol Lactate (Haloperidol Lactate 5 Mg/Ml Vial) 2 mg IM ONCE PRN PRN Reason: Restlessness Last Admin: 03/22/24 18:19 Dose: 2 mg Documented By: SAMMY Heparin Sodium (Porcine) (Heparin Sodium,Porcine 5,000 Unit/Ml Vial) 5,000 unit SUBCUT Q12H [facility] Last Admin: 03/23/24 07:59 Dose: Not Given Documented By: KHALIF Non-Admin Reason: patient combative Hydromorphone HCl (Hydromorphone Hcl 0.5 Mg/0.5 Ml Syringe) 0.25 mg IVPUSH Q3H PRN; Protocol PRN Reason: Pain, Severe (Pain Scale 7-10) Last Admin: 03/22/24 13:31 Dose: 0.25 mg Documented By: SAMMY Dextrose (D10) 250 mls @ 750 mls/hr IV Q15M PRN; Protocol PRN Reason: per Hypoglycemia Standing Ord. Piperacillin Sod/Tazobactam (Sod 3.375 gm/ Sodium Chloride) 50 mls @ 100 mls/hr IV Q6H [facility] Last Admin: 03/23/24 07:59 Dose: Not Given Documented By: KHALIF Non-Admin Reason: Patient going ADOLESCENT COORDINATOR Insulin Human Lispro (Insulin Lispro 100 Unit/Ml 3 Ml Vial) 0 unit SUBCUT QIDACHS [facility]; Protocol Last Admin: 03/23/24 07:32 Dose: Not Given Documented By: KHALIF Non-Admin Reason: patient NPO Loratadine (Loratadine 10 Mg Tablet) 10 mg PO DAILY@0900 [facility] Last Admin: 03/23/24 07:59 Dose: Not Given Documented By: KHALIF Non-Admin Reason: NPO Lorazepam (Lorazepam 0.5 Mg Tablet) 0.5 mg PO BID@1400,2100 [facility] Last Admin: 03/22/24 22:08 Dose: Not Given Documented By: KARLA Non-Admin Reason: NPO Lorazepam (Lorazepam 2 Mg/Ml Vial) 1 mg IVPUSH Q6H PRN PRN Reason: agitation Last Admin: 03/23/24 07:33 Dose: 1 mg Documented By: KHALIF Methylprednisolone Sodium Succinate (Methylprednisolone Sod Succ 40 Mg/Ml Vial) 40 mg IVPUSH Q12H [facility] Last Admin: 03/23/24 07:33 Dose: 40 mg Documented By: KHALIF Multivitamins/Vitamin C (Multivitamin Tablet) 1 tab PO DAILY [facility] Last Admin: 03/23/24 07:59 Dose: Not Given Documented By: KHALIF Non-Admin Reason: NPO Omeprazole (Omeprazole 40 Mg Capsule.Dr) 40 mg PO DAILY@0630 [facility] Last Admin: 03/23/24 07:23 Dose: Not Given Documented By: KARLA Non-Admin Reason: NPO Ondansetron HCl (Ondansetron Hcl 4 Mg/2 Ml Vial) 4 mg IVPUSH QID PRN PRN Reason: Nausea Last Admin: 03/19/24 11:01 Dose: 4 mg Documented By: GABE Labs 03/22/24 02:54 03/22/24 15:37 Labs: Laboratory Results - last 24 hr 03/22/24 03/22/24 03/22/24 07:32 10:54 15:37 VBG pH VBG pCO2 VBG pO2 VBG HCO3 VBG O2 Saturation VBG Base Excess Anion Gap 12 Estim Creat Clear Calc 64.1 Estimated GFR > 60 POC Glucose 157 H 164 H Random Glucose 214 H Calcium 8.5 03/22/24 03/22/24 03/22/24 16:02 19:40 20:29 VBG pH 7.49 H VBG pCO2 42 VBG pO2 40 VBG HCO3 32 H VBG O2 Saturation 62.0 VBG Base Excess 8.5 Anion Gap Estim Creat Clear Calc Estimated GFR POC Glucose 200 H 192 H Random Glucose Calcium 03/22/24 03/22/24 03/23/24 20:30 22:11 07:16 VBG pH VBG pCO2 VBG pO2 VBG HCO3 VBG O2 Saturation VBG Base Excess Anion Gap Estim Creat Clear Calc Estimated GFR POC Glucose 163 H 162 H 178 H Random Glucose Calcium Microbiology Microbiology Results: Microbiology 03/22/24 02:54 Blood Culture - Preliminary Blood - Venous No growth after 24 hours. 03/22/24 02:54 Blood Culture - Preliminary Blood - Venous No growth after 24 hours. Assessment and Plan (1) Aspiration pneumonia: Status: Acute (2) Hypoxia: Status: Acute (3) Sigmoid volvulus: Status: Acute Plan a 79 years old male with Sigmoid volvolus post surgical intervention having hypoxia and altered mentation with increase agitation, restlessness and Oxygen requirements to High flow. Primary surgical team spoke to his guardian who decided to change his status to ADOLESCENT COORDINATOR. Hypoxia 2/2 aspiration pneumonia\pneumonitis post Explaratory laparotomy w Sigmoid colectomy DC PO medications, IV antibiotics, vitals and blood work Start Morphine drip PRN Ativan Scopolamine patch MOLST form signed by me and dr Lorenzana Guardian aware and will be contacted with any changes Quality Stroke Does the patient have a stroke diagnosis?: No VTE Prior VTE?: No VTE Risk Level:: Surgical - high VTE Device Contraindication: N/A - Device Ordered VTE Drug Contraindication: N/A - Med Ordered
--- NOTE | 2024-03-23 08:06 | P.PNGS_ITS ---
Subjective Subjective Date of Service: 03/23/24 Interval history: Patient remains agitated, pulling at tubes and bags. Desaturates when off high- flow oxygen, but pulls oxygen mask off when agitated. Physical Exam 2 Vital Signs: Vital Signs: Last Vital Signs Temp 98.4 F 03/23/24 07:53 Pulse 88 03/23/24 07:53 Resp 21 H 03/23/24 07:48 BP 144/72 H 03/23/24 04:00 Pulse Ox 99 03/23/24 07:53 O2 Del Method High Flow Nasal C annula 03/23/24 07:53 O2 Flow Rate 50 03/23/24 07:53 FiO2 80 03/23/24 07:53 Oxygen Flow Rate 15 03/22/24 19:35 BMI result Body Mass Index 21.4 Const: General: combative and confusion Nutritional Appearance: thin O rientation/consciousness: confusion Resp: Other: Tachypneic, on high-flow oxygen 100% sats 93-97% GI: Other: Ostomy patent with large amount of stool. Incision is clean, dry, and intact without erythema. Skin: Other: Warm, dry Neuro: General: confusion Objective Data Active Medications Acetaminophen (Acetaminophen 325 Mg Tablet) 650 mg PO Q6H PRN PRN Reason: Fever Or Pain Chlorhexidine Gluconate (Chlorhexidine Gluc Oral Rinse 15 Ml Mouthwash) 5 ml BUCCAL BID [facility] Last Admin: 03/23/24 07:58 Dose: Not Given Documented By: KHALIF Non-Admin Reason: NPO Guaifenesin/Dextromethorphan (Guaifenesin Dm 100/10/5 Ml 5 Ml Syrup) 5 ml PO Q6H PRN PRN Reason: cough/cold symptoms Haloperidol Lactate (Haloperidol Lactate 5 Mg/Ml Vial) 2 mg IM ONCE PRN PRN Reason: Restlessness Last Admin: 03/22/24 18:19 Dose: 2 mg Documented By: SAMMY Hydromorphone HCl (Hydromorphone Hcl 0.5 Mg/0.5 Ml Syringe) 0.5 mg IVPUSH Q2H PRN; Protocol PRN Reason: Pain, Severe (Pain Scale 7-10) Morphine Sulfate (Morphine Sulfate/Ns) 100 mg in 100 mls @ 0 mls/hr IVCONT .Q0M [facility]; Protocol Lorazepam (Lorazepam 2 Mg/Ml Vial) 1 mg IVPUSH Q2H PRN PRN Reason: anxiety/restlessness Ondansetron HCl (Ondansetron Hcl 4 Mg/2 Ml Vial) 4 mg IVPUSH QID PRN PRN Reason: Nausea Last Admin: 03/19/24 11:01 Dose: 4 mg Documented By: GABE Scopolamine (Scopolamine 1.5 Mg Patch.Td.3) 1.5 mg EAR-BEHIND Q72H [facility] Labs 03/22/24 02:54 03/22/24 15:37 Labs: Laboratory Results - last 24 hr 03/22/24 03/22/24 03/22/24 10:54 15:37 16:02 VBG pH VBG pCO2 VBG pO2 VBG HCO3 VBG O2 Saturation VBG Base Excess Anion Gap 12 Estim Creat Clear Calc 64.1 Estimated GFR > 60 POC Glucose 164 H 200 H Random Glucose 214 H Calcium 8.5 03/22/24 03/22/24 03/22/24 19:40 20:29 20:30 VBG pH 7.49 H VBG pCO2 42 VBG pO2 40 VBG HCO3 32 H VBG O2 Saturation 62.0 VBG Base Excess 8.5 Anion Gap Estim Creat Clear Calc Estimated GFR POC Glucose 192 H 163 H Random Glucose Calcium 03/22/24 03/23/24 22:11 07:16 VBG pH VBG pCO2 VBG pO2 VBG HCO3 VBG O2 Saturation VBG Base Excess Anion Gap Estim Creat Clear Calc Estimated GFR POC Glucose 162 H 178 H Random Glucose Calcium Microbiology Microbiology Results: Microbiology 03/22/24 02:54 Blood Culture - Preliminary Blood - Venous No growth after 24 hours. 03/22/24 02:54 Blood Culture - Preliminary Blood - Venous No growth after 24 hours. 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 I discussed the situation with the patient's guardian, Glory Davison (patient's niece [phone]) and discussed the patient's tenuous respiratory status. She expressed understanding and does not want patient to be intubated or coded. She requested a DNR status with comfort measures. Discussed with Dr. Mendez. Time Spent With Patient Time: Total time managing care of this patient today ____ minutes. Quality Stroke Does the patient have a stroke diagnosis?: No VTE Prior VTE?: No VTE Risk Level:: Surgical - high VTE Device Contraindication: N/A - Device Ordered VTE Drug Contraindication: N/A - Med Ordered
[2024-03-23] MEDS: Scopolamine 1.5 MG PATCH.TD.3 EAR-BEHIND (09:19)
--- NOTE | 2024-03-23 10:50 | HO.OSTOMY ---
Ostomy Consult: Follow up 79yr old male admitted to [facility] on 03/19/24 07:14 see H&P for detailed history and admission.? Consult follow up ostomy teaching. ?He had an End Colostomy creation on 03/19/[address] Lorenzana. ?Upon entry into patient's room, he is lying in his bed, he is not verbally responsive at baseline and [facility]. Informed pt recentlt made ESCROW MANAGER - no teaching needs at this time. will continue to academic support coordinator and shelter foster care case manager with patients ostomy needs while here at [facility].
--- NOTE | 2024-03-23 11:10 | PC.NURSE ---
Patient combative and pulling at wires and high-flow canula. MD notified and ativan given. Patient continues to pulls at wires and pre MD apply soft restraints to bilateral wrists. Per protocol vitals to be taken but not able to obtain d/t patient being combative. Restraints still in place and patient has calmed down, able to take bilateral restraints off. Vitals able to be taken at the time of taking it off. Patient now resting comfortably with morphine drip runinng
--- NOTE | 2024-03-23 12:38 | MHC.CLN ---
NUTRITION PATIENT IS NPO. STATUS IS COMFORT MEASURES ONLY. RD AVAILABLE NEEDED.
--- NOTE | 2024-03-23 13:27 | PC.NURSE ---
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 Called also placed to pt's guardian- Glory re: to ensure both guardians are on board with plan- she reports both guardians are in agreement. This science writer went to pt's bedside to meet with DDS RN @ bedside, she reports DDS is on board with current plan and there are no concerns. Communicated to CM.
[2024-03-23] MEDS: Haloperidol Lactate 5 MG/ML VIAL 2.5 MG IM (14:14)
[2024-03-24] MEDS: Morphine Sulfate/NS 100 MG/100 ML PLAST..BAG 8 MG IVCONT ×2 (00:47→13:56)
[2024-03-24 07:49] VITALS: RESP 18
--- NOTE | 2024-03-24 10:12 | P.PNGS_ITS ---
Subjective Subjective Date of Service: 03/24/24 Interval history: Patient resting comfortably with no evidence of abdominal pain. Respirations are shallow. Physical Exam 2 Vital Signs: Vital Signs: Last Vital Signs Temp 97.6 F 03/23/24 11:04 Pulse 88 03/23/24 11:04 Resp 18 03/24/24 07:49 BP 178/80 H 03/23/24 11:04 Pulse Ox 97 03/23/24 11:04 O2 Del Method High Flow Nasal C annula 03/23/24 11:04 O2 Flow Rate 50 03/23/24 04:00 FiO2 100 03/23/24 04:00 Oxygen Flow Rate 15 03/22/24 19:35 BMI result Body Mass Index 21.4 Const: General: patient obtunded Nutritional Appearance: thin O rientation/consciousness: patient obtunded Resp: Effort & Inspection: no audible wheezes, no cough and no respiratory distress GI: Other: Soft and nondistended, wounds clean, ostomy functioning Skin: Other: Cool, no rashes Neuro: General: patient obtunded Objective Data Active Medications Acetaminophen (Acetaminophen 325 Mg Tablet) 650 mg PO Q6H PRN PRN Reason: Fever Or Pain Chlorhexidine Gluconate (Chlorhexidine Gluc Oral Rinse 15 Ml Mouthwash) 5 ml BUCCAL BID ON [facility] OF [facility] Last Admin: 03/24/24 09:23 Dose: Not Given Documented By: TITI Non-Admin Reason: Patient Asleep Guaifenesin/Dextromethorphan (Guaifenesin Dm 100/10/5 Ml 5 Ml Syrup) 5 ml PO Q6H PRN PRN Reason: cough/cold symptoms Haloperidol Lactate (Haloperidol Lactate 5 Mg/Ml Vial) 2 mg IM ONCE PRN PRN Reason: Restlessness Last Admin: 03/22/24 18:19 Dose: 2 mg Documented By: SAMMY Hydromorphone HCl (Hydromorphone Hcl 0.5 Mg/0.5 Ml Syringe) 0.5 mg IVPUSH Q2H PRN; Protocol PRN Reason: Pain, Severe (Pain Scale 7-10) Morphine Sulfate (Morphine Sulfate/Ns) 100 mg in 100 mls @ 0 mls/hr IVCONT .Q0M [facility]; Protocol Last Admin: 03/24/24 00:47 Dose: 8 mg/hr, 8 mls/hr Documented By: FREDDY Lorazepam (Lorazepam 2 Mg/Ml Vial) 1 mg IVPUSH Q2H PRN PRN Reason: anxiety/restlessness Last Admin: 03/23/24 13:21 Dose: 1 mg Documented By: KHALIF Ondansetron HCl (Ondansetron Hcl 4 Mg/2 Ml Vial) 4 mg IVPUSH QID PRN PRN Reason: Nausea Last Admin: 03/19/24 11:01 Dose: 4 mg Documented By: GABE Scopolamine (Scopolamine 1.5 Mg Patch.Td.3) 1.5 mg EAR-BEHIND Q72H [facility] Last Admin: 03/23/24 09:19 Dose: 1.5 mg Documented By: KHALIF Labs 03/22/24 02:54 03/22/24 15:37 Microbiology Microbiology Results: Microbiology 03/22/24 02:54 Blood Culture - Preliminary Blood - Venous No growth after 48 hours. 03/22/24 02:54 Blood Culture - Preliminary Blood - Venous No growth after 48 hours. 03/19/24 01:59 Blood Culture - Final Blood - Venous No growth after 5 days. 03/19/24 02:06 Blood Culture - Final Blood - Venous No growth after 5 days. 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 Patient has persistent hypoxia after possible aspiration pneumonia. Discussion with patient's guardian yesterday requested no intubation and no resuscitation. She requested patient be placed on comfort measures which is being managed by the hospitalist team. Patient's prognosis is poor. Time Spent With Patient Time: Total time managing care of this patient today ____ minutes. Quality Stroke Does the patient have a stroke diagnosis?: No VTE Prior VTE?: No VTE Risk Level:: Surgical - high VTE Device Contraindication: N/A - Device Ordered VTE Drug Contraindication: N/A - Med Ordered
--- NOTE | 2024-03-24 13:03 | MHC.CM.PN ---
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
--- NOTE | 2024-03-24 15:15 | P.PNIM_ITS ---
Subjective Subjective Date of Service: 03/24/24 Interval History: seen and evaluated this morning looks more comfortable today Review of Systems Review of Systems: Yes Unobtainable due to mental condition Physical Exam 2 Vital Signs: Vital Signs: Last Vital Signs Temp 97.6 F 03/23/24 11:04 Pulse 88 03/23/24 11:04 Resp 18 03/24/24 07:49 BP 178/80 H 03/23/24 11:04 Pulse Ox 97 03/23/24 11:04 O2 Del Method High Flow Nasal C annula 03/23/24 11:04 O2 Flow Rate 50 03/23/24 04:00 FiO2 100 03/23/24 04:00 Oxygen Flow Rate 15 03/22/24 19:35 BMI result Body Mass Index 21.4 Const: Other: comfort measures Objective Data Active Medications Acetaminophen (Acetaminophen 325 Mg Tablet) 650 mg PO Q6H PRN PRN Reason: Fever Or Pain Chlorhexidine Gluconate (Chlorhexidine Gluc Oral Rinse 15 Ml Mouthwash) 5 ml BUCCAL BID [facility] Last Admin: 03/24/24 09:23 Dose: Not Given Documented By: TITI Non-Admin Reason: Patient Asleep Guaifenesin/Dextromethorphan (Guaifenesin Dm 100/10/5 Ml 5 Ml Syrup) 5 ml PO Q6H PRN PRN Reason: cough/cold symptoms Haloperidol Lactate (Haloperidol Lactate 5 Mg/Ml Vial) 2 mg IM ONCE PRN PRN Reason: Restlessness Last Admin: 03/22/24 18:19 Dose: 2 mg Documented By: SAMMY Hydromorphone HCl (Hydromorphone Hcl 0.5 Mg/0.5 Ml Syringe) 0.5 mg IVPUSH Q2H PRN; Protocol PRN Reason: Pain, Severe (Pain Scale 7-10) Morphine Sulfate (Morphine Sulfate/Ns) 100 mg in 100 mls @ 0 mls/hr IVCONT .Q0M [facility]; Protocol Last Admin: 03/24/24 13:56 Dose: 8 mg/hr, 8 mls/hr Documented By: TITI Lorazepam (Lorazepam 2 Mg/Ml Vial) 1 mg IVPUSH Q2H PRN PRN Reason: anxiety/restlessness Last Admin: 03/23/24 13:21 Dose: 1 mg Documented By: HO.KINGKAI Ondansetron HCl (Ondansetron Hcl 4 Mg/2 Ml Vial) 4 mg IVPUSH QID PRN PRN Reason: Nausea Last Admin: 03/19/24 11:01 Dose: 4 mg Documented By: GABE Scopolamine (Scopolamine 1.5 Mg Patch.Td.3) 1.5 mg EAR-BEHIND Q72H [facility] Last Admin: 03/23/24 09:19 Dose: 1.5 mg Documented By: KHALIF Labs 03/22/24 02:54 03/22/24 15:37 Microbiology Microbiology Results: Microbiology 03/22/24 02:54 Blood Culture - Preliminary Blood - Venous No growth after 48 hours. 03/22/24 02:54 Blood Culture - Preliminary Blood - Venous No growth after 48 hours. 03/19/24 01:59 Blood Culture - Final Blood - Venous No growth after 5 days. 03/19/24 02:06 Blood Culture - Final Blood - Venous No growth after 5 days. Assessment and Plan (1) Aspiration pneumonia: Status: Acute (2) Acute respiratory failure with hypoxia: Status: Acute Plan a 79 years old male with Sigmoid volvolus post surgical intervention having hypoxia and altered mentation with increase agitation, restlessness and Oxygen requirements to High flow. 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 Hypoxia 2/2 aspiration pneumonia\pneumonitis post Explaratory laparotomy w Sigmoid colectomy DC PO medications, IV antibiotics, vitals and blood work Start Morphine drip PRN Ativan Scopolamine patch Guardian aware and will be contacted with any changes Quality Stroke Does the patient have a stroke diagnosis?: No VTE Prior VTE?: No VTE Risk Level:: Surgical - high VTE Device Contraindication: N/A - Device Ordered VTE Drug Contraindication: N/A - Med Ordered
[2024-03-24 19:36] VITALS: RESP 16
[2024-03-25] VITALS: RESP 17
[2024-03-25] MEDS: Morphine Sulfate/NS 100 MG/100 ML PLAST..BAG 8 MG IVCONT ×2 (02:29→15:09)
[2024-03-25 03:31] VITALS: RESP 17
[2024-03-25 07:58] VITALS: RESP 16
[2024-03-25] MEDS: Chlorhexidine Gluc Oral Rinse 15 ML MOUTHWASH 5 ML BUCCAL (09:23)
--- NOTE | 2024-03-25 09:57 | P.PNGS_ITS ---
Subjective Subjective Date of Service: 03/25/24 Interval history: no events overnight pt with apparent worsening of respiratory status not responding Physical Exam 2 Vital Signs: Vital Signs: Last Vital Signs Temp 97.6 F 03/23/24 11:04 Pulse 88 03/23/24 11:04 Resp 16 03/25/24 07:58 BP 178/80 H 03/23/24 11:04 Pulse Ox 97 03/23/24 11:04 O2 Del Method High Flow Nasal C annula 03/23/24 11:04 O2 Flow Rate 50 03/23/24 04:00 FiO2 100 03/23/24 04:00 Oxygen Flow Rate 15 03/22/24 19:35 BMI result Body Mass Index 21.4 Const: Other: appears short of breath General: lethargic Orientation/consciousness: lethargic Resp: Effort & Inspection: abnormal respiratory pattern and labored GI: Other: stoma functioning abd soft Objective Data Active Medications Acetaminophen (Acetaminophen 325 Mg Tablet) 650 mg PO Q6H PRN PRN Reason: Fever Or Pain Chlorhexidine Gluconate (Chlorhexidine Gluc Oral Rinse 15 Ml Mouthwash) 5 ml BUCCAL BID [facility] Last Admin: 03/25/24 09:23 Dose: 5 ml Documented By: AYUSH Guaifenesin/Dextromethorphan (Guaifenesin Dm 100/10/5 Ml 5 Ml Syrup) 5 ml PO Q6H PRN PRN Reason: cough/cold symptoms Haloperidol Lactate (Haloperidol Lactate 5 Mg/Ml Vial) 2 mg IM ONCE PRN PRN Reason: Restlessness Last Admin: 03/22/24 18:19 Dose: 2 mg Documented By: SAMMY Hydromorphone HCl (Hydromorphone Hcl 0.5 Mg/0.5 Ml Syringe) 0.5 mg IVPUSH Q2H PRN; Protocol PRN Reason: Pain, Severe (Pain Scale 7-10) Morphine Sulfate (Morphine Sulfate/Ns) 100 mg in 100 mls @ 0 mls/hr IVCONT .Q0M [facility]; Protocol Last Admin: 03/25/24 02:29 Dose: 8 mg/hr, 8 mls/hr Documented By: HANSA Lorazepam (Lorazepam 2 Mg/Ml Vial) 1 mg IVPUSH Q2H PRN PRN Reason: anxiety/restlessness Last Admin: 03/23/24 13:21 Dose: 1 mg Documented By: KHALIF Ondansetron HCl (Ondansetron Hcl 4 Mg/2 Ml Vial) 4 mg IVPUSH QID PRN PRN Reason: Nausea Last Admin: 03/19/24 11:01 Dose: 4 mg Documented By: GABE Scopolamine (Scopolamine 1.5 Mg Patch.Td.3) 1.5 mg EAR-BEHIND Q72H [facility] Last Admin: 03/23/24 09:19 Dose: 1.5 mg Documented By: KHALIF Labs 03/22/24 02:54 03/22/24 15:37 Microbiology Microbiology Results: Microbiology 03/22/24 02:54 Blood Culture - Preliminary Blood - Venous No growth after 48 hours. 03/22/24 02:54 Blood Culture - Preliminary Blood - Venous No growth after 48 hours. Procedures Date of Service Date of Service: 03/25/24 Progress Note: A&P Assessment and plan (1) S/P colostomy: Status: Acute Assessment and Plan: likely has had aspiration pneumonia respiratory status worsening now on comfort measures - caregiver from jail at bedside dw Hospitalist Time Spent With Patient Time: Total time managing care of this patient today ____ minutes. Quality Stroke Does the patient have a stroke diagnosis?: No VTE Prior VTE?: No VTE Risk Level:: Surgical - high VTE Device Contraindication: N/A - Device Ordered VTE Drug Contraindication: N/A - Med Ordered
[2024-03-25 11:36] VITALS: RESP 16
--- NOTE | 2024-03-25 14:30 | HO.PM.IMPN ---
Subjective Subjective Date of Service: 03/25/24 Interval History: seen and evaluated this morning looks more comfortable today Physical Exam Vital Signs: Vital Signs: Last Vital Signs Temp 97.6 F 03/23/24 11:04 Pulse 88 03/23/24 11:04 Resp 16 03/25/24 11:36 BP 178/80 H 03/23/24 11:04 Pulse Ox 97 03/23/24 11:04 O2 Del Method High Flow Nasal C annula 03/23/24 11:04 O2 Flow Rate 50 03/23/24 04:00 FiO2 100 03/23/24 04:00 Oxygen Flow Rate 15 03/22/24 19:35 BMI result Body Mass Index 21.4 Const: Other: comfort measures Objective Data Active Medications Acetaminophen (Acetaminophen 325 Mg Tablet) 650 mg PO Q6H PRN PRN Reason: Fever Or Pain Chlorhexidine Gluconate (Chlorhexidine Gluc Oral Rinse 15 Ml Mouthwash) 5 ml BUCCAL BID [facility] Last Admin: 03/25/24 09:23 Dose: 5 ml Documented By: AYUSH Guaifenesin/Dextromethorphan (Guaifenesin Dm 100/10/5 Ml 5 Ml Syrup) 5 ml PO Q6H PRN PRN Reason: cough/cold symptoms Haloperidol Lactate (Haloperidol Lactate 5 Mg/Ml Vial) 2 mg IM ONCE PRN PRN Reason: Restlessness Last Admin: 03/22/24 18:19 Dose: 2 mg Documented By: SAMMY Hydromorphone HCl (Hydromorphone Hcl 0.5 Mg/0.5 Ml Syringe) 0.5 mg IVPUSH Q2H PRN; Protocol PRN Reason: Pain, Severe (Pain Scale 7-10) Morphine Sulfate (Morphine Sulfate/Ns) 100 mg in 100 mls @ 0 mls/hr IVCONT .Q0M [facility]; Protocol Last Admin: 03/25/24 02:29 Dose: 8 mg/hr, 8 mls/hr Documented By: HANSA Lorazepam (Lorazepam 2 Mg/Ml Vial) 1 mg IVPUSH Q2H PRN PRN Reason: anxiety/restlessness Last Admin: 03/23/24 13:21 Dose: 1 mg Documented By: KHALIF Ondansetron HCl (Ondansetron Hcl 4 Mg/2 Ml Vial) 4 mg IVPUSH QID PRN PRN Reason: Nausea Last Admin: 03/19/24 11:01 Dose: 4 mg Documented By: GABE Scopolamine (Scopolamine 1.5 Mg Patch.Td.3) 1.5 mg EAR-BEHIND Q72H [facility] Last Admin: 03/23/24 09:19 Dose: 1.5 mg Documented By: KHALIF Labs 03/22/24 02:54 03/22/24 15:37 Assessment and Plan (1) Acute respiratory failure with hypoxia: Status: Acute Plan a 79 years old male with Sigmoid volvolus post surgical intervention having hypoxia and altered mentation with increase agitation, restlessness and Oxygen requirements to High flow. 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 Hypoxia 2/2 aspiration pneumonia\pneumonitis post Explaratory laparotomy w Sigmoid colectomy DC PO medications, IV antibiotics, vitals and blood work looks comfortable On Morphine drip PRN Ativan Scopolamine patch Guardian aware and will be contacted with any changes Quality Stroke Does the patient have a stroke diagnosis?: No VTE Prior VTE?: No VTE Risk Level:: Surgical - high VTE Device Contraindication: N/A - Device Ordered VTE Drug Contraindication: N/A - Med Ordered
[2024-03-25 19:58] VITALS: RESP 12
[2024-03-26] MEDS: Morphine Sulfate/NS 100 MG/100 ML PLAST..BAG 8 MG IVCONT (03:47)
[2024-03-26 04:00] VITALS: RESP 10
[2024-03-26] MEDS: Chlorhexidine Gluc Oral Rinse 15 ML MOUTHWASH 5 ML BUCCAL (10:05)
[2024-03-26] MEDS: Scopolamine 1.5 MG PATCH.TD.3 EAR-BEHIND (10:06)
--- NOTE | 2024-03-26 10:41 | P.PNGS_ITS ---
Subjective Subjective Date of Service: 03/26/24 Interval history: Shallow respirations Nonresponsive Physical Exam 2 Vital Signs: Vital Signs: Last Vital Signs Temp 97.6 F 03/23/24 11:04 Pulse 88 03/23/24 11:04 Resp 10 L 03/26/24 04:00 BP 178/80 H 03/23/24 11:04 Pulse Ox 97 03/23/24 11:04 O2 Del Method High Flow Nasal C annula 03/23/24 11:04 O2 Flow Rate 50 03/23/24 04:00 FiO2 100 03/23/24 04:00 Oxygen Flow Rate 15 03/22/24 19:35 BMI result Body Mass Index 21.4 Const: Other: Very shallow respiration General: lethargic and patient obtunded Orientation/consciousness: p atient obtunded and lethargic Resp: Other: Very shallow respirations GI: Other: Colostomy with output Palpation (GI): Soft to palpation Neuro: General: patient obtunded Objective Data Active Medications Acetaminophen (Acetaminophen 325 Mg Tablet) 650 mg PO Q6H PRN PRN Reason: Fever Or Pain Chlorhexidine Gluconate (Chlorhexidine Gluc Oral Rinse 15 Ml Mouthwash) 5 ml BUCCAL BID [facility] Last Admin: 03/26/24 10:05 Dose: 5 ml Documented By: AYUSH Guaifenesin/Dextromethorphan (Guaifenesin Dm 100/10/5 Ml 5 Ml Syrup) 5 ml PO Q6H PRN PRN Reason: cough/cold symptoms Haloperidol Lactate (Haloperidol Lactate 5 Mg/Ml Vial) 2 mg IM ONCE PRN PRN Reason: Restlessness Last Admin: 03/22/24 18:19 Dose: 2 mg Documented By: SAMMY Hydromorphone HCl (Hydromorphone Hcl 0.5 Mg/0.5 Ml Syringe) 0.5 mg IVPUSH Q2H PRN; Protocol PRN Reason: Pain, Severe (Pain Scale 7-10) Morphine Sulfate (Morphine Sulfate/Ns) 100 mg in 100 mls @ 0 mls/hr IVCONT .Q0M [facility]; Protocol Last Admin: 03/26/24 03:47 Dose: 8 mg/hr, 8 mls/hr Documented By: HANSA Lorazepam (Lorazepam 2 Mg/Ml Vial) 1 mg IVPUSH Q2H PRN PRN Reason: anxiety/restlessness Last Admin: 03/23/24 13:21 Dose: 1 mg Documented By: KHALIF Ondansetron HCl (Ondansetron Hcl 4 Mg/2 Ml Vial) 4 mg IVPUSH QID PRN PRN Reason: Nausea Last Admin: 03/19/24 11:01 Dose: 4 mg Documented By: GABE Scopolamine (Scopolamine 1.5 Mg Patch.Td.3) 1.5 mg EAR-BEHIND Q72H [facility] Last Admin: 03/26/24 10:06 Dose: 1.5 mg Documented By: HARIING Labs 03/22/24 02:54 03/22/24 15:37 Procedures Date of Service Date of Service: 03/26/24 Progress Note: A&P Assessment and plan (1) S/P colostomy: Status: Acute Assessment and Plan: Severe respiratory distress likely from aspiration Comfort measures only Discussed with hospitalist service Time Spent With Patient Time: Total time managing care of this patient today ____ minutes. Quality Stroke Does the patient have a stroke diagnosis?: No VTE Prior VTE?: No VTE Risk Level:: Surgical - high VTE Device Contraindication: N/A - Device Ordered VTE Drug Contraindication: N/A - Med Ordered
--- NOTE | 2024-03-26 13:05 | P.PNIM_ITS ---
Subjective Subjective Date of Service: 03/26/24 Interval History: seen and evaluated this morning looks comfortable Physical Exam 2 Vital Signs: Vital Signs: Last Vital Signs Temp 97.6 F 03/23/24 11:04 Pulse 88 03/23/24 11:04 Resp 10 L 03/26/24 04:00 BP 178/80 H 03/23/24 11:04 Pulse Ox 97 03/23/24 11:04 O2 Del Method High Flow Nasal C annula 03/23/24 11:04 O2 Flow Rate 50 03/23/24 04:00 FiO2 100 03/23/24 04:00 Oxygen Flow Rate 15 03/22/24 19:35 BMI result Body Mass Index 21.4 Const: Other: comfort measures , shallow breathing Objective Data Active Medications Acetaminophen (Acetaminophen 325 Mg Tablet) 650 mg PO Q6H PRN PRN Reason: Fever Or Pain Chlorhexidine Gluconate (Chlorhexidine Gluc Oral Rinse 15 Ml Mouthwash) 5 ml BUCCAL BID [facility] Last Admin: 03/26/24 10:05 Dose: 5 ml Documented By: AYUSH Guaifenesin/Dextromethorphan (Guaifenesin Dm 100/10/5 Ml 5 Ml Syrup) 5 ml PO Q6H PRN PRN Reason: cough/cold symptoms Haloperidol Lactate (Haloperidol Lactate 5 Mg/Ml Vial) 2 mg IM ONCE PRN PRN Reason: Restlessness Last Admin: 03/22/24 18:19 Dose: 2 mg Documented By: SAMMY Hydromorphone HCl (Hydromorphone Hcl 0.5 Mg/0.5 Ml Syringe) 0.5 mg IVPUSH Q2H PRN; Protocol PRN Reason: Pain, Severe (Pain Scale 7-10) Morphine Sulfate (Morphine Sulfate/Ns) 100 mg in 100 mls @ 0 mls/hr IVCONT .Q0M [facility]; Protocol Last Admin: 03/26/24 03:47 Dose: 8 mg/hr, 8 mls/hr Documented By: HANSA Lorazepam (Lorazepam 2 Mg/Ml Vial) 1 mg IVPUSH Q2H PRN PRN Reason: anxiety/restlessness Last Admin: 03/23/24 13:21 Dose: 1 mg Documented By: KHALIF Ondansetron HCl (Ondansetron Hcl 4 Mg/2 Ml Vial) 4 mg IVPUSH QID PRN PRN Reason: Nausea Last Admin: 03/19/24 11:01 Dose: 4 mg Documented By: GABE Scopolamine (Scopolamine 1.5 Mg Patch.Td.3) 1.5 mg EAR-BEHIND Q72H [facility] Last Admin: 03/26/24 10:06 Dose: 1.5 mg Documented By: AYUSH Labs 03/22/24 02:54 03/22/24 15:37 Assessment and Plan (1) Acute respiratory failure with hypoxia: Status: Acute Plan a 79 years old male with Sigmoid volvolus post surgical intervention having hypoxia and altered mentation with increase agitation, restlessness and Oxygen requirements to High flow. 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 Hypoxia 2/2 aspiration pneumonia\pneumonitis post Explaratory laparotomy w Sigmoid colectomy DC PO medications, IV antibiotics, vitals and blood work looks comfortable On Morphine drip PRN Ativan Scopolamine patch Guardian aware and will be contacted with any changes Quality Stroke Does the patient have a stroke diagnosis?: No VTE Prior VTE?: No VTE Risk Level:: Surgical - high VTE Device Contraindication: N/A - Device Ordered VTE Drug Contraindication: N/A - Med Ordered
[2024-03-26 15:39] VITALS: RESP 14
[2024-03-26] MEDS: Morphine Sulfate/NS 100 MG/100 ML PLAST..BAG 9 MG IVCONT (17:04)
[2024-03-27 03:41] VITALS: RESP 14
[2024-03-27] MEDS: Morphine Sulfate/NS 100 MG/100 ML PLAST..BAG 9 MG IVCONT (04:04)
--- NOTE | 2024-03-27 07:44 | PM.DS ---
DS: Providers Provider Date of Service: 03/27/24 Date of admission: 03/19/24 07:14 Date of discharge: 03/27/24 Primary care physician: John Carmona MD Consults: 03/19/24 09:02 Consult to Hospitalist Routine Comment: Consulting Provider: Hospitalist Reason For Exam: Sigmoid volvulus, medical management 03/22/24 10:33 Consult to Ostomy Care Routine DS: Diagnosis Discharge Diagnosis (1) Acute respiratory failure with hypoxia: Status: Acute (2) Acute hypernatremia: Status: Acute (3) Aspiration pneumonia: Status: Acute (4) S/P colostomy: Status: Acute (5) Hypoxia: Status: Acute (6) Volvulus: Status: Acute (7) Sigmoid volvulus: Status: Acute DS: Summary Hospital Course Hospital Course: Admission note HPI 79-year-old male, nonverbal resident of [facility] presenting with abdominal distention and obstipation. He was reported by the [facility] staff to be ?not acting like himself. ? He apparently was recently diagnosed with esophageal cancer although records are not available at the time of this dictation. Patient presented to the emergency department and was noted to be markedly distended. The patient was found to be agitated especially when the abdomen was palpated. Laboratories revealed a WBC of 11.3 and lactic acid of 3.2. CT abdomen and pelvis revealed twisting at the base of the mesentery with dilated sigmoid colon up to 10 cm consistent with a sigmoid volvulus. Surgical consultation was requested for further management of the sigmoid volvulus. An Exploratory laparotomy, enterolysis, sigmoid colectomy, descending colostomy for sigmoid volvulus. Ostomy functioning well, incision clean, abd soft. Hypoxia secondary to aspiration PNA. post surgical intervention having hypoxia and altered mentation with increase agitation, restlessness and Oxygen requirements to High flow. 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 The patient was kept comfortable on morphine drip as medications, IV antibiotics, vitals and blood work all discontinued. He was comfortable On Morphine drip and PRN Ativan with Scopolamine patch. The patient on 03/27/2024 0730 AM. Guardian Glory Rosa aware and notified. Time Attestation Discharge Coordination Time (in mins): 45 Quality: Safe Use of Opioids Does Pt have an Active Cancer Diagnosis on the Problem List?: No Quality: Stroke Does the patient have a stroke diagnosis?: No Physical Exam Vital Signs: Vital Signs: Last Vital Signs Temp 97.6 F 03/23/24 11:04 Pulse 88 03/23/24 11:04 Resp 14 03/27/24 03:41 BP 178/80 H 03/23/24 11:04 Pulse Ox 97 03/23/24 11:04 O2 Del Method High Flow Nasal C annula 03/23/24 11:04 O2 Flow Rate 50 03/23/24 04:00 FiO2 100 03/23/24 04:00 Oxygen Flow Rate 15 03/22/24 19:35 BMI result Body Mass Index 21.4 Const: Other: DS: Data Data Completed and Pending Completed studies during hospitalization [Text1]: Pending at discharge 03/19/24 05:56 Surgical [PTH] Routine Imaging Abdominal x-ray: Radiologist's impression: ITS Impressions KUB X-Ray 03/18/24 19:34 IMPRESSION: Questionably bowel obstruction and constipation Electronically signed by: Ramandeep Silva MD 03/18/2024 08:50 PM EST RP Abdomen/Pelvis CT 03/18/24 23:32 IMPRESSION: Twisting at the base of the mesentery with dilatation of the sigmoid colon consistent with sigmoid volvulus. Atelectatic change at the lung bases. Moderate hiatal hernia. Fleischner guidelines were followed. Electronically signed by: Joaquin Jara MD 03/19/2024 01:14 AM EST RP Chest X-Ray 03/19/24 03:31 IMPRESSION: The G-tube appears to be coiled within a distended esophagus which was present on prior CT. The tip of the G-tube is in the region of the gastroesophageal junction with side port at the level of the mid to lower chest. Consider readjustment. There appears to be bibasilar atelectasis. Distended/dilated bowel loops again seen Electronically signed by: Joaquin Jara MD 03/19/2024 04:23 AM EST RP Chest X-Ray 03/22/24 01:40 IMPRESSION: 1. Persistent Mild cardiomegaly and interval development of pulmonary venous congestion. 2. Interval increase in Diffuse vascular prominence and superimposed patchy alveolar densities in bilateral lungs, more intense in the upper lobes, compatible with worsening pneumonia. 3. Probable interval withdrawal of the coiled up enteric tube. A catheter is seen wrapping around the patient's lower jaw. 4. Persistent severe lower thoracic dextroscoliosis. Electronically signed by: Nadira Roberson MD 03/22/2024 06:42 AM EST RP Chest X-Ray 03/22/24 17:00 IMPRESSION: Likely bilateral infiltrates stable to earlier exam at 1:39 AM. Electronically signed by: Bran Prado MD 03/22/2024 06:08 PM EST RP Discharge Plan Discharge Date/Time: 03/27/24 07:30 Anticipated Discharge Date/Time: 03/27/24 07:43 Patient Disposition: Discharge Diagnosis: Referrals: John Carmona MD [Primary Care Provider] - 1 Week Discharge Medications: No Action fluoxetine 40 mg capsule 40 mg PO DAILY@0900 acetaminophen 325 mg tablet 650 mg PO Q6H PRN (Reason: Fever Or Pain) Rx Instructions: prn for headache, joint pain, shown by facial grimacing/vocalizing, and for temp >101 ammonium lactate [Allie-Hydrolac] 12 % Lotion 1 appl TOPICAL BID Rx Instructions: apply to entire body BID, avoid eyes bacitracin zinc 500 unit/gram ointment 1 appl topical QID PRN (Reason: superficial wounds) amantadine HCl 100 mg capsule 100 mg PO BID@0900,1200 guaifenesin [Robafen] 100 mg/5 mL Liquid 100 mg PO Q6H PRN (Reason: cough/cold symptoms) lorazepam 0.5 mg tablet 0.5 mg PO BID@1400,2100 Rx Instructions: if premed is given, hold 2 PM dose that day triamcinolone acetonide 0.025 % cream 1 appl topical BID PRN (Reason: flares) Rx Instructions: apply to trunk and extremities gabapentin 300 mg capsule 300 mg PO TID lorazepam 1 mg tablet 3 mg PO DAILY PRN (Reason: medical appointments) Rx Instructions: given 3 - 1 mg tablets as needed one hour prior to medical appointments for anxiety. May hold for non-invasive, blood draws, or vaccines. If prn is used, hold scheduled 2 pm dose for that day. Neutrogena T-Gel 0.5 % Shampoo 1 appl TOPICAL TUFR Rx Instructions: leave on scalp for 2 minutes after lathering then rinse and repeat. Austedo 9 mg tablet 9 mg PO BIDWM finasteride 5 mg tablet 5 mg PO BEDTIME loratadine 10 mg tablet 10 mg PO DAILY@0900 melatonin 3 mg tablet 3 mg PO BEDTIME Thera 400 mcg tablet 1 tab PO DAILY chlorhexidine gluconate 0.12 % mouthwash 5 ml PO BID Rx Instructions: brush onto teeth twice daily then expectorate for gingivitis omeprazole 40 mg capsule,delayed release(DR/EC) 40 mg PO DAILY@0630 magnesium hydroxide 400 mg/5 mL suspension 30 ml PO BEDTIME PRN (Reason: No BM for 3 days) fluticasone propionate 50 mcg/actuation spray,suspension 2 spray intranasal DAILY@0900 loperamide 2 mg capsule 2 mg PO QID PRN (Reason: loose stools) terazosin 1 mg capsule 1 mg PO BEDTIME 30 Days Qty: 30 11RF Print Language: [place]se
--- NOTE | 2024-03-28 13:36 | P.CDIM_ITS ---
PROVIDER RESPONSE TEXT: To clarify, the appropriate diagnosis supported by the clinical indicators: Acute hypoxic respiratory failure QUERY TEXT: PHYSICIAN'S DOCUMENTATION REQUEST Date of Query: 03/23/2024 08:12 AM EST Patient Name: Aviva Rosa Admit Date: 03/19/2024 Dear Navarro Mendez MD, A review of the medical record indicates additional documentation may be needed. Please review below and update the documentation accordingly. Clinical Indicators: Event Note 03/22 - Rapid response was called as patient with increased oxygen requirements. Crackles heard on auscultation. Tachypnea. Obtained x-ray and ABG;s. Concern for aspiration pneumonia. Patient underwent exploratory laparotomy, enterolysis, sigmoid colectomy, descending colostomy. Progress note dated 03/22 - Had incident of aspiration overnight with hypoxia. Event note 03/22 - Oxymask 13-15 L. Will transfer to telemetry and switch to high-flow nasal cannula. RR 22 pulse ox 90L L Surgery notes using accessory muscles breathing and tachypneic. 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 Please clarify which of the following accurately represents the patient's respiratory status followin g a procedure: Acute postprocedural hypoxic respiratory failure suspected, probable, possible, etc. Hypoxia Acute hypoxic respiratory failure Other (explain) Clinically unable to determine (explain) Thank you, Kandy Zambrano, CCS, CDIS Use of terms such as suspected, likely, concern for, or probable (associated with a specific diagnosi s that is being evaluated, monitored, or treated as if it exists) are acceptable and can be coded in the inpatient se tting, when documented at the time of discharge. Please use your independent medical judgment in providing your response. THIS QUERY IS PART OF THE PERMANENT MEDICAL RECORD
== END 2024-03-27 07:30 | disposition expired | DRG 329 ==
LOC: HO.ED 19:48 → HO.SSS 03-19 03:26 → HO.EDOVER 03-19 07:59 → HO.S3 03-19 08:05 → HO.IMC 03-22 19:46
PROVIDERS: Hospitalist; Student in an Organized Health Care Education/Training Program; Admitting Provider Surgery; Emergency Provider Emergency Medicine; PCP Internal Medicine; Visit Provider Surgery
PROC: 0DBN0ZZ Excision of Sigmoid Colon, Open Approach (ICD-10-PCS; CPT 49000; principal; 2024-03-19 04:15)
DX: K56.2 Volvulus (principal); J69.0 Pneumonitis due to inhalation of food and vomit; J96.01 Acute respiratory failure with hypoxia; Z51.5 Encounter for palliative care; E87.0 Hyperosmolality and hypernatremia; F05 Delirium due to known physiological condition; I10 Essential (primary) hypertension; G25.0 Essential tremor; N40.0 Benign prostatic hyperplasia without lower urinary tract symptoms; F39 Unspecified mood [affective] disorder; Z79.51 Long term (current) use of inhaled steroids; Z79.899 Other long term (current) drug therapy
CPT/HCPCS: 0241U; 36415; 36600; 71045; 74018; 74176; 80048; 80053; 81001; 82803; 82947; 83605; 83690; 83880; 84484; 85025; 87040; 87086; 87088; 87186; 88307; 93005; 99285; C1758; J0131; J0696; J1100; J1171; J1630; J1644; J1940; J2003; J2060; J2250; J2270; J2405; J2543; J2704; J2795; J2919; J3010

== ENCOUNTER → 2024-03-18 19:19 | Outpatient (BNV) | payer MEDICARE, MEDICAID, SELFPAY | PROVIDERS: Emergency Provider Emergency Medicine; PCP Internal Medicine; Visit Provider Surgery | DX: Z93.3 Colostomy status (principal) | CPT/HCPCS: 44141; 99024; 99222 ==

== ENCOUNTER → 2024-03-18 19:24 | Outpatient (BNV) | payer MEDICARE, MEDICAID, SELFPAY | PROVIDERS: Admitting Provider Surgery; Emergency Provider Emergency Medicine; PCP Internal Medicine; Visit Provider Internal Medicine Cardiovascular Disease | DX: R00.0 Tachycardia, unspecified (principal); R94.31 Abnormal electrocardiogram [ECG] [EKG] | CPT/HCPCS: 93010 ==

== ENCOUNTER → 2024-03-19 07:14 | Outpatient (BNV) | payer MEDICARE, MEDICAID, SELFPAY | PROVIDERS: Admitting Provider Surgery; Emergency Provider Emergency Medicine; PCP Internal Medicine; Visit Provider Student in an Organized Health Care Education/Training Program | DX: J69.0 Pneumonitis due to inhalation of food and vomit (principal); J96.01 Acute respiratory failure with hypoxia; Z93.3 Colostomy status; E87.0 Hyperosmolality and hypernatremia | CPT/HCPCS: 99231; 99232; 99239; 99499 ==